=== PATIENT | female | born 1940 | race Caucasian/White ===

== ENCOUNTER 2017-06-01 09:56 | Inpatient (IN) | payer MEDICARE, BC ==
[2017-06-01] MEDS: Sodium Chloride 0.9% 10 ML Syringe FLUSH PRN (10:38)
--- NOTE | 2017-06-01 10:44 | EDM.PDOC ---
ED HPI GENERAL MEDICAL PROBLEM - General Chief Complaint: Gastrointestinal Problem Stated Complaint: PASSED ALOT OF BLOOD Time Seen by Provider: 06/01/17 10:07 Source of Information: Reports: Patient, Family History Limitations: Reports: Physical Impairment - History of Present Illness INITIAL COMMENTS - FREE TEXT/NARRATIVE: 76 years old w f with a h/o MW replacement, on Xarelto, came with her family to the ed due to blood in her stool and feeling dizzy and lightheaded, passing nearly out, feeling week. No C/P no N/V/D or any other acute medical issues. Onset: Today Onset Date: 06/01/17 Onset Time: 06:00 Duration: Hour(s): Location: Reports: Abdomen Severity: Moderate Improves with: Reports: Rest Worsens with: Reports: Movement Context: Reports: Other (blood in stool) Associated Symptoms: Reports: Loss of Appetite, Weakness - Related Data Allergies Allergy/AdvReac Type Severity Reaction Status Date / Time warfarin sodium Allergy Weakness Verified 06/01/17 10:02 [From Coumadin] Home Meds: Home Meds Acetaminophen [Tylenol] 650 mg PO Q4HR PRN 05/24/15 [History] Alendronate Sodium [Fosamax] 70 mg PO WEEKLY 05/24/15 [History] Glucosamine/Chondroitin Sulf A [Glucosamine Chondroitin Cap] 1 each PO DAILY 05/25 [History] Carvedilol 12.5 mg PO BID 06/01/17 [History] Cholecalciferol (Vitamin D3) [Vitamin D3] 1,000 units PO DAILY 06/01/17 [History ] Citalopram [Celexa] 20 mg PO DAILY 06/01/17 [History] Furosemide 40 mg PO DAILY 06/01/17 [History] Gluc HCl/Csa/Shalini Hy/Hyalur Ac [Glucosamine Chondroitin] 1 each PO DAILY [History] Lisinopril 10 mg PO DAILY 06/01/17 [History] Potassium Chloride 10 meq PO BID 06/01/17 [History] Ranitidine [Zantac] 150 mg PO BEDTIME 06/01/17 [History] Rivaroxaban [Xarelto] 20 mg PO DAILY 06/01/17 [History] atorvaSTATin [Lipitor] 40 mg PO DAILY 06/01/17 [History] Past Medical History HEENT History: Reports: Cataract Cardiovascular History: Reports: High Cholesterol, Other (See Below) Other Cardiovascular History: cardiomegaly Gastrointestinal History: Reports: Cholelithiasis Other Gastrointestinal History: LEFT HERNIA SURGERY; 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: Musculoskeletal History: Reports: Arthritis, Back Pain, Chronic Psychiatric History: Reports: Depression Endocrine/Metabolic History: Reports: None Hematologic History: Reports: None Immunologic History: Reports: None Oncologic (Cancer) History: Reports: None Dermatologic History: Reports: None - Past Surgical History HEENT Surgical History: Reports: Cataract Surgery, Tonsillectomy GI Surgical History: Reports: Appendectomy, Cholecystectomy, Colon, Colonoscopy , Hernia, Inguinal Female Surgical History: Reports: Hysterectomy Musculoskeletal Surgical History: Reports: Knee Replacement Social & Family History - Tobacco Use Smoking Status *Q: Never Smoker Second Hand Smoke Exposure: No - Alcohol Use Days Per Week of Alcohol Use: 0 - Recreational Drug Use Recreational Drug Use: No Drug Use in Last 12 Months: No ED ROS GENERAL - Review of Systems Review Of Systems: See Below Constitutional: Reports: Weakness HEENT: Reports: No Symptoms Respiratory: Reports: No Symptoms Cardiovascular: Reports: No Symptoms Endocrine: Reports: No Symptoms GI/Abdominal: Reports: Bloody Stool : Reports: No Symptoms Musculoskeletal: Reports: No Symptoms Skin: Reports: No Symptoms Neurological: Reports: No Symptoms Psychiatric: Reports: No Symptoms Hematologic/Lymphatic: Reports: No Symptoms Immunologic: Reports: No Symptoms ED EXAM, GI/ABD - Physical Exam Exam: See Below Exam Limited By: Other (weakness) General Appearance: Alert, WD/WN, Mild Distress, Thin Eyes: Bilateral: Normal Appearance Ears: Normal External Exam Nose: Normal Inspection Throat/Mouth: Normal Inspection Head: Atraumatic, Normocephalic Neck: Normal Inspection, Supple, Non-Tender, Full Range of Motion Respiratory/Chest: No Respiratory Distress, Lungs Clear Cardiovascular: Normal Peripheral Pulses, Regular Rate, Rhythm, No Edema GI/Abdominal Exam: Normal Bowel Sounds, Soft, Non-Tender, No Organomegaly (Female) Exam: Deferred Rectal (Female) Exam: Bloody Stool (brown stool quiac pos) Back Exam: Normal Inspection, Full Range of Motion Extremities: Normal Inspection, Normal Range of Motion, Non-Tender Neurological: Alert, Oriented, CN II-XII Intact, Normal Cognition, Normal Gait Psychiatric: Normal Affect Skin Exam: Warm, Dry, Pallor Lymphatic: No Adenopathy Course - Vital Signs Text/Narrative:: 76 years old w f with a h/o MW replacement, on Xarelto, came with her family to the ed due to blood in her stool and feeling dizzy and lightheaded, passing nearly out, feeling week. No C/P no N/V/D or any other acute medical issues. PE: Pale, weak apperaing WF, feeling dizzy with hematochezia Labs: WBC 4.3 HGH 8.9 Quiac stool pos. brown Impression: Near syncopal episode, anemia, hematochezia Tx: NS, Protonix 11.40 am Consultation: Dr. Lopez: Accepted the pt for admission, requesting GI consult 11.49 am Consultation: Dr Leslie: NPO now, Stop Xarelto Reexam: Improved Plan: Admit to meds surge tele. Last Recorded V/S: Last Vital Signs Temp 36.4 C 06/01/17 11:56 Pulse 60 06/01/17 11:56 Resp 18 06/01/17 11:56 BP 95/45 L 06/01/17 11:56 Pulse Ox 98 06/01/17 11:56 - Orders/Labs/Meds Orders: Active Orders 24 hr Category Date Time Status TYPE AND SCREEN [BBK] Stat Lab 06/01/17 10:25 Received Sodium Chloride 0.9% [Normal Saline] 1,000 ml Med 06/01/17 10:45 Active IV ASDIRECTED Sodium Chloride 0.9% [Normal Saline] 250 ml Med 06/01/17 11:45 Active IV ASDIRECTED Sodium Chloride 0.9% [Saline Flush] Med 06/01/17 10:15 Active 10 ml FLUSH ASDIRECTED PRN Peripheral IV Insertion Adult [OM.PC] Routine Oth 06/01/17 10:15 Ordered Transfuse PRBC [Transfuse Red Blood Cells] [COMM] Stat Oth 06/01/17 11:36 Ordered Medication Orders Sodium Chloride (Normal Saline) 1,000 mls @ 125 mls/hr IV ASDIRECTED DONAVAN Last Admin: 06/01/17 10:58 Dose: 125 mls/hr Sodium Chloride (Normal Saline) 250 mls @ 100 mls/hr IV ASDIRECTED DONAVAN Ondansetron HCl (Zofran) 4 mg IV Q4H PRN PRN Reason: Nausea/Vomiting Pantoprazole Sodium (Protonix Iv) 40 mg IVPUSH Q12H DONAVAN Last Admin: 06/01/17 12:04 Dose: Sodium Chloride (Saline Flush) 10 ml FLUSH ASDIRECTED PRN PRN Reason: Keep Vein Open Last Admin: 06/01/17 10:38 Dose: 10 ml Labs: Laboratory Tests 06/01/17 06/01/17 06/01/17 Range/Units 10:25 10:25 10:25 WBC 4.3 L (4.5-12.0) X10-3/uL RBC 2.97 L (3.23-5.20) x10(6)uL Hgb 8.9 L D (11.5-15.5) g/dL Hct 27.1 L D (30.0-51.3) % MCV 91.0 (80-96) fL MCH 30.0 (27.7-33.6) pg MCHC 33.0 (32.2-35.4) g/dL RDW 12.7 (11.5-15.5) % Plt Count 216 (125-369) X10(3)uL MPV 8.0 (7.4-10.4) fL Neut % (Auto) 61.7 (46-82) % Lymph % (Auto) 28.2 (13-37) % Patrick % (Auto) 7.5 (4-12) % Eos % (Auto) 1 (1.0-5.0) % Baso % (Auto) 2 (0-2) % Neut # (Auto) 2.7 (1.6-8.3) # Lymph # (Auto) 1.2 (0.6-5.0) # Patrick # (Auto) 0.3 (0.0-1.3) # Eos # (Auto) 0.0 (0.0-0.8) # Baso # (Auto) 0.1 (0.0-0.2) # PT 15.4 H (8.7-11.1) INR 1.51 H (0.89-1.13) Sodium 138 (135-145) mmol/L Potassium 4.4 (3.5-5.3) mmol/L Chloride 109 D (100-110) mmol/L Carbon Dioxide 20 L (23-29) mmol/L BUN 25 H D (8-23) mg/dL Creatinine 1.1 (0.6-1.3) mg/dL Est Cr Clr Drug Dosing 36.40 mL/min Estimated GFR (MDRD) 48 L (>60) BUN/Creatinine Ratio 22.7 H (9-20) Glucose 137 H (80-116) mg/dL Calcium 8.7 (8.6-10.2) mg/dL B-Natriuretic Peptide (0-100) pg/mL Urine Color (YELLOW) Urine Appearance (CLEAR) Urine pH (5.0-6.5) Ur Specific [place] (1.010-1.025) Urine Protein (NEGATIVE) mg/dL Urine Glucose (UA) (NEGATIVE) mg/dL Urine Ketones (NEGATIVE) mg/dL Urine Occult Blood (NEGATIVE) Urine Nitrite (NEGATIVE) Urine Bilirubin (NEGATIVE) Urine Urobilinogen (NEGATIVE) mg/dL Ur Leukocyte Esterase (NEGATIVE) Urine RBC (0) Urine WBC (0) Ur Squamous Epith Cells (NS,R,O) Urine Bacteria (NS) Hyaline Casts (NS) 06/01/17 06/01/17 Range/Units 10:25 11:38 WBC (4.5-12.0) X10-3/uL RBC (3.23-5.20) x10(6)uL Hgb (11.5-15.5) g/dL Hct (30.0-51.3) % MCV (80-96) fL MCH (27.7-33.6) pg MCHC (32.2-35.4) g/dL RDW (11.5-15.5) % Plt Count (125-369) X10(3)uL MPV (7.4-10.4) fL Neut % (Auto) (46-82) % Lymph % (Auto) (13-37) % Patrick % (Auto) (4-12) % Eos % (Auto) (1.0-5.0) % Baso % (Auto) (0-2) % Neut # (Auto) (1.6-8.3) # Lymph # (Auto) (0.6-5.0) # Patrick # (Auto) (0.0-1.3) # Eos # (Auto) (0.0-0.8) # Baso # (Auto) (0.0-0.2) # PT (8.7-11.1) INR (0.89-1.13) Sodium (135-145) mmol/L Potassium (3.5-5.3) mmol/L Chloride (100-110) mmol/L Carbon Dioxide (23-29) mmol/L BUN (8-23) mg/dL Creatinine (0.6-1.3) mg/dL Est Cr Clr Drug Dosing mL/min Estimated GFR (MDRD) (>60) BUN/Creatinine Ratio (9-20) Glucose (80-116) mg/dL Calcium (8.6-10.2) mg/dL B-Natriuretic Peptide 50 (0-100) pg/mL Urine Color Yellow (YELLOW) Urine Appearance Slightly cloudy (CLEAR) Urine pH 5.0 (5.0-6.5) Ur Specific [place] 1.015 (1.010-1.025) Urine Protein Negative (NEGATIVE) mg/dL Urine Glucose (UA) Normal (NEGATIVE) mg/dL Urine Ketones Negative (NEGATIVE) mg/dL Urine Occult Blood Large H (NEGATIVE) Urine Nitrite Negative (NEGATIVE) Urine Bilirubin Negative (NEGATIVE) Urine Urobilinogen Normal (NEGATIVE) mg/dL Ur Leukocyte Esterase Negative (NEGATIVE) Urine RBC 0-5 (0) Urine WBC 0-5 (0) Ur Squamous Epith Cells Few H (NS,R,O) Urine Bacteria Few H (NS) Hyaline Casts Few H (NS) Meds: Medications Generic Name Dose Route Start Last Admin Trade Name Freq PRN Reason Stop Dose Admin Sodium Chloride 1,000 mls @ 125 mls/hr 06/01/17 10:45 06/01/17 10:58 Normal Saline IV 125 mls/hr ASDIRECTED DONAVAN Administration Sodium Chloride 250 mls @ 100 mls/hr 06/01/17 11:45 Normal Saline IV ASDIRECTED DONAVAN Ondansetron HCl 4 mg 06/01/17 11:39 Zofran IV Q4H PRN Nausea/Vomiting Pantoprazole Sodium 40 mg 06/01/17 11:45 06/01/17 12:04 Protonix Iv IVPUSH Not Given Q12H DONAVAN Sodium Chloride 10 ml 06/01/17 10:15 06/01/17 10:38 Saline Flush FLUSH 10 ml ASDIRECTED PRN Administration Keep Vein Open Discontinued Medications Generic Name Dose Route Start Last Admin Trade Name Helen PRN Reason Stop Dose Admin Lactated Ringer's 1,000 mls @ 125 mls/hr 06/01/17 11:45 Ringers, Lactated IV ASDIRECTED [facility] Pantoprazole Sodium 40 mg 06/01/17 11:01 06/01/17 11:02 Protonix Iv IVPUSH 06/01/17 11:02 40 mg ONETIME ONE Administration Departure - Departure Time of Disposition: 11:51 Disposition: Admitted As Inpatient 64 Condition: Fair Clinical Impression: Anemia GI bleed Qualifiers: GI bleed type/associated pathology: unspecified gastrointestinal hemorrhage type Qualified Code(s): K92.2 - Gastrointestinal hemorrhage, unspecified - Discharge Information - My Orders Last 24 Hours: My Active Orders 06/01/17 10:15 Sodium Chloride 0.9% [Saline Flush] 10 ml FLUSH ASDIRECTED PRN Peripheral IV Insertion Adult [OM.PC] Routine 06/01/17 10:25 TYPE AND SCREEN [BBK] Stat 06/01/17 10:45 Sodium Chloride 0.9% [Normal Saline] 1,000 ml IV ASDIRECTED 06/01/17 11:36 Transfuse PRBC [Transfuse Red Blood Cells] [COMM] Stat 06/01/17 11:45 Sodium Chloride 0.9% [Normal Saline] 250 ml IV ASDIRECTED - Assessment/Plan Last 24 Hours: My Active Orders 06/01/17 10:15 Sodium Chloride 0.9% [Saline Flush] 10 ml FLUSH ASDIRECTED PRN Peripheral IV Insertion Adult [OM.PC] Routine 06/01/17 10:25 TYPE AND SCREEN [BBK] Stat 06/01/17 10:45 Sodium Chloride 0.9% [Normal Saline] 1,000 ml IV ASDIRECTED 06/01/17 11:36 Transfuse PRBC [Transfuse Red Blood Cells] [COMM] Stat 06/01/17 11:45 Sodium Chloride 0.9% [Normal Saline] 250 ml IV ASDIRECTED
[2017-06-01] MEDS: Sodium Chloride 0.9% 1,000 ML IV SCH ×2 (10:58→22:33)
[2017-06-01] MEDS: Pantoprazole 40 MG in Sodium Chloride 0.9% 100 ML IV ONE ×2 (11:00→11:02)
[2017-06-01] MEDS ORDERED: Pantoprazole 40 MG Vial IVPUSH ONE (11:01)
[2017-06-01] MEDS ORDERED: Ondansetron 4 MG/2 ML SDV IV PRN (11:39)
[2017-06-01] MEDS ORDERED: Lactated Ringers 1,000 ML IV SCH (11:45)
[2017-06-01] MEDS ORDERED: Sodium Chloride 0.9% 250 ML IV SCH (11:45)
[2017-06-01] MEDS: Pantoprazole 40 MG Vial IVPUSH SCH (12:04)
--- NOTE | 2017-06-01 14:01 | PCM.HP ---
H&P History of Present Illness - General Date of Service: 06/01/17 Admit Problem/Dx: Admission Diagnosis/Problem Admission Diagnosis/Problem Syncope Source of Information: Patient, Family, Old Records History Limitations: Reports: No Limitations - History of Present Illness Initial Comments - Free Text/Narative: 76-year-old female complaining of bright red blood per rectum. This happened this morning once where she noted blood in the toilet bowel, and again in the emergency room with fresh blood noted in the toilet. Was quantified as large amounts. She complains of no pain but was noted to be dizzy ,hypotensive and pale the emergency room. She is on Xarelto for paroxysmal atrial fibrillation last 6 months She has a history of diverticulosis from a lower GI study done in November 2015. Also has a h/o HTN, non-ischemic cardiomyopathy that are stable.She denies fever,or chest pain. - Related Data Allergies/Adverse Reactions: Allergies Allergy/AdvReac Type Severity Reaction Status Date / Time warfarin sodium Allergy Weakness Verified 06/01/17 10:02 [From Coumadin] Home Medications: Home Meds Acetaminophen [Tylenol] 650 mg PO Q4HR PRN 05/24/15 [History] Alendronate Sodium [Fosamax] 70 mg PO WEEKLY 05/24/15 [History] Glucosamine/Chondroitin Sulf A [Glucosamine Chondroitin Cap] 1 each PO DAILY 05/25 [History] Carvedilol 12.5 mg PO BID 06/01/17 [History] Cholecalciferol (Vitamin D3) [Vitamin D3] 1,000 units PO DAILY 06/01/17 [History ] Citalopram [Celexa] 20 mg PO DAILY 06/01/17 [History] Furosemide 40 mg PO DAILY 06/01/17 [History] Gluc HCl/Csa/Shalini Hy/Hyalur Ac [Glucosamine Chondroitin] 1 each PO DAILY [History] Lisinopril 10 mg PO DAILY 06/01/17 [History] Potassium Chloride 10 meq PO BID 06/01/17 [History] Ranitidine [Zantac] 150 mg PO BEDTIME 06/01/17 [History] Rivaroxaban [Xarelto] 20 mg PO DAILY 06/01/17 [History] atorvaSTATin [Lipitor] 40 mg PO DAILY 06/01/17 [History] Past Medical History HEENT History: Reports: Cataract Cardiovascular History: Reports: High Cholesterol, Other (See Below) Other Cardiovascular History: cardiomegaly Gastrointestinal History: Reports: Cholelithiasis Other Gastrointestinal History: LEFT HERNIA SURGERY; 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: Musculoskeletal History: Reports: Arthritis, Back Pain, Chronic Psychiatric History: Reports: Depression Endocrine/Metabolic History: Reports: None Hematologic History: Reports: None Immunologic History: Reports: None Oncologic (Cancer) History: Reports: None Dermatologic History: Reports: None - Infectious Disease History Infectious Disease History: Reports: Chicken Pox - Past Surgical History HEENT Surgical History: Reports: Cataract Surgery, Tonsillectomy GI Surgical History: Reports: Appendectomy, Cholecystectomy, Colon, Colonoscopy , Hernia, Inguinal Female Surgical History: Reports: Hysterectomy Musculoskeletal Surgical History: Reports: Knee Replacement Social & Family History - Family History Family Medical History: Noncontributory - Tobacco Use Smoking Status *Q: Never Smoker Second Hand Smoke Exposure: No - Caffeine Use Caffeine Use: Reports: None - Alcohol Use Days Per Week of Alcohol Use: 0 - Recreational Drug Use Recreational Drug Use: No Drug Use in Last 12 Months: No H&P Review of Systems - Review of Systems: Review Of Systems: ROS reveals no pertinent complaints other than HPI. Exam - Exam Exam: See Below - Vital Signs Vital Signs: Last Vital Signs Temp 97.6 F 06/01/17 11:56 Pulse 60 06/01/17 11:56 Resp 18 06/01/17 11:56 BP 95/45 L 06/01/17 11:56 Pulse Ox 98 06/01/17 11:56 Weight: 55.837 kg - Exam General: Alert, Oriented, 4 HEENT: PERRLA, Hearing Intact, Mucosa Moist & [place], Nares Patent, Normal Nasal Septum, Posterior Pharynx Clear, Conjunctiva Clear, EOMI, EACs Clear, TMs Clear Neck: Supple, Trachea Midline, 2 Lungs: Clear to Auscultation, Normal Respiratory Effort Cardiovascular: Regular Rate, Regular Rhythm GI/Abdominal Exam: Normal Bowel Sounds, Soft, Non-Tender, No Organomegaly, No Distention, No Abnormal Bruit, No Mass, Pelvis Stable (Female) Exam: Deferred Rectal (Female) Exam: Deferred Back Exam: Normal Inspection, Full Range of Motion, NT Extremities: Normal Inspection, Normal Range of Motion, Non-Tender, No Pedal Edema, Normal Capillary Refill Skin: Warm, Dry, Intact Neurological: Cranial Nerves Intact, Reflexes Equal Bilateral Neuro Extensive - Mental Status: Alert, Oriented x3, Normal Mood/Affect, Normal Cognition Neuro Extensive - Motor, Sensory, Reflexes: CN II-XII Intact, Normal Gait, Normal Reflexes Psychiatric: Alert, Normal Affect, Normal Mood - Patient Data Result Diagrams: 06/01/17 10:25 06/01/17 10:25 *Q Meaningful Use (ADM) - VTE *Q VTE Criteria *Q: - Stroke *Q Stroke Criteria *Q: - AMI *Q AMI Criteria *Q: - Problem List (1) Diverticula of colon SNOMED Code(s): 530216434 ICD Code: K57.30 - DVRTCLOS OF LG INT W/O PERFORATION OR ABSCESS W/O BLEEDING Status: Acute Current Visit: Yes (2) Afib SNOMED Code(s): 87584503 ICD Code: I48.91 - UNSPECIFIED ATRIAL FIBRILLATION Status: Acute Current Visit: Yes Qualifiers: Atrial fibrillation type: paroxysmal Qualified Code(s): I48.0 - Paroxysmal atrial fibrillation (3) Long-term (current) use of anticoagulants SNOMED Code(s): 863099624 ICD Code: Z79.01 - FDC (CURRENT) USE OF ANTICOAGULANTS Status: Acute Current Visit: Yes (4) Hiatal hernia SNOMED Code(s): 80276390 ICD Code: K44.9 - DIAPHRAGMATIC HERNIA WITHOUT OBSTRUCTION OR GANGRENE Status: Acute Current Visit: Yes (5) Anemia SNOMED Code(s): 818665833 ICD Code: D64.9 - ANEMIA, UNSPECIFIED Status: Acute Current Visit: Yes Qualifiers: Anemia type: iron deficiency (6) GI bleed SNOMED Code(s): 31159429 ICD Code: K92.2 - GASTROINTESTINAL HEMORRHAGE, UNSPECIFIED Status: Acute Current Visit: Yes Qualifiers: GI bleed type/associated pathology: diverticulosis Qualified Code(s): K57.91 - Diverticulosis of intestine, part unspecified, without perforation or abscess with bleeding (7) Colon polyp SNOMED Code(s): 14961703 ICD Code: K63.5 - POLYP OF COLON Status: Acute Current Visit: No Qualifiers: Colon polyp type: unspecified (8) MDD (major depressive disorder) SNOMED Code(s): 872500858 ICD Code: F32.9 - MAJOR DEPRESSIVE DISORDER, SINGLE EPISODE, UNSPECIFIED Status: Acute Current Visit: Yes (9) HTN (hypertension) SNOMED Code(s): 53878492 ICD Code: I10 - ESSENTIAL (PRIMARY) HYPERTENSION Status: Acute Current Visit: Yes (10) Non-ischemic cardiomyopathy SNOMED Code(s): 29594473 ICD Code: I42.8 - OTHER CARDIOMYOPATHIES Status: Acute Current Visit: Yes Problem List Initiated/Reviewed/Updated: Yes Orders Last 24hrs: Active Orders 24 hr Category Date Time Status Cardiac Monitoring [RC] .As Directed Care 06/01/17 12:09 Active NPO Now [Nothing per Oral Now Diet] [DIET] Diet 06/01/17 Dinner Ordered RED BLOOD CELLS LP [BBK] Routine Lab 06/01/17 10:25 Results Medication Orders Sodium Chloride (Normal Saline) 1,000 mls @ 125 mls/hr IV ASDIRECTED DONAVAN Last Admin: 06/01/17 10:58 Dose: 125 mls/hr Sodium Chloride (Normal Saline) 250 mls @ 100 mls/hr IV ASDIRECTED DONAVAN Ondansetron HCl (Zofran) 4 mg IV Q4H PRN PRN Reason: Nausea/Vomiting Pantoprazole Sodium (Protonix Iv) 40 mg IVPUSH Q12H DONAVAN Last Admin: 06/01/17 12:04 Dose: Sodium Chloride (Saline Flush) 10 ml FLUSH ASDIRECTED PRN PRN Reason: Keep Vein Open Last Admin: 06/01/17 10:38 Dose: 10 ml Assessment/Plan Comment:: Her baseline hemoglobin from December this year is 12.9 g/dl. Dwon to 8.[address] blood products with PRBCs 2 units of 8 hours. PPI is not a bad idea.I have also consulted Dr. Gilbert to see if colonoscopy is needed.She had one last y ear(11/22)-. In the meantime I will hold off on several. We'll resume home medications.
[2017-06-01] MEDS: Famotidine 20 MG Tab PO SCH (21:38)
[2017-06-01] MEDS ORDERED: Acetaminophen 325 MG Tab PO PRN (21:49)
[2017-06-02] MEDS: Pantoprazole 40 MG Vial IVPUSH SCH ×3 (00:15→23:51)
[2017-06-02] MEDS: Sodium Chloride 0.9% 1,000 ML IV SCH (06:09)
--- NOTE | 2017-06-02 09:03 | PCM.PN ---
- General Info Date of Service: 06/02/17 Admission Dx/Problem (Free Text): Admission Diagnosis/Problem Admission Diagnosis/Problem Syncope Subjective Update: Patient slept well overnight, complains of mild to moderate left lower quadrant abdominal pain. She had normal stools with no blood. No vomiting chest pain or shortness of breath. Functional Status: Reports: New Symptoms (LLQ apin) - Review of Systems General: Reports: No Symptoms HEENT: Reports: No Symptoms Pulmonary: Reports: No Symptoms Cardiovascular: Reports: No Symptoms Gastrointestinal: Denies: Hematochezia, Nausea, Vomiting - Patient Data Vitals - Most Recent: Last Vital Signs Temp 97.8 F 06/02/17 04:50 Pulse 65 06/02/17 04:50 Resp 18 06/02/17 04:50 BP 148/78 H 06/02/17 04:50 Pulse Ox 95 06/02/17 04:50 Weight - Most Recent: 56.472 kg I&O - Last 24 Hours: Intake & Output 06/01/17 06/02/17 06/02/17 22:59 06:59 14:59 Intake Total 88 888 Output Total 1000 350 Balance -912 538 Lab Results Last 24 Hours: Laboratory Results - last 24 hr 06/02/17 Range/Units 06:10 WBC 4.3 L (4.5-12.0) X10-3/uL RBC 3.80 (3.23-5.20) x10(6)uL Hgb 11.0 L (11.5-15.5) g/dL Hct 33.2 (30.0-51.3) % MCV 87.5 (80-96) fL MCH 28.8 (27.7-33.6) pg MCHC 32.9 (32.2-35.4) g/dL RDW 13.0 (11.5-15.5) % Plt Count 163 (125-369) X10(3)uL MPV 7.8 (7.4-10.4) fL Neut % (Auto) 56.2 (46-82) % Lymph % (Auto) 31.9 (13-37) % [place] % (Auto) 10.6 (4-12) % Eos % (Auto) 1 (1.0-5.0) % Baso % (Auto) 1 (0-2) % Neut # (Auto) 2.4 (1.6-8.3) # Lymph # (Auto) 1.4 (0.6-5.0) # [place] # (Auto) 0.5 (0.0-1.3) # Eos # (Auto) 0.0 (0.0-0.8) # Baso # (Auto) 0.0 (0.0-0.2) # Med Orders - Current: Current Medications Acetaminophen (Tylenol) 650 mg PO Q4H PRN PRN Reason: Pain Last Admin: 06/01/17 22:12 Dose: 650 mg Citalopram Hydrobromide (Celexa) 20 mg PO DAILY [facility] Famotidine (Pepcid) 20 mg PO BEDTIME [facility] Last Admin: 06/01/17 21:38 Dose: 20 mg Furosemide (Lasix) 40 mg PO DAILY [facility] Ondansetron HCl (Zofran) 4 mg IV Q4H PRN PRN Reason: Nausea/Vomiting Pantoprazole Sodium (Protonix Iv) 40 mg IVPUSH Q12H [facility] Last Admin: 06/02/17 00:15 Dose: 40 mg Sodium Chloride (Saline Flush) 10 ml FLUSH ASDIRECTED PRN PRN Reason: Keep Vein Open Last Admin: 06/01/17 10:38 Dose: 10 ml Discontinued Medications Sodium Chloride (Normal Saline) 1,000 mls @ 125 mls/hr IV ASDIRECTED [facility] Last Admin: 06/02/17 06:09 Dose: 125 mls/hr Sodium Chloride (Normal Saline) 250 mls @ 100 mls/hr IV ASDIRECTED [facility] Lactated Ringer's (Ringers, Lactated) 1,000 mls @ 125 mls/hr IV ASDIRECTED [facility] Pantoprazole Sodium (Protonix Iv) 40 mg IVPUSH ONETIME ONE Stop: 06/01/17 11:02 Last Admin: 06/01/17 11:02 Dose: 40 mg - Exam General: Alert, Oriented HEENT: Pupils Equal, Pupils Reactive, EOMI, Mucous Membr. Moist/[place] Neck: Supple Lungs: Clear to Auscultation, Normal Respiratory Effort Cardiovascular: Regular Rate, Regular Rhythm GI/Abdominal Exam: Normal Bowel Sounds, Tender (LLQ). No: Rebound, Hernia, Mass , Hepatomegaly - Problem List & Annotations (1) Diverticula of colon SNOMED Code(s): 898934941 Code(s): K57.30 - DVRTCLOS OF LG INT W/O PERFORATION OR ABSCESS W/O BLEEDING Status: Acute Current Visit: Yes (2) Afib SNOMED Code(s): 06378617 Code(s): I48.91 - UNSPECIFIED ATRIAL FIBRILLATION Status: Acute Current Visit: Yes Qualifiers: Atrial fibrillation type: paroxysmal Qualified Code(s): I48.0 - Paroxysmal atrial fibrillation (3) Long-term (current) use of anticoagulants SNOMED Code(s): 610647169 Code(s): Z79.01 - REAL ESTATE LEGAL ASSISTANT (CURRENT) USE OF ANTICOAGULANTS Status: Acute Current Visit: Yes (4) Hiatal hernia SNOMED Code(s): 15771429 Code(s): K44.9 - DIAPHRAGMATIC HERNIA WITHOUT OBSTRUCTION OR GANGRENE Status: Acute Current Visit: Yes (5) Anemia SNOMED Code(s): 205986132 Code(s): D64.9 - ANEMIA, UNSPECIFIED Status: Acute Current Visit: Yes Qualifiers: Anemia type: iron deficiency (6) GI bleed SNOMED Code(s): 94662430 Code(s): K92.2 - GASTROINTESTINAL HEMORRHAGE, UNSPECIFIED Status: Acute Current Visit: Yes Qualifiers: GI bleed type/associated pathology: diverticulosis Qualified Code(s): K57.91 - Diverticulosis of intestine, part unspecified, without perforation or abscess with bleeding (7) Colon polyp SNOMED Code(s): 93779779 Code(s): K63.5 - POLYP OF COLON Status: Acute Current Visit: No Qualifiers: Colon polyp type: unspecified (8) MDD (major depressive disorder) SNOMED Code(s): 139634018 Code(s): F32.9 - MAJOR DEPRESSIVE DISORDER, SINGLE EPISODE, UNSPECIFIED Status: Acute Current Visit: Yes (9) HTN (hypertension) SNOMED Code(s): 79596727 Code(s): I10 - ESSENTIAL (PRIMARY) HYPERTENSION Status: Acute Current Visit: Yes (10) Non-ischemic cardiomyopathy SNOMED Code(s): 92412998 Code(s): I42.8 - OTHER CARDIOMYOPATHIES Status: Acute Current Visit: Yes (11) LLQ abdominal pain SNOMED Code(s): 759499645 Code(s): R10.32 - LEFT LOWER QUADRANT PAIN Status: Acute Current Visit: Yes - Problem List Review Problem List Initiated/Reviewed/Updated: Yes - My Orders Last 24 Hours: My Active Orders 06/01/17 14:07 Height and Weight [RC] 06 06/01/17 14:08 Intake and Output [RC] 06,14,22 Oxygen Therapy [RC] PRN Vital Signs [RC] Q4H 06/01/17 21:00 Famotidine [Pepcid] 20 mg PO BEDTIME 06/01/17 21:49 Acetaminophen [Tylenol] 650 mg PO Q4H PRN 06/02/17 08:57 Abdomen Pelvis w Cont [CT] Routine 06/02/17 08:58 Convert IV to Saline Lock [OM.PC] Urgent 06/02/17 09:00 Citalopram [Celexa] 20 mg PO DAILY Furosemide [Lasix] 40 mg PO DAILY 06/02/17 Lunch Adult Diet [DIET] 06/03/17 05:11 BASIC METABOLIC PANEL,BMP [CHEM] AM CBC WITH AUTO DIFF [HEME] AM - Plan Plan:: Her hemoglobin is up to 11. I discussed to Dr. Leslie yesterday, she had an EGD barely 2 months ago, and a colonoscopy year ago that showed diverticulosis. We believe that the diverticulosis is the source of the bleeding along with the Xarelto. Her hemoglobin is stable now and vital signs remain stable and she is asymptomatic after stopping the anticoagulant. The new pain in the abdomen will be investigated by CT scan. Meanwhile,I have advanced her diet today and will repeat the hemoglobin and hematocrit tomorrow morning with intention of discharging home,if stable
[2017-06-02] MEDS: Citalopram 20 MG Tab PO SCH (09:39)
[2017-06-02] MEDS: Furosemide 40 MG Tab PO SCH (09:39)
[2017-06-02] MEDS ORDERED: Iopamidol 755 Mg/ML 75 ML Bottle IV ONE (10:32)
--- NOTE | 2017-06-02 11:07 | CONS ---
DATE OF CONSULTATION: 06/02/2017 HISTORY: This 76-year-old female, seen in consultation from Dr. Lopez for evaluation of hematochezia. The patient presented to the emergency room yesterday with couple episodes of bright red blood per rectum. She was also hypotensive, lightheaded, and dizzy. She has a history of diverticulosis on her last colonoscopy a year and a half ago. She has had a previous episode of bleeding presumed from diverticulosis, but not as much blood as the recent episode. She also has a known hiatal hernia and is considering hiatal hernia surgery in the near future. She recently had an upper endoscopy for evaluation. She is also on Xarelto for atrial fibrillation. Since being hospitalized, she has received IV fluids and 2 units of packed red blood cells. Her hemoglobin has gone from 8.9 to 11. She is feeling much better today and denies any of her dizziness or lightheadedness. Her vitals are reviewed and improved. PAST MEDICAL HISTORY: Reviewed as above. PHYSICAL EXAMINATION: GENERAL: She is a pleasant lady in no acute distress. Her vitals are reviewed and within normal limits. Labs were also reviewed. GI: Abdomen is soft with mild left-sided tenderness. There are no masses or hernias palpable. ASSESSMENT: Lower GI bleed. PLAN: The patient's bleeding appears to have stopped since she has not had a bloody stool since yesterday. CT scan of the abdomen and pelvis are ordered for today to rule out any colitis or other etiology. If no abnormalities are seen, I do not feel that another colonoscopy is necessary since she had one done last year. /[id number] VANDANA/NELLA
[2017-06-02] MEDS: Sodium Chloride 0.9% 10 ML Syringe FLUSH PRN ×2 (11:46→23:51)
[2017-06-02] MEDS: Famotidine 20 MG Tab PO SCH (20:02)
--- NOTE | 2017-06-03 08:46 | PCM.PN ---
- General Info Date of Service: 06/03/17 Admission Dx/Problem (Free Text): Patient without complaints. She denies rectal bleeding, fevers, chills, shortness of breath, abdominal pain, diarrhea, constipation or vomiting. Shows has a little chest discomfort and she is going to see the combat control in 2 days for this. - Patient Data Vitals - Most Recent: Last Vital Signs Temp 97.8 F 06/03/17 05:30 Pulse 76 06/03/17 05:30 Resp 18 06/03/17 05:30 BP 156/69 H 06/03/17 05:30 Pulse Ox 97 06/03/17 05:30 Weight - Most Recent: 123 lb 12.8 oz I&O - Last 24 Hours: Intake & Output 06/02/17 06/03/17 06/03/17 22:59 06:59 14:59 Intake Total 0 400 Balance 0 400 Lab Results Last 24 Hours: Laboratory Results - last 24 hr 06/03/17 06/03/17 Range/Units 06:30 06:30 WBC 5.2 (4.5-12.0) X10-3/uL RBC 3.90 (3.23-5.20) x10(6)uL Hgb 11.4 L (11.5-15.5) g/dL Hct 34.5 (30.0-51.3) % MCV 88.5 (80-96) fL MCH 29.2 (27.7-33.6) pg MCHC 33.0 (32.2-35.4) g/dL RDW 12.8 (11.5-15.5) % Plt Count 179 (125-369) X10(3)uL MPV 8.2 (7.4-10.4) fL Neut % (Auto) 60.5 (46-82) % Lymph % (Auto) 27.7 (13-37) % [place] % (Auto) 10.3 (4-12) % Eos % (Auto) 1 (1.0-5.0) % Baso % (Auto) 1 (0-2) % Neut # (Auto) 3.3 (1.6-8.3) # Lymph # (Auto) 1.4 (0.6-5.0) # [place] # (Auto) 0.5 (0.0-1.3) # Eos # (Auto) 0.0 (0.0-0.8) # Baso # (Auto) 0.0 (0.0-0.2) # Sodium 138 (135-145) mmol/L Potassium 3.5 (3.5-5.3) mmol/L Chloride 106 (100-110) mmol/L Carbon Dioxide 24 (23-29) mmol/L BUN 16 (8-23) mg/dL Creatinine 0.8 (0.6-1.3) mg/dL Est Cr Clr Drug Dosing 50.05 mL/min Estimated GFR (MDRD) > 60 (>60) BUN/Creatinine Ratio 20.0 (9-20) Glucose 92 (80-116) mg/dL Calcium 8.0 L (8.6-10.2) mg/dL Med Orders - Current: Current Medications Acetaminophen (Tylenol) 650 mg PO Q4H PRN PRN Reason: Pain Last Admin: 06/01/17 22:12 Dose: 650 mg Citalopram Hydrobromide (Celexa) 20 mg PO DAILY [facility] Last Admin: 06/02/17 09:39 Dose: 20 mg Famotidine (Pepcid) 20 mg PO BEDTIME [facility] Last Admin: 06/02/17 20:02 Dose: 20 mg Furosemide (Lasix) 40 mg PO DAILY [facility] Last Admin: 06/02/17 09:39 Dose: 40 mg Ondansetron HCl (Zofran) 4 mg IV Q4H PRN PRN Reason: Nausea/Vomiting Pantoprazole Sodium (Protonix Iv) 40 mg IVPUSH Q12H [facility] Last Admin: 06/02/17 23:51 Dose: 40 mg Sodium Chloride (Saline Flush) 10 ml FLUSH ASDIRECTED PRN PRN Reason: Keep Vein Open Last Admin: 06/02/17 23:51 Dose: 10 ml Discontinued Medications Sodium Chloride (Normal Saline) 1,000 mls @ 125 mls/hr IV ASDIRECTED [facility] Last Admin: 06/02/17 06:09 Dose: 125 mls/hr Sodium Chloride (Normal Saline) 250 mls @ 100 mls/hr IV ASDIRECTED [facility] Lactated Ringer's (Ringers, Lactated) 1,000 mls @ 125 mls/hr IV ASDIRECTED [facility] Iopamidol (Isovue-370 (76%)) 75 ml IV ONETIME ONE Stop: 06/02/17 10:33 Last Admin: 06/02/17 11:23 Dose: 75 ml Pantoprazole Sodium (Protonix Iv) 40 mg IVPUSH ONETIME ONE Stop: 06/01/17 11:02 Last Admin: 06/01/17 11:02 Dose: 40 mg - Exam General: Alert, Oriented Lungs: Normal Respiratory Effort GI/Abdominal Exam: Normal Bowel Sounds, Soft, Non-Tender, No Organomegaly, No Distention, No Abnormal Bruit, No Mass - Problem List & Annotations (1) GI bleed SNOMED Code(s): 07728660 Code(s): K92.2 - GASTROINTESTINAL HEMORRHAGE, UNSPECIFIED Status: Acute Current Visit: Yes Qualifiers: GI bleed type/associated pathology: diverticulosis Qualified Code(s): K57.91 - Diverticulosis of intestine, part unspecified, without perforation or abscess with bleeding - Problem List Review Problem List Initiated/Reviewed/Updated: Yes - Plan Plan:: Patient maintain her hemoglobin. Discharge her home and hold nonsteroidal anti- inflammatories and her Xarelto for now. I will send a note to Dr. Mahoney in regards to what happened here on [facility] in our clinic.
--- NOTE | 2017-06-03 08:51 | PCM.DCSUM1 ---
Discharge Summary - Hospital Course Free Text/Narrative:: Patient was admitted and the hemoglobin is low and should bright red rectal bleeding. She has a history of diverticulitis. Left lower quadrant pain. She was given 2 units of RBCs and her Xarelto was held. She increase her hemoglobin to over 11. She'll consult with Dr. Leslie. She had a colonoscopy 1 year ago so he elected to do no procedure. Her bleeding stopped after she stopped the Xarelto. She maintained her hemoglobin. We'll discharge her home holding her Xarelto so she sees her primary provider. She does have an appointment with cardiology in 2 days for clearance of her heart regards to a hiatal hernia surgery she will have upcoming. Brief History: 76-year-old female complaining of bright red blood per rectum. This happened this morning once where she noted blood in the toilet bowel, and again in the emergency room with fresh blood noted in the toilet. Was quantified as large amounts. She complains of no pain but was noted to be dizzy ,hypotensive and pale the emergency room. She is on Xarelto for paroxysmal atrial fibrillation last 6 months She has a history of diverticulosis from a lower GI study done in November 2015. Also has a h/o HTN, non-ischemic cardiomyopathy that are stable.She denies fever,or chest pain. - Discharge Data Discharge Date: 06/03/17 Discharge Disposition: Home, Self-Care 01 Condition: Good - Discharge Diagnosis/Problem(s) (1) GI bleed SNOMED Code(s): 97206312 ICD Code: K92.2 - GASTROINTESTINAL HEMORRHAGE, UNSPECIFIED Status: Acute Current Visit: Yes Qualifiers: GI bleed type/associated pathology: diverticulosis Qualified Code(s): K57.91 - Diverticulosis of intestine, part unspecified, without perforation or abscess with bleeding - Patient Instructions Diet: Regular Diet as Tolerated Activity: Apply Ice Driving: May Drive Today Showering/Bathing: May Shower Other/Special Instructions: 1. Recheck with Dr. Alvarez in 7-10 days. 2. She has a cardiology appointment in 2 days from now. 3. Hold Xarelto and NSAIDS until she sees her primary physician. - Discharge Plan Home Medications: Home Meds Acetaminophen [Tylenol] 650 mg PO Q4HR PRN 05/24/15 [History] Alendronate Sodium [Fosamax] 70 mg PO WEEKLY 05/24/15 [History] Glucosamine/Chondroitin Sulf A [Glucosamine Chondroitin Cap] 1 each PO DAILY 05/25 [History] Carvedilol 12.5 mg PO BID 06/01/17 [History] Cholecalciferol (Vitamin D3) [Vitamin D3] 1,000 units PO DAILY 06/01/17 [History ] Citalopram [Citalopram HBr] 20 mg PO DAILY 06/01/17 [History] Furosemide 40 mg PO DAILY 06/01/17 [History] Gluc HCl/Csa/Shalini Hy/Hyalur Ac [Glucosamine Chondroitin] 1 each PO DAILY [History] Lisinopril 10 mg PO DAILY 06/01/17 [History] Potassium Chloride 10 meq PO BID 06/01/17 [History] Ranitidine [Zantac] 150 mg PO BEDTIME 06/01/17 [History] atorvaSTATin [Lipitor] 40 mg PO DAILY 06/01/17 [History] Patient Handouts: Fall Prevention in the Home, [id number], Gastrointestinal Bleeding Forms: ED Department Discharge Referrals: Chad Alvarez MD [Primary Care Provider] - - Patient Data Vitals - Most Recent: Last Vital Signs Temp 97.8 F 06/03/17 05:30 Pulse 76 06/03/17 05:30 Resp 18 06/03/17 05:30 BP 156/69 H 06/03/17 05:30 Pulse Ox 97 06/03/17 05:30 Weight - Most Recent: 123 lb 12.8 oz I&O - Last 24 hours: Intake & Output 06/02/17 06/03/17 06/03/17 22:59 06:59 14:59 Intake Total 0 400 Balance 0 400 Lab Results - Last 24 hrs: Laboratory Results - last 24 hr 06/03/17 06/03/17 Range/Units 06:30 06:30 WBC 5.2 (4.5-12.0) X10-3/uL RBC 3.90 (3.23-5.20) x10(6)uL Hgb 11.4 L (11.5-15.5) g/dL Hct 34.5 (30.0-51.3) % MCV 88.5 (80-96) fL MCH 29.2 (27.7-33.6) pg MCHC 33.0 (32.2-35.4) g/dL RDW 12.8 (11.5-15.5) % Plt Count 179 (125-369) X10(3)uL MPV 8.2 (7.4-10.4) fL Neut % (Auto) 60.5 (46-82) % Lymph % (Auto) 27.7 (13-37) % [place] % (Auto) 10.3 (4-12) % Eos % (Auto) 1 (1.0-5.0) % Baso % (Auto) 1 (0-2) % Neut # (Auto) 3.3 (1.6-8.3) # Lymph # (Auto) 1.4 (0.6-5.0) # [place] # (Auto) 0.5 (0.0-1.3) # Eos # (Auto) 0.0 (0.0-0.8) # Baso # (Auto) 0.0 (0.0-0.2) # Sodium 138 (135-145) mmol/L Potassium 3.5 (3.5-5.3) mmol/L Chloride 106 (100-110) mmol/L Carbon Dioxide 24 (23-29) mmol/L BUN 16 (8-23) mg/dL Creatinine 0.8 (0.6-1.3) mg/dL Est Cr Clr Drug Dosing 50.05 mL/min Estimated GFR (MDRD) > 60 (>60) BUN/Creatinine Ratio 20.0 (9-20) Glucose 92 (80-116) mg/dL Calcium 8.0 L (8.6-10.2) mg/dL Med Orders - Current: Current Medications Acetaminophen (Tylenol) 650 mg PO Q4H PRN PRN Reason: Pain Last Admin: 06/01/17 22:12 Dose: 650 mg Citalopram Hydrobromide (Celexa) 20 mg PO DAILY [facility] Last Admin: 06/02/17 09:39 Dose: 20 mg Famotidine (Pepcid) 20 mg PO BEDTIME [facility] Last Admin: 06/02/17 20:02 Dose: 20 mg Furosemide (Lasix) 40 mg PO DAILY [facility] Last Admin: 06/02/17 09:39 Dose: 40 mg Ondansetron HCl (Zofran) 4 mg IV Q4H PRN PRN Reason: Nausea/Vomiting Pantoprazole Sodium (Protonix Iv) 40 mg IVPUSH Q12H [facility] Last Admin: 06/02/17 23:51 Dose: 40 mg Sodium Chloride (Saline Flush) 10 ml FLUSH ASDIRECTED PRN PRN Reason: Keep Vein Open Last Admin: 06/02/17 23:51 Dose: 10 ml Discontinued Medications Sodium Chloride (Normal Saline) 1,000 mls @ 125 mls/hr IV ASDIRECTED [facility] Last Admin: 06/02/17 06:09 Dose: 125 mls/hr Sodium Chloride (Normal Saline) 250 mls @ 100 mls/hr IV ASDIRECTED [facility] Lactated Ringer's (Ringers, Lactated) 1,000 mls @ 125 mls/hr IV ASDIRECTED [facility] Iopamidol (Isovue-370 (76%)) 75 ml IV ONETIME ONE Stop: 06/02/17 10:33 Last Admin: 06/02/17 11:23 Dose: 75 ml Pantoprazole Sodium (Protonix Iv) 40 mg IVPUSH ONETIME ONE Stop: 06/01/17 11:02 Last Admin: 06/01/17 11:02 Dose: 40 mg *Q Meaningful Use (DIS) - VTE *Q VTE Criteria *Q: - Stroke *Q Stroke Criteria *Q: - AMI *Q AMI Criteria *Q:
[2017-06-03] MEDS: Furosemide 40 MG Tab PO SCH (09:01)
[2017-06-03] MEDS: Citalopram 20 MG Tab PO SCH (09:01)
[2017-06-03 09:17] VITALS: BP 159/72
[2017-06-03] MEDS ORDERED: FLU Vacc QS 2017-18 (36mos UP)/PF 60 MCG/0.5 ML Syringe IM ONE ×2 (10:32→10:45)
== END 2017-06-03 11:23 | disposition home or self-care (01) | DRG 378 ==
LOC: FB.ED 09:56 → FB.MS 11:39
PROVIDERS: ADMIT Family Medicine; ATTEND Family Medicine
PROC: 30233N1 Transfusion of Nonautologous Red Blood Cells into Peripheral Vein, Percutaneous Approach (ICD-10-PCS; principal; 2017-06-01)
DX: K57.91 Diverticulosis of intestine, part unspecified, without perforation or abscess with bleeding (principal); D68.32 Hemorrhagic disorder due to extrinsic circulating anticoagulants; I42.8 Other cardiomyopathies; K92.1 Melena; T45.515A Adverse effect of anticoagulants, initial encounter; Y92.009 Unspecified place in unspecified non-institutional (private) residence as the place of occurrence of the external cause; D64.9 Anemia, unspecified; Z95.2 Presence of prosthetic heart valve; Z79.01 Long term (current) use of anticoagulants; I48.0 Paroxysmal atrial fibrillation; I10 Essential (primary) hypertension; R55 Syncope and collapse; R42 Dizziness and giddiness; K44.9 Diaphragmatic hernia without obstruction or gangrene; R10.32 Left lower quadrant pain; M54.9 Dorsalgia, unspecified; G89.29 Other chronic pain; F32.9 Major depressive disorder, single episode, unspecified; E78.00 Pure hypercholesterolemia, unspecified; Z88.8 Allergy status to other drugs, medicaments and biological substances; Z96.659 Presence of unspecified artificial knee joint; Z23 Encounter for immunization
CPT/HCPCS: 36415; 80048; 81001; 82272; 83880; 85025; 85610; 86850; 86900; 86901; 86920; 86922; 96361; 96374; 99284; 99285; C9113; J7040; J7050; 36430; 74177; 90471; 90686; A9270-GY; J7030; P9016; Q9967

== ENCOUNTER 2018-02-12 06:37 | Day surgery (SDC) | payer MEDICARE, BC ==
[2018-02-12] MEDS ORDERED: Lactated Ringers 1,000 ML IV SCH (06:45)
[2018-02-12] MEDS ORDERED: Lidocaine 0.5% 50 ML SDV INJECT ONE (08:00)
[2018-02-12] MEDS ORDERED: fentaNYL 100 MCG/2 ML SDV IV ONE (08:00)
[2018-02-12] MEDS ORDERED: ceFAZolin 1 GM in Sodium Chloride 0.9% 50 ML IV ONE (08:00)
[2018-02-12] MEDS ORDERED: Propofol 200 MG/20 ML SDV IV ONE (08:00)
[2018-02-12] MEDS ORDERED: Midazolam 1 MG/ML 2 ML SDV IV ONE (08:00)
[2018-02-12] MEDS ORDERED: ceFAZolin 1 GM Vial IVPUSH ONE (08:00)
[2018-02-12 12:03] VITALS: BP 134/69
--- NOTE | 2018-02-14 07:50 | OR ---
DATE OF OPERATION: 02/12/2018 SURGEON: Jhon Ivy DO PREOPERATIVE DIAGNOSIS: Right 4th digit trigger finger. POSTOPERATIVE DIAGNOSIS: Right 4th digit trigger finger. PROCEDURE PERFORMED: Right 4th digit trigger finger release. ANESTHESIA: Saleem block plus conscious sedation. FLUIDS: Lactated Ringer's solution. ESTIMATED BLOOD LOSS: Less than 5 mL. COMPLICATIONS: None. SPECIMENS: None. DISCHARGE DISPOSITION: Stable to PACU. HISTORY/INDICATIONS FOR THE PROCEDURE: The patient was seen preoperatively in the clinic. She had had recent triggering of her finger. She had had previous nonoperative treatment, which did not work, including chiropractic manipulation. Risks and benefits of the procedure were explained to the patient and her family, and informed consent was obtained. DETAILS OF THE PROCEDURE: The patient was seen preoperatively by myself and the anesthesia staff in the preoperative holding area, where the operative site was marked. She was brought to the operative suite by the anesthesia staff, where Saleem block was administered, plus conscious sedation. The right upper extremity was then prepped and draped in a sterile manner. Time out was called, identifying the correct patient, the correct procedure, the correct site, and that antibiotics had been given within appropriate period of time. The incision was made over the A1 nela and carried down through the fat. Self-retaining retractor was used. I used bipolar electrocautery to control some small bleeders. The A1 nela was identified. I used a Ragnell for retraction and then cut through the A1 nela. We then used a Ragnell to exteriorize the tendons, and we were able to do this without difficulty. There was mucoid degeneration of the flexor tendons, but they maintained their strength. The wound was then copiously irrigated with saline and then closed with 3-0 Vicryl in a horizontal mattress method. A sterile dressing was placed, then the patient had the Saleem block let down per anesthesia protocol, and then the patient was transferred from the hospital bed and taken to the PACU in stable condition. /[id number] BS/MODL
== END 2018-02-12 09:55 | disposition home or self-care (01) ==
LOC: FB.SDS 06:37
PROVIDERS: ATTEND Orthopaedic Surgery
DX: M65.341 Trigger finger, right ring finger (principal); I11.0 Hypertensive heart disease with heart failure; I50.42 Chronic combined systolic (congestive) and diastolic (congestive) heart failure; I42.8 Other cardiomyopathies; J44.9 Chronic obstructive pulmonary disease, unspecified; I48.0 Paroxysmal atrial fibrillation; E07.9 Disorder of thyroid, unspecified; D50.9 Iron deficiency anemia, unspecified; F32.0 Major depressive disorder, single episode, mild; Z79.899 Other long term (current) drug therapy; Z88.8 Allergy status to other drugs, medicaments and biological substances
CPT/HCPCS: 01810-QZ; J0690; J2250; J2704; J3010; J7120

== ENCOUNTER 2018-04-25 06:59 | Emergency (ER) | payer MEDICARE, BC ==
--- NOTE | 2018-04-25 07:42 | EDM.PDOC ---
ED HPI GENERAL MEDICAL PROBLEM - General Stated Complaint: CHEST PAIN Time Seen by Provider: 04/25/18 07:06 Source of Information: Reports: Patient, Family History Limitations: Reports: No Limitations - History of Present Illness INITIAL COMMENTS - FREE TEXT/NARRATIVE: 77 y.o.w.f with a S/p Hiatal hernia repair and partial resection of the colon, came to the ed with her family due to left ant chest wall pain for the past few days which is getting slowly worse. Pt is rating a as 2/10. pain is present only when she takes a deep Breath or is palpating her left ant chest wall. Pt feels the pain is superficial, not deep inside the chest. No N/V/D, no diaphoresis, no Dizziness. Pt's daughter said her BP goes up and down, which is the reason why she does not take her BP meds on a regular basis. BP 188/87 pulse 64 RR 18 Pulse ox 100% on RA pt appears to be comfortable. 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: Acetaminophen (Pt was asked not to take ASA) Lower Chest Pain Score (Numeric/FACES): 2 - Related Data Allergies Allergy/AdvReac Type Severity Reaction Status Date / Time rivaroxaban [From Xarelto] Allergy Cannot Verified 04/25/18 07:21 Remember warfarin sodium Allergy Weakness Verified 04/25/18 07:21 [From Coumadin] Home Meds: Home Meds Alendronate Sodium [Fosamax] 70 mg PO WEEKLY 05/24/15 [History] Carvedilol 12.5 mg PO BID 06/01/17 [History] Citalopram [Citalopram HBr] 20 mg PO DAILY 06/01/17 [History] Furosemide 40 mg PO DAILY 06/01/17 [History] Lisinopril 7.5 mg PO DAILY 06/01/17 [History] Potassium Chloride 10 meq PO BID 06/01/17 [History] Ranitidine [Zantac] 150 mg PO BID 06/01/17 [History] atorvaSTATin [Lipitor] 40 mg PO DAILY 06/01/17 [History] Acetaminophen [Tylenol] 650 mg PO DAILY 06/03/17 [History] Calcium Carbonate [Calcium] 600 mg PO DAILY 06/03/17 [History] Pregabalin [Lyrica] 75 mg PO BID 02/11/18 [History] Multivitamin [Multivitamins] 1 tab PO DAILY 04/25/18 [History] Past Medical History HEENT History: Reports: Cataract Cardiovascular History: Reports: High Cholesterol, Hypertension, Other (See Below) Other Cardiovascular History: cardiomegaly Gastrointestinal History: Reports: Cholelithiasis, Hiatal Hernia Other Gastrointestinal History: LEFT HERNIA SURGERY; HX RECTAL PROLAPSE Genitourinary History: Reports: None 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 NEEDS DIRECTION MUCH AT TIME OF ADMISSION Endocrine/Metabolic History: Reports: None Hematologic History: Reports: Blood Transfusion(s) Other Hematologic History: GI BLEED WHILE ON BLOOD THINNER Immunologic History: Reports: None Oncologic (Cancer) History: Reports: None Dermatologic History: Reports: None - Infectious Disease History Infectious Disease History: Reports: Chicken Pox, Measles - Past Surgical History Head Surgeries/Procedures: Reports: None HEENT Surgical History: Reports: Cataract Surgery, Tonsillectomy Cardiovascular Surgical History: Reports: None GI Surgical History: Reports: Appendectomy, Cholecystectomy, Colon, Colonoscopy , Hernia, Inguinal, Jillian Fundoplication Other GI Surgeries/Procedures: PARTIAL COLECTOMY Female Surgical History: Reports: Hysterectomy Endocrine Surgical History: Reports: Other (See Below) Other Endocrine Surgeries/Procedures: Pt is to going to have her thyroid checked this week, as there were some abnormalities Musculoskeletal Surgical History: Reports: Knee Replacement Other Musculoskeletal Surgeries/Procedures:: PAST FX LEFT FEMUR ET LEFT WRIST , ALSO HAS SCAR FROM LOW BACK SURGERY, BUT COULD NOT REMEMBER ONE. FOOT SURGERY PER HX Social & Family History - Family History Family Medical History: Noncontributory - Caffeine Use Caffeine Use: Reports: None ED ROS GENERAL - Review of Systems Review Of Systems: See Below Constitutional: Reports: No Symptoms HEENT: Reports: No Symptoms Respiratory: Reports: Pleuritic Chest Pain (pt with deep insp and palpation of left ant chest wall) Cardiovascular: Reports: Chest Pain Endocrine: Reports: No Symptoms GI/Abdominal: Reports: No Symptoms : Reports: No Symptoms Musculoskeletal: Reports: No Symptoms Skin: Reports: No Symptoms Neurological: Reports: No Symptoms Psychiatric: Reports: No Symptoms Hematologic/Lymphatic: Reports: No Symptoms Immunologic: Reports: No Symptoms ED EXAM, GENERAL - Physical Exam Exam: See Below Exam Limited By: No Limitations General Appearance: Alert, WD/WN, Mild Distress Eye Exam: Bilateral Eye: Normal Inspection Ears: Normal External Exam Ear Exam: Bilateral Ear: Auricle Normal Nose: Normal Inspection Throat/Mouth: Normal Inspection, Normal Lips, Normal Gums, Normal Oropharynx, Normal Voice, No Airway Compromise Head: Atraumatic, Normocephalic Neck: Normal Inspection, Supple, Non-Tender, Full Range of Motion Respiratory/Chest: No Respiratory Distress, Lungs Clear, Normal Breath Sounds Cardiovascular: Normal Peripheral Pulses, Regular Rate, Rhythm, No Edema, No Gallop, No JVD, No Murmur, No Rub Peripheral Pulses: 1+: Radial (L) GI/Abdominal: Normal Bowel Sounds (Female) Exam: Deferred Rectal (Female) Exam: Deferred Back Exam: Normal Inspection, Full Range of Motion Extremities: Normal Inspection, Normal Range of Motion, Non-Tender, No Pedal Edema, Normal Capillary Refill Neurological: Alert, Oriented, CN II-XII Intact, Normal Cognition, Normal Gait, No Motor/Sensory Deficits Psychiatric: Normal Affect, Normal Mood Skin Exam: Warm, Dry, Intact, Normal Color, No Rash Lymphatic: No Adenopathy EKG INTERPRETATION EKG Date: 04/25/18 Time: 07:15 Rhythm: NSR Rate (Beats/Min): [address]: Normal P-Wave: Present QRS: Normal ST-T: Normal QT: Normal Comparison: NA - No Prior EKG Course - Vital Signs Text/Narrative:: 77 y.o.w.f with a S/p Hiatal hernia repair and partial resection of the colon, came to the ed with her family due to left ant chest wall pain for the past few days which is getting slowly worse. Pt is rating a as 2/10. pain is present only when she takes a deep Breath or is palpating her left ant chest wall. Pt feels the pain is superficial, not deep inside the chest. No N/V/D, no diaphoresis, no Dizziness. Pt's daughter said her BP goes up and down, which is the reason why she does not take her BP meds on a regular basis. BP 188/87 pulse 64 RR 18 Pulse ox 100% on RA pt appears to be comfortable. Pt not allowed to take ASA PE: WNWD thin 77 y.o.w.f with mild C/P Labil Hypertention as per daughter Imaging: CXR: Elevated right diaphram Labs: Troponin 0.127 WBC 4.7 HGB 11.3 HKT 38.7 Pls 160 INR 1.1 Impression: NSTEMI, HTN S/O Hiatal hernia, S/P Colon surgery Tx: ASA, Lisinopril, Protonix 8.32 am consultation: Dr. Barba, Hospitalist, [facility]: ASA 162 mg only!, No hepain drip!, accepted the pt for transfer and further care. Reexam: BP improved to 176/76, her cp got worse, locating it now substernal, Tx: SL nitro, no effect. Nitrodrip and Heparin drip (no bolus) were ordered, Dr. Barba was updated. 9.46 am Reexam: Pt was doing better, BP 154/78 SSCP Pain 1-2/10, not radiating to shoulders, no SOB, No Diaphoresis [facility] called back, Bed now available Plan: Transfer to [facility], higher level of care Last Recorded V/S: Last Vital Signs Temp 36.6 C 04/25/18 06:59 Pulse 64 04/25/18 06:59 Resp 18 04/25/18 06:59 BP 142/75 H 04/25/18 09:35 Pulse Ox 98 04/25/18 06:59 - Orders/Labs/Meds Labs: Laboratory Tests 04/25/18 04/25/18 04/25/18 Range/Units 07:50 07:50 07:50 WBC 4.7 (4.5-12.0) X10-3/uL RBC 3.70 (3.23-5.20) x10(6)uL Hgb 11.8 (11.5-15.5) g/dL Hct 35.6 (30.0-51.3) % MCV 96.3 H (80-96) fL MCH 31.8 (27.7-33.6) pg MCHC 33.0 (32.2-35.4) g/dL RDW 14.5 (11.5-15.5) % Plt Count 160 (125-369) X10(3)uL MPV 7.9 (7.4-10.4) fL Neut % (Auto) 64.6 (46-82) % Lymph % (Auto) 23.6 (13-37) % Archuleta % (Auto) 10.2 (4-12) % Eos % (Auto) 1 (1.0-5.0) % Baso % (Auto) 0 (0-2) % Neut # (Auto) 3.0 (1.6-8.3) # Lymph # (Auto) 1.1 (0.6-5.0) # Archuleta # (Auto) 0.5 (0.0-1.3) # Eos # (Auto) 0.1 (0.0-0.8) # Baso # (Auto) 0.0 (0.0-0.2) # PT 10.7 (8.7-11.1) INR 1.10 (0.89-1.13) APTT (24.4-33.2) SECONDS D-Dimer, Quantitative 0.60 H (0.0-0.59) mg/LFEU Sodium (135-145) mmol/L Potassium (3.5-5.3) mmol/L Chloride (100-110) mmol/L Carbon Dioxide (21-32) mmol/L BUN (7-18) mg/dL Creatinine (0.55-1.02) mg/dL Est Cr Clr Drug Dosing Estimated GFR (MDRD) (>60) BUN/Creatinine Ratio (9-20) Glucose (80-116) mg/dL Calcium (8.6-10.2) mg/dL Troponin I (<0.017-0.056) ng/mL 04/25/18 04/25/18 04/25/18 Range/Units 07:50 07:50 07:50 WBC (4.5-12.0) X10-3/uL RBC (3.23-5.20) x10(6)uL Hgb (11.5-15.5) g/dL Hct (30.0-51.3) % MCV (80-96) fL MCH (27.7-33.6) pg MCHC (32.2-35.4) g/dL RDW (11.5-15.5) % Plt Count (125-369) X10(3)uL MPV (7.4-10.4) fL Neut % (Auto) (46-82) % Lymph % (Auto) (13-37) % Archuleta % (Auto) (4-12) % Eos % (Auto) (1.0-5.0) % Baso % (Auto) (0-2) % Neut # (Auto) (1.6-8.3) # Lymph # (Auto) (0.6-5.0) # Archuleta # (Auto) (0.0-1.3) # Eos # (Auto) (0.0-0.8) # Baso # (Auto) (0.0-0.2) # PT (8.7-11.1) INR (0.89-1.13) APTT 25.2 (24.4-33.2) SECONDS D-Dimer, Quantitative (0.0-0.59) mg/LFEU Sodium 136 (135-145) mmol/L Potassium 4.4 (3.5-5.3) mmol/L Chloride 105 (100-110) mmol/L Carbon Dioxide 26 (21-32) mmol/L BUN 18 (7-18) mg/dL Creatinine 0.8 (0.55-1.02) mg/dL Est Cr Clr Drug Dosing TNP Estimated GFR (MDRD) > 60 (>60) BUN/Creatinine Ratio 22.5 H (9-20) Glucose 88 (80-116) mg/dL Calcium 8.8 (8.6-10.2) mg/dL Troponin I 0.127 H* (<0.017-0.056) ng/mL Meds: Medications Discontinued Medications Generic Name Dose Route Start Last Admin Trade Name Freq PRN Reason Stop Dose Admin Aspirin 162 mg 04/25/18 08:38 04/25/18 08:50 Halfprin PO 04/25/18 08:39 162 mg ONETIME ONE Administration Nitroglycerin/Dextrose 25 mg in 250 mls @ 3 mls/hr 04/25/18 09:15 04/25/18 10 :02 Nitroglycerin 25 Mg/D5w 250 Ml IV 10 mcg/min TITRATE DONAVAN 6 mls/hr Titration Protocol 5 MCG/MIN Heparin Sodium/Sodium Chloride 25,000 units in 500 mls @ 13.063 mls/hr 09:30 04/25/18 09:47 Heparin 25,000 Units In 1/2 Ns 500 Ml IV 12 units/kg/hr TITRATE DONAVAN 13.063 mls/hr Administration Protocol 12 UNITS/KG/HR Sodium Chloride 250 mls @ 30 mls/hr 04/25/18 09:45 04/25/18 09:35 Normal Saline IV 30 mls/hr ASDIRECTED DONAVAN Administration Lisinopril 10 mg 04/25/18 08:40 04/25/18 08:50 Prinivil PO 04/25/18 08:41 10 mg ONETIME STA Administration Nitroglycerin 0.4 mg 04/25/18 09:20 04/25/18 09:20 Nitrostat SL 04/25/18 09:21 0.4 mg ONETIME ONE Administration Pantoprazole Sodium 40 mg 04/25/18 09:39 04/25/18 09:57 Protonix Iv IVPUSH 04/25/18 09:40 40 mg ONETIME ONE Administration Sodium Chloride 10 ml 04/25/18 08:45 04/25/18 10:00 Saline Flush FLUSH 10 ml ASDIRECTED PRN Administration Keep Vein Open Departure - Departure Time of Disposition: 09:00 Disposition: DC/Tfer to Acute Hospital 02 Reason for Transfer *Q: Other (no nurse care manager) Condition: Fair Clinical Impression: Non-STEMI (non-ST elevated myocardial infarction) Referrals: Silvio Lopez MD [Primary Care Provider] - Forms: ED Department Discharge
[2018-04-25] MEDS ORDERED: Aspirin 81 MG Tab.EC PO ONE (08:38)
[2018-04-25] MEDS ORDERED: Lisinopril 10 MG Tab PO STA (08:40)
[2018-04-25] MEDS: Sodium Chloride 0.9% 10 ML Syringe FLUSH PRN ×2 (08:45→10:00)
[2018-04-25] MEDS ORDERED: Nitroglycerin/D5W 25 MG/250 ML BOTTLE IV SCH (09:15)
[2018-04-25] MEDS ORDERED: Nitroglycerin 0.4 MG Tab.SL SL ONE (09:20)
[2018-04-25] MEDS ORDERED: Heparin Sodium/0.45% NaCl 25,000 UNITS/500 ML BAG IV SCH (09:30)
[2018-04-25 09:35] VITALS: BP 142/75
[2018-04-25] MEDS ORDERED: Pantoprazole 40 MG Vial IVPUSH ONE (09:39)
[2018-04-25] MEDS ORDERED: Sodium Chloride 0.9% 250 ML IV SCH (09:45)
[2018-04-25] MEDS ORDERED: Heparin Sodium 5,000 Units/ML Vial IV ONE (09:45)
--- NOTE | 2018-04-25 11:52 | CR ---
INDICATION: Chest pain. CHEST: A portable AP upright view of the chest was obtained, 04/25/2018, and compared with chest CT of 10/10/2017. The heart appears slightly enlarged. The aorta is calcified in the arch area. Overlying EKG leads are noted. An active infiltrate or effusion was not identified. A mild dextroconvex scoliosis of the upper thoracic spine is noted. The trachea is slightly deviated to the right near the thoracic inlet, compatible with previously noted thyroid mass extending into the mediastinum from the lower pole of the left lobe. IMPRESSION: 1. No acute process - probable ASHD. 2. 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 MTDD
--- OUTSIDE RECORDS SUMMARY | 2018-04-28 07:05 | XMSREPORT | Summary of Care ---
:1940 Author [facility] Address [address] [place] [address] Phone Care Team Providers Name Role Phone Chad Alvarez MD Primary Care Provider Chad Alvarez MD Attributed Provider Encounter Details Date Type Department Care Team Description 04/25/2018 - Hospital Encounter Provider, Generic Hosp Procedure NSTEMI (non-ST 04/27/2018 CENTER [facility] See, Quique Sofia MD [address] [place], [place] [id number] elevated myocardial [id number] Maribell Barajas MD infarction) [place], [place] [id number] Allergies Active Allergy Reactions Severity Noted Date Comments Warfarin Sodium Other (Specify in Comments) High 09/26/2012 weakness Rivaroxaban Other (Specify in Comments) High 07/31/2017 Started bleeding as of this encounter Medications Prescription Sig. Disp. Refills Start Date End Date Status CALCIUM-VITAMIN Take 1 tablet by Active D-VITAMIN K PO mouth 1 time per day acetaminophen Take 650 mg by Active (TYLENOL) 325 mg mouth 1 time per tablet day furosemide (LASIX) 40 Take 1 tablet (40 90 tablet 3 10/11/2016 Active mg tabletIndications: mg total) by Chronic systolic CHF mouth 1 time per (congestive heart day failure) polyethylene glycol Take 3 225 g 0 09/23/2017 Active (MIRALAX) teaspoonsful (17 powderIndications: g) by mouth 1 Constipation, time a day as unspecified needed for constipation type constipation loperamide (IMODIUM Take 2 tabs after 20 tablet 0 09/25/2017 Active A-D) 2 MG the first loose tabletIndications: stool then 1 tab Diarrhea, unspecified after each loose type stool,but no more than 8 tabs in 24 hrs. atorvaSTATin TAKE 1 TABLET (40 90 tablet 1 11/12/2017 Active (LIPITOR) 40 mg MG) BY MOUTH ONE tabletIndications: TIME PER DAY Angina pectoris, GENERIC LIPITOR crescendo, Acute on chronic combined systolic and diastolic CHF (congestive heart failure) potassium chloride TAKE 1 TABLET (10 180 tablet 3 11/26/2017 Active (K-TAB) 10 mEq CR MEQ) BY MOUTH 2 tabletIndications: TIMES A DAY Hypokalemia alendronate (FOSAMAX) TAKE 1 TABLET BY 12 tablet 3 12/11/2017 Active 70 mg MOUTH 1 TIME A tabletIndications: WEEK. TAKE 1/2 Osteopenia, HOUR BEFORE THE unspecified location FIRST FOOD OF THE DAY. DO NOT LIE DOWN FOR 30 MINUTES AFTER TAKING citalopram (CELEXA) TAKE 1 TABLET (20 90 tablet 3 12/24/2017 Active 20 mg MG) BY MOUTH 1 tabletIndications: TIME PER DAY Moderate episode of recurrent major depressive disorder pregabalin (LYRICA) Take 1 capsule 60 capsule 4 01/02/2018 Active 75 mg (75 mg) by mouth capsuleIndications: 2 times a day Chronic post-operative pain raNITIdine (ZANTAC) TAKE 1 TABLET 60 tablet 2 02/10/2018 Active 150 mg (150 MG) BY MOUTH tabletIndications: TWICE A DAY Gastroesophageal GENERIC ZANTAC reflux disease without esophagitis Multiple Take 1 tablet by 90 tablet 0 03/05/2018 Active Vitamins-Iron mouth 1 time per (MULTIVITAMIN WITH day IRON) tabletIndications: Anorexia, Normocytic anemia lisinopril (PRINIVIL, Take 1.5 tablets 135 tablet 3 04/01/2018 Active ZESTRIL) 5 mg (7.5 mg) by mouth tabletIndications: 1 time per day Acute combined systolic and diastolic CHF, NYHA class 2, Chronic combined systolic and diastolic CHF (congestive heart failure), Non-ischemic cardiomyopathy carVEDilol (COREG) TAKE 1 TABLET 90 tablet 3 04/09/2018 Active 12.5 mg (12.5 MG) BY tabletIndications: MOUTH TWICE A DAY New onset a-fib, WITH MEALS Non-ischemic GENERIC COREG cardiomyopathy VOLTAREN 1 % APPLY 2 GMS TO 1 Tube 3 09/12/2017 04/27/20 Suspended gelIndications: Hip AFFECTED AREA 18 pain, chronic, left TWICE A DAY as of this encounter Active Problems Problem Noted Date NSTEMI (non-ST elevated myocardial infarction) 04/25/2018 Paroxysmal atrial fibrillation 08/06/2017 Multiple thyroid nodules 06/26/2017 Hiatal hernia 04/23/2017 Atrial fibrillation with tachycardic ventricular rate 01/01/2017 Non-ischemic cardiomyopathy 01/01/2017 Chronic combined systolic and diastolic CHF (congestive heart failure) 2016 Lung nodule 11/10/2016 Overview: RLL NODULE Angina pectoris, crescendo 11/09/2016 Acute combined systolic and diastolic CHF, NYHA class 2 11/09/2016 Elevated troponin 11/09/2016 Scoliosis of lumbar spine 10/05/2014 Spondylolisthesis of lumbar region 10/05/2014 Lumbar stenosis 10/05/2014 Osteopenia 10/05/2014 S/P total knee arthroplasty 08/15/2012 Abdominal pain, generalized 04/11/2010 Rectal prolapse 04/25/2009 Diverticulitis of colon 04/06/2008 Essential hypertension 10/01/2007 Iron deficiency anemia 03/04/2006 Major depressive disorder, single episode, mild 10/11/2005 Bereavement, uncomplicated 10/11/2005 Other and unspecified hyperlipidemia Other and unspecified angina pectoris as of this encounter Resolved Problems Problem Noted Date Resolved Date Arthritis of knee, degenerative 06/02/2012 04/25/2018 Pain in joint 05/09/2011 04/25/2018 Screening for other and unspecified endocrine, nutritional, 11/14/20102017 metabolic, and immunity disorders Dizziness and giddiness 09/20/2010 04/25/2018 Diarrhea 09/08/2009 01/01/2017 as of this encounter Immunizations Name Dates Previously Given Next Due FLU VACCINE TRIVALENT SINGLE DOSE(Fluvirin,Afluria) 06/03/2017 FLU VACCINE HIGH DOSE 65YR+(Fluzone) 06/12/2016, 06/16/2015 Pneumococcal Conj PCV13 02/04/2015 Pneumococcal Polysaccharide PPSV23 05/09/2011, 07/21/2007 TDAP 04/16/2012 Zoster Live(Zostavax) 08/06/2012 as of this encounter Social History Tobacco Use Types Packs/Day Years Used Date Former Smoker Cigarettes 0.75 3 12/31/1956 - 01/01/1960 Smokeless Tobacco: Never Used Alcohol Use Drinks/Week oz/Week Comments No 0 Rare/Occasional 0.0 Sex Assigned at Date Recorded Not on file as of this encounter Last Filed Vital Signs Vital Sign Reading Time Taken Blood Pressure 167/76 04/27/2018 11:14 AM CDT Pulse 73 04/27/2018 11:14 AM CDT Temperature 36.7 C (98 F) 04/27/2018 11:14 AM CDT Respiratory Rate 16 04/27/2018 11:14 AM CDT Oxygen Saturation 99% 04/27/2018 11:14 AM CDT Inhaled Oxygen Concentration - - Weight 52.5 kg (115 lb 11.9 oz) 04/27/2018 6:00 AM CDT Height 162.6 cm (5' 4") 04/25/2018 11:00 AM CDT Body Mass Index 19.87 04/27/2018 6:00 AM CDT in this encounter Functional Status Functional Status Response Date of Assessment Is the person deaf or does he/she have serious difficulty No 04/25/2018 hearing? Is this person blind or does he/she have difficulty No 04/25/2018 seeing even when wearing glasses? Do you have difficulty with walking, balance, climbing No 04/25/2018 stairs, or had a fall in the last 3 months? Does the patient have difficulty dressing or bathing? No 04/25/2018 Because of a physical, mental, or emotional condition; No 04/25/2018 does this person have difficulty doing errands alone such as visiting a doctor's office or shopping? Cognitive Status Response Date of Assessment Because of a physical, mental, or emotional condition; No 04/25/2018 does this person have serious difficulty concentrating, remembering, or making decisions? as of this encounter Discharge Summaries Marley Jain MD - 04/27/2018 8:09 AM CDTFormatting of this note may be different from the original. Discharge Summary Patient ID: Natalee Daniel is a 77yr female. Attending Physician: Maribell Gutierrez MD Discharging Provider Specialty: Adult Hospitalist Admit Date: 04/25/2018 Discharge Date: 04/27/2018 Primary Care Physician: Chad Alvarez MD Code Status: Full Code Primary Discharge Diagnoses NSTEMI (non-ST elevated myocardial infarction) Principal Problem: NSTEMI (non-ST elevated myocardial infarction) Active Problems: Major depressive disorder, single episode, mild Essential hypertension Elevated troponin Atrial fibrillation with tachycardic ventricular rate Resolved Problems: * No resolved hospital problems. * Secondary Discharge Diagnoses Patient Active Problem List Diagnosis Other and unspecified hyperlipidemia Major depressive disorder, single episode, mild Bereavement, uncomplicated Iron deficiency anemia Other and unspecified angina pectoris Essential hypertension Diverticulitis of colon Rectal prolapse Abdominal pain, generalized S/P total knee arthroplasty Scoliosis of lumbar spine Spondylolisthesis of lumbar region Lumbar stenosis Osteopenia Angina pectoris, crescendo Acute combined systolic and diastolic CHF, NYHA class 2 Elevated troponin Lung nodule Atrial fibrillation with tachycardic ventricular rate Non-ischemic cardiomyopathy Chronic combined systolic and diastolic CHF (congestive heart failure) Hiatal hernia Multiple thyroid nodules Paroxysmal atrial fibrillation NSTEMI (non-ST elevated myocardial infarction) Hospital Course Patient is a 77 year old female with hx HTN, HLD, paroxysmal afib not on coagulation due to GI bleed, and hiatal hernia repair who was admitted for substernal chest pain. The pain was worsened with palpation and relieved by nitroglycerin. She was found to have troponin 0.127, which trended down. EKG unchanged from previous. D-dimer was 0.6. Patient had previous angiogram in November 2016 with 40% RCA stenosis and otherwise normal findings. Cardiology was consulted. Echo showed EF 55% with no regional wall abnormalities. 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 Lexiscan stress test was normal. Patient is asymptomatic, no ongoing chest pain. Discharge instructions: -lipitor 40mg -coreg 12.5mg -lisinopril 7.5mg -ranitidine 150mg bid -Resume home lasix 40mg once a day with K-tab 10mEq bid -Follow-up with PCP Procedures Performed and Findings * No surgery found * Discharge Exam Vital Signs: Temp: 97 F (36.1 C) | BP: 141/92 | Pulse: 70 | Resp: 16 | Pain Ratin (out of 10) | Weight: 53 kg (116 lb 13.5 oz) | O2 Device: Room Air | SpO2: 97 % Intake and Output: 04/25 0700 - 04/26 0659 In: 443 [Oral:240] Out: 400 [Urine:400] Physical Exam Constitutional: She is oriented to person, place, and time. She appears well- developed and well-nourished. No distress. HENT: Head: Normocephalic and atraumatic. Eyes: No scleral icterus. Neck: Normal range of motion. Neck supple. Cardiovascular: Normal rate, regular rhythm and normal heart sounds. Pulmonary/Chest: Breath sounds normal. She has no wheezes. She has no rales. No tenderness of the chest wall to palpation Abdominal: Soft. There is no tenderness. Musculoskeletal: She exhibits no edema. Lymphadenopathy: She has no cervical adenopathy. Neurological: She is alert and oriented to person, place, and time. Skin: Skin is warm and dry. Psychiatric: She has a normal mood and affect. Consults CARDIOLOGY CONSULT Discharge Disposition Discharge Medications Medication List ASK your doctor about these medications acetaminophen 325 mg tablet Commonly known as: TYLENOL alendronate 70 mg tablet Commonly known as: FOSAMAX TAKE 1 TABLET BY MOUTH 1 TIME A WEEK. TAKE 1/2 HOUR BEFORE THE FIRST FOOD OF THE DAY. DO NOT LIE DOWN FOR 30 MINUTES AFTER TAKING atorvaSTATin 40 mg tablet Commonly known as: LIPITOR TAKE 1 TABLET (40 MG) BY MOUTH ONE TIME PER DAY GENERIC LIPITOR CALCIUM-VITAMIN D-VITAMIN K PO carVEDilol 12.5 mg tablet Commonly known as: COREG TAKE 1 TABLET (12.5 MG) BY MOUTH TWICE A DAY WITH MEALS GENERIC COREG citalopram 20 mg tablet Commonly known as: celeXA TAKE 1 TABLET (20 MG) BY MOUTH 1 TIME PER DAY furosemide 40 mg tablet Commonly known as: LASIX Take 1 tablet (40 mg total) by mouth 1 time per day lisinopril 5 mg tablet Commonly known as: PRINIVIL, ZESTRIL Take 1.5 tablets (7.5 mg) by mouth 1 time per day loperamide 2 MG tablet Commonly known as: IMODIUM A-D Take 2 tabs after the first loose stool then 1 tab after each loose stool,but no more than 8 tabs in24 hrs. multivitamin with iron tablet Take 1 tablet by mouth 1 time per day polyethylene glycol powder Commonly known as: MIRALAX Take 3 teaspoonsful (17 g) by mouth 1 time a day as needed for constipation potassium chloride 10 mEq CR tablet Commonly known as: K-TAB TAKE 1 TABLET (10 MEQ) BY MOUTH 2 TIMES A DAY pregabalin 75 mg capsule Commonly known as: LYRICA Take 1 capsule (75 mg) by mouth 2 times a day raNITIdine 150 mg tablet Commonly known as: ZANTAC TAKE 1 TABLET (150 MG) BY MOUTH TWICE A DAY GENERIC ZANTAC VOLTAREN 1% gel Generic drug: diclofenac APPLY 2 GMS TO AFFECTED AREA TWICE A DAY Discharge Instructions See AVS for discharge instructions. Tests Pending at Discharge Follow-Up Scheduled See AVS for Follow up appointments made Medical Decision Making The time spent on discharge coordination was 20 minutes. Associated attestation - Maribell Gutierrez MD - 04/27/2018 3:33 PM CDTI discussed the patient with the resident and personally interviewed and examined the patient. The primary discharge diagnosis is possible NSTEMI, Type II. Cardiac troponins were elevated, but no definitive cause was identified. Chest pain resolved and all further testing, including chest CTA and Cardiolyte scan were normal, except for an incidentally discovered pulmonary AVM that was felt not to bethe cause of a NSTEMI. We think she is low risk. She can resume previous medications and previous activity. Otherwise, I agree with the patient's diagnosis and management. The time spent on discharge coordination was 40 minutes. in this encounter Progress Notes Marley Jain MD - 04/26/2018 10:23 AM CDTFormatting of this note may be different from the original. DAILY PROGRESS NOTE Natalee Daniel is a 77yr old female admitted on 04/25/2018 11:32 AM. Impression / Plan NSTEMI -CTA today to rule out PE -Carvedilol -atorvastatin -Cardiology following Paroxysmal afib -cervedilol HTN -lisinopril 7.5 HLD -atorvastatin Code: Full Diet: Regular DVT Prophylaxis: lovenox Disposition: TBD Interval History HPI No acute overnight events. Patient is asymptomatic this morning, no chest pain at rest or with palpation. Will obtain CTA today to rule out PE. Review of Systems Review of Systems Constitutional: Negative for chills and fever. HENT: Negative for sore throat. Eyes: Negative for visual disturbance. Respiratory: Negative for shortness of breath. Negative for cough. Cardiovascular: Negative for chest pain. Negative for palpitations and leg swelling. Gastrointestinal: Negative for abdominal pain, constipation and diarrhea. Endocrine: Negative for polyuria. Genitourinary: Negative for dysuria. Skin: Negative for pallor. Neurological: Negative for headaches. Psychiatric/Behavioral: Negative for confusion. Physical Exam Vital Signs: Temp: 97 F (36.1 C) | BP: 141/92 | Pulse: 70 | Resp: 16 | Pain Ratin (out of 10) | Weight: 53 kg (116 lb 13.5 oz) | O2 Device: Room Air | SpO2: 97 % Maximum Temperatures (last 24 hours) Temperature Maximum Max Temp 97.9 F (36.6 C) Intake and Output: 04/25 0700 - 04/26 0659 In: 443 [Oral:240] Out: 400 [Urine:400] Physical Exam Constitutional: She is oriented to person, place, and time. She appears well- developedand well-nourished. No distress. HENT: Head: Normocephalicand atraumatic. Eyes: No scleral icterus. Neck: Normal range of motion. Neck supple. Cardiovascular: Normal rate, regular rhythmand normal heart sounds. Pulmonary/Chest: Breath sounds normal. She has no wheezes. She has no rales. No tenderness of the chest wall to palpation Abdominal: Soft. There is no tenderness. Musculoskeletal: She exhibits no edema. Lymphadenopathy: She has no cervical adenopathy. Neurological: She is alertand oriented to person, place, and time. Skin: Skin is warmand dry. Psychiatric: She has a normal mood and affect. Labs Labs (Last day) 04/25/18 2228 - 04/25/18 1505 CARDIAC MARKERS 04/25/18 2228 04/25/18 1505 CARDIAC MARKERS Troponin I 0.000-0.028 (ng/mL) 0.039 0.046 04/26/18 0628 - 04/26/18 0628 CBC 04/26/18 0628 CBC WBC 4.0-11.0 (K/uL) 5.0 RBC 3.80-5.30 (M/uL) 3.72 Hemoglobin 11.5-15.8 (g/dL) 11.6 Hematocrit 35.0-45.0 (%) 35.6 MCV 80.0-98.0 (fL) 95.7 MCH 25.5-34.0 (pg) 31.2 MCHC 31.5-36.5 (g/dL) 32.6 RDW-CV 11.5-15.5 (%) 14.1 RDW-SD 35.5-50.0 (fl) 49.9 Platelet Count 140-400 (K/uL) 157 MPV 8.5-12.0 (fL) 10.2 04/26/18627 - 04/26/18627 CHEMISTRY 04/26/18627 CHEMISTRY Glucose 70-100 (mg/dL) 89 Sodium 135-145 (meq/L) 139 Potassium 3.5-5.3 (meq/L) 4.0 Chloride 99-110 (meq/L) 108 CO2 20-29 (meq/L) 20 Anion Gap with K 6-20 (meq/L) 15 BUN 6-22 (mg/dL) 16 Creatinine 0.60-1.10 (mg/dL) 0.71 BUN/Creatinine Ratio 10.0-25.0 22.5 Calcium 8.5-10.5 (mg/dL) 9.3 Corrected Calcium 8.5-10.5 (mg/dL) 9.5 Phosphorus 2.5-4.5 (mg/dL) 3.8 Albumin 3.5-5.0 (g/dL) 3.8 eGFR >=60 (mL/min/1.73m2) >90 eGFR Non- >=60 (mL/min/1.73m2) 79 04/26/18 0628 - 04/26/18627 DIABETIC STUDIES 04/26/18627 DIABETIC STUDIES Hgb A1C <5.7 (%) 5.2 Estimated Average Glucose (mg/dL) 103 04/25/18 1647 - 04/25/18 1647 ECG/EKG 04/25/181646 ECG/EKG EKG WAVEFORM Normal sinus rhythm Intraventricular Conduction Delay Cannot rule out Anterior infarct , age undetermined Abnormal ECG Ventricular Rate: 66 BPM Atrial Rate: 66 BPM P-R Interval: 134 ms QRS Duration: 122 ms Q-T Interval: 424 ms QTc Calculation(Bazett): 445 ms Calculated P [place]: 88 degrees Calculated R [place]: -5 degrees Calculated T [place]: 75 degrees 04/26/18 0628 - 04/25/18 1518 GENERAL COAGULATION 04/26/18 0628 04/25/18 2228 04/25/18 1518 GENERAL COAGULATION APTT 24-35 (secs) 91 123 33 04/26/18 0628 - 04/26/18 0628 LIPID 04/26/18 0628 LIPID Cholesterol 100-200 (mg/dL) 111 HDL 40-80 (mg/dL) 54 LDL 0-129 (mg/dL) 43 Triglyceride 50-150 (mg/dL) 71 04/26/18 0628 - 04/26/18 0628 OTHER 04/26/18 0628 OTHER Age (Years) 77 Medical Decision making MDM Reviewed: previous chart, nursing note and vitals Reviewed previous: labs Associated attestation - Maribell Gutierrez MD - 04/26/2018 4:54 PM CDTI discussed the patient with the resident and personally interviewed and examined the patient. The patient apparently described her chest pain as pleuritic to cardiology, and they think the cause may be pneumonia. Her description of her presenting pain to me is not pleuritic, but rather a steady and severe retrosternal discomfort. I don't find other evidence of pneumonia. We will get a chest CTA today to exclude pneumonia/PE. If no cause of her chest pain is evident on chest CTA, and we don't have agood explanation for her NSTEMI, we will talk to cardiology about pursuing a non-invasive MPI study.Otherwise, I agree with the resident's diagnosis and management. in this encounter Plan of Treatment Date Type Specialty Care Team Description 06/27/2018 Appointment Radiology 06/27/2018 Office Visit Endocrinology Devonte Rajput MD [address] [place] [address] [phone] Name Priority Associated Diagnoses Order Schedule COMPLETE BLOOD COUNT WITHOUT Routine Early AM draw for labs DIFFERENTIAL until discontinued starting 04/26/2018, 2 completed RENAL FUNCTION PANEL Routine Early AM draw for labs until discontinued starting 04/26/2018, 2 completed Health Maintenance Due Date Last Done Comments Zoster Vaccine (2 of 3 - Mixed 10/06/2012 08/06/2012 Series (ZVL first) - RZV,Shingrix) Influenza Vaccine (#1) 2018 06/03/2017, 06/12/2016, 06/16/2015 Lipid Screening 04/26/2019 04/26/2018, 06/01/2016, 04/16/2012 Colonoscopy 11/15/2020 11/16/2015 (Previously completed), 10/03/2007 (Previously completed) Diabetes Screening 04/26/2021 04/26/2018, 04/26/2018, 03/05/2018, Additional history exists Tetanus Vaccine 04/16/2022 04/16/2012 DEXA/Heel Scan 12/08/2029 12/08/2014, 12/08/2014 (Previously completed), 11/17/2010 (Previously completed) Pneumococcal 65yr+ Low/Med Risk Completed 02/04/2015, 05/09/2011, 07/21/2007 as of this encounter Implants Implanted Type [employer] Device Expiration Model / Identifier Date Serial / Lot Cmnt Simplex P W Tobramyacin N [id number] Bx10/Ea - Sn/A Ortho Right: RYAN 12/15/2013 [id number] / Implanted: Qty: 1 on 07/17/2012 by Lucas Sánchez MD Other KNEE N/A / [id number] Knee Tib Base Zm Sz 2 Rt N 6307 Ea - Sn/A Total Jt Right: FOREST 06/16/2021 [id number] / Implanted: Qty: 1 on 07/17/2012 by Lucas Sánchez MD Knee KNEE N/A / [id number] Knee Flex Sys Ptla Zm Sz2 8mm N 5420-008-02 Ea - Sn/A Total Jt Right: FOREST 06/16/[id number] / Implanted: Qty: 1 on 07/17/2012 by Lucas Sánchez MD Knee KNEE N/A / [id number] Knee Articu Ulzm Rt Sz1-2 13mm N [id number] Ea - Sn/A Total Jt Right: FOREST 04/16/[id number] / Implanted: Qty: 1 on 07/17/2012 by Lucas Sánchez MD Knee KNEE N/A / [id number] Knee Flex Sys Transplanter Orchid Zm Rt Sz2 N 5414-015-02 Ea - Sn/A Total Jt Right: FOREST 06/16/2022 [id number] / Implanted: Qty: 1 on 07/17/2012 by Lucas Sánchez MD Knee KNEE N/A / [id number] as of this encounter Procedures Procedure Name Priority Date/Time Associated Comments Diagnosis COMPLETE BLOOD COUNT Routine 04/27/2018 4:41 Results for this WITHOUT DIFFERENTIAL AM CDT procedure are in the results section. MAGNESIUM Routine 04/27/2018 4:41 Results for this AM CDT procedure are in the results section. RENAL FUNCTION PANEL Routine 04/27/2018 4:41 Results for this AM CDT procedure are in the results section. LIPID PANEL Routine 04/26/2018 6:28 Results for this AM CDT procedure are in the results section. PTT Timed Routine 04/26/2018 6:28 Results for this AM CDT procedure are in the results section. COMPLETE BLOOD COUNT Routine 04/26/2018 6:28 Results for this WITHOUT DIFFERENTIAL AM CDT procedure are in the results section. GLYCATED HEMOGLOBIN Routine 04/26/2018 6:28 Results for this AM CDT procedure are in the results section. RENAL FUNCTION PANEL Routine 04/26/2018 6:28 Results for this AM CDT procedure are in the results section. PTT Timed Routine 04/25/2018 10:28 Results for this PM CDT procedure are in the results section. TROPONIN I Timed Routine 04/25/2018 10:28 Results for this PM CDT procedure are in the results section. PTT VI 04/25/2018 3:18 Results for this PM CDT procedure are in the results section. COLLECT AND HOLD Routine 04/25/2018 3:13 Results for this LAVENDER (EDTA) TOP PM CDT procedure are in TUBE the results section. TROPONIN I Timed Routine 04/25/2018 3:05 Results for this PM CDT procedure are in the results section. COLLECT AND HOLD Routine 04/25/2018 12:00 Results for this LAVENDER (EDTA) TOP AM CDT procedure are in TUBE the results section. in this encounter Results NM NUCLEAR STRESS TEST (04/27/2018 11:08 AM) Specimen Performing Laboratory LAB Narrative Name: FREDY NATALEE Vladimir : 1940/77Y/F NM NUCLEAR STRESS TEST 04/27/2018 11:08:00 INDICATION:Chest pain, normal ekg EXAM: REQUESTING PROVIDER:Maribell Gutierrez M.D. DOSAGE OF TECHNETIUM AT REST: 11 mCi. DOSAGE OF TECHNETIUM AT STRESS:27.8 mCi. REASON FOR STUDY: A 77-year-old female with mild troponin elevation and history of nonischemic cardiomyopathy. Rule out ischemia. STRESS EKG PORTION: The patient underwent Lexiscan Cardiolite protocol. There were no EKG changes suggestive of ischemia. Overall, the stress EKG was nondiagnostic for ischemia since this was pharmacologic stress test. TECHNIQUE: Gated and nongated perfusion images were obtained at rest and following vasodilator stress with using technetium as the radioactive tracer. Images were reformatted into standard views. FINDINGS: On the nonattenuation corrected images, there is a mild reduction in uptake in the inferior wall at stress. There is no improvement on resting images. With attenuation correction, this defect resolves and therefore likely represents diaphragmatic attenuation artifact. With attenuation correction, there is essentially homogeneous uptake of radioactive tracer in all myocardial segments at stress and rest. There are no significant fixed or reversible perfusion defects. Gated perfusion images show normal wall thickening of all myocardial segments. Resting ejection fraction 71%. Resting end-diastolic volume 66 mL. Resting end systolic volume 19 mL. Stress ejection fraction 65%. Stress end-diastolic volume 77 mL.Stress end-systolic volume 27 mL. TID 1.00 is within normal limits. IMPRESSION: 1.Normal study. 2.Normal stress and rest perfusion images. No evidence of ischemia or infarction. 3.Normal left ventricular cavity size, ejection fraction, and wall motion. Rachell Rivera M.D., Cardiology/[id number] Job ID/Trans ID:[id number] Doc ID:[id number] [employer] W[facility] cc: CSN: [id number] Order Phys:MARLEY Vern JAIN MR#/FAIZAN#: [id number] Order ID: [id number] Admit Date:04/25/2018 [facility] RADIOLOGY REPORT [facility] MAGNESIUM (04/27/2018 4:41 AM) Component Value Ref Range Magnesium 2.0 1.8 - 2.4 mg/dL Specimen Performing Laboratory Blood [address] [address] RENAL FUNCTION PANEL (04/27/2018 4:41 AM) Component Value Ref Range Glucose 96 70 - 100 mg/dL BUN 17 6 - 22 mg/dL Creatinine 0.81 0.60 - 1.10 mg/dL BUN/Creatinine Ratio 21.0 10.0 - 25.0 Sodium 141 135 - 145 meq/L Potassium 4.1 3.5 - 5.3 meq/L Chloride 106 99 - 110 meq/L CO2 27 20 - 29 meq/L Anion Gap with K 12 6 - 20 meq/L Calcium 9.0 8.5 - 10.5 mg/dL Phosphorus 3.6 2.5 - 4.5 mg/dL Albumin 3.8 3.5 - 5.0 g/dL Corrected Calcium 9.2 8.5 - 10.5 mg/dL Age 77 Years eGFR Non- 68 >=60 mL/min/1.73m2 eGFR 83 >=60 mL/min/1.73m2 Specimen Performing Laboratory Blood [address] [address] COMPLETE BLOOD COUNT WITHOUT DIFFERENTIAL (04/27/2018 4:41 AM) Component Value Ref Range WBC 5.3 4.0 - 11.0 K/uL RBC 3.58 (L) 3.80 - 5.30 M/uL Hemoglobin 11.4 (L) 11.5 - 15.8 g/dL Hematocrit 34.4 (L) 35.0 - 45.0 % MCV 96.1 80.0 - 98.0 fL MCH 31.8 25.5 - 34.0 pg MCHC 33.1 31.5 - 36.5 g/dL RDW-CV 14.2 11.5 - 15.5 % RDW-SD 50.2 (H) 35.5 - 50.0 fl Platelet Count 155 140 - 400 K/uL MPV 10.2 8.5 - 12.0 fL Specimen Performing Laboratory Blood [address] [address] CTA CHEST (04/26/2018 11:36 AM) Specimen Performing Laboratory PS360 Narrative Patient Name: NATALEE DANIEL Date of :1940 Procedure: CTA CHEST Date of Service: 04/26/2018 EXAM: CTA CHEST INDICATION: Female,77 years patient, pleuritic chest pain, r/o PE COMPARISON(S): CT chest without contrast, 04/09/2017, CT chest without contrast, 10/10/2017 TECHNIQUE:The examination was performed with the rapid intravenous administration of 85 ml of Omnipaque 350 contrast material.Post-processing of the angiographic images was performed with multiplanar reformation reconstruction and MIPs. 3-D reconstructions images were performed at independent workstation. FINDINGS: Pulmonary arteries: Normal enhancement of the main pulmonary artery and right and left pulmonary arteries. There is a arteriovenous shunt visible in the medial left upper lung (images 25 - 27 suggestive of pulmonary arteriovenous malformation. This appears to have a single feeding artery arising from the posterior medial left pulmonary artery. Normal enhancement of the bilateral peripheral pulmonary arteries.There is no demonstrated pulmonary embolism. Aorta: Normal thoracic aorta and visualized great vessels. There is no demonstrated aortic dissection. Lungs / Pleura: The lungs are well expanded. Normal pulmonary parenchyma. Reticular markings are noted throughout. Normal pleura. No pneumothorax. The airways are normal. Heart / Pericardium: The heart is moderately enlarged.. There is no ventricular septal deviation. There is no pericardial effusion. There is moderate coronary artery calcification. Mediastinum / Sharlene: Normal mediastinum. Normal sharlene regions. Thoracic inlet: Normal. Upper abdomen: Postcholecystectomy changes with mild intrahepatic ductal dilatation. Partially visible 2.3 cm left upper pole renal cyst.. Musculoskeletal/vertebra/chest wall: Normal osseous structures. There is no acute fracture.No acute abnormality. IMPRESSION: 1. No pulmonary embolism. 2. 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 Finalized by: Marianna Cortes MD on 04/26/2018 11:52 AM Patient/Procedure Information: [facility] MRN/FAIZAN: [id number] Order Number: [id number] Accession Number: [id number] Ordering Provider: USMAN MURPHY Authorizing Provider: MARIBELL GUTIERREZ Procedure Note Interface, Radiantres - 04/26/2018 11:54 AM CDT Patient Name: NATALEE DANIEL Date of : 1940 Procedure: CTA CHEST Date of Service: 04/26/2018 EXAM: CTA CHEST INDICATION: Female, 77 years patient, pleuritic chest pain, r/o PE COMPARISON(S): CT chest without contrast, 04/09/2017, CT chest without contrast, 10/10/2017 TECHNIQUE: The examination was performed with the rapid intravenous administration of 85 ml of Omnipaque 350 contrast material. Post-processing of the angiographic images was performed with multiplanar reformation reconstruction and MIPs. 3-D reconstructions images were performed at independent workstation. FINDINGS: Pulmonary arteries: Normal enhancement of the main pulmonary artery and right and left pulmonary arteries. There is a arteriovenous shunt visible in the medial left upper lung (images 25 - 27 suggestive of pulmonary arteriovenous malformation. This appears to have a single feeding artery arising from the posterior medial left pulmonary artery. Normal enhancement of the bilateral peripheral pulmonary arteries. There is no demonstrated pulmonary embolism. Aorta: Normal thoracic aorta and visualized great vessels. There is no demonstrated aortic dissection. Lungs / Pleura: The lungs are well expanded. Normal pulmonary parenchyma. Reticular markings are noted throughout. Normal pleura. No pneumothorax. The airways are normal. Heart / Pericardium: The heart is moderately enlarged.. There is no ventricular septal deviation. There is no pericardial effusion. There is moderate coronary artery calcification. Mediastinum / Sharlene: Normal mediastinum. Normal sharlene regions. Thoracic inlet: Normal. Upper abdomen: Postcholecystectomy changes with mild intrahepatic ductal dilatation. Partially visible 2.3 cm left upper pole renal cyst.. Musculoskeletal/vertebra/chest wall: Normal osseous structures. There is no acute fracture. No acute abnormality. IMPRESSION: 1. No pulmonary embolism. 2. 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 Critical Document Only message has been documented to Usman Murphy MD in the [employer] Critical Result system on 04/26/2018 11:49 AM, Message ID [id number]. Finalized by: Marianna Cortes MD on 04/26/2018 11:52 AM Patient/Procedure Information: [facility] MRN/FAIZAN: [id number] Order Number: [id number] Accession Number: [id number] Ordering Provider: USMAN MURPHY Authorizing Provider: MARIBELL GUTIERREZ XRAY CHEST PA AND LATERAL - (04/26/2018 9:47 AM) Specimen Performing Laboratory PS360 Narrative Patient Name: NATALEE DANIEL Date of :1940 Procedure: XRAY CHEST PA AND LATERAL Date of Service: 04/26/2018 EXAM: XRAY CHEST PA AND LATERAL INDICATION: Female,77 years patient, chest pain COMPARISON(S): Chest x-ray 04/25/2018 TECHNIQUE: PA and Lateral views FINDINGS: .There are overlying EKG leads.. Lungs are hyperexpanded. The lungs are clear. Prominent interstitial lung markings are noted. There is elevation right hemidiaphragm. There is no pneumothorax on either side. Both costophrenic angles are sharp. Normal size heart. Normal mediastinum and sharlene.. Normal visualized pulmonary arteries. Normal visualized aortic arch and descending thoracic aorta. There are diffuse degenerative changes of the visualized thoracic spine. Normal visualized ribs, clavicles, and shoulders. There are surgical clips in the visualized left upper abdomen. IMPRESSION: 1. Hyperexpanded lungs. No acute pulmonary pathology. Finalized by: Marianna Cortes MD on 04/26/2018 10:28 AM Patient/Procedure Information: [facility] MRN/FAIZAN: [id number] Order Number: [id number] Accession Number: [id number] Ordering Provider: MARIBELL GUTIERREZ Authorizing Provider: MARIBELL GUTIERREZ Procedure Note Interface, Radiantres - 04/26/2018 10:33 AM CDT Patient Name: NATALEE DANIEL Date of : 1940 Procedure: XRAY CHEST PA AND LATERAL Date of Service: 04/26/2018 EXAM: XRAY CHEST PA AND LATERAL INDICATION: Female, 77 years patient, chest pain COMPARISON(S): Chest x-ray 04/25/2018 TECHNIQUE: PA and Lateral views FINDINGS: .There are overlying EKG leads.. Lungs are hyperexpanded. The lungs are clear. Prominent interstitial lung markings are noted. There is elevation right hemidiaphragm. There is no pneumothorax on either side. Both costophrenic angles are sharp. Normal size heart. Normal mediastinum and sharlene.. Normal visualized pulmonary arteries. Normal visualized aortic arch and descending thoracic aorta. There are diffuse degenerative changes of the visualized thoracic spine. Normal visualized ribs, clavicles, and shoulders. There are surgical clips in the visualized left upper abdomen. IMPRESSION: 1. Hyperexpanded lungs. No acute pulmonary pathology. Finalized by: Marianna Cortes MD on 04/26/2018 10:28 AM Patient/Procedure Information: [facility] MRN/FAIZAN: [id number] Order Number: [id number] Accession Number: [id number] Ordering Provider: MARIBELL GUTIERREZ Authorizing Provider: MARIBELL GUTIERREZ PTT (04/26/2018 6:28 AM) Component Value Ref Range APTT 91 (H) 24 - 35 secs Specimen Performing Laboratory Blood [address] [place] [address] RENAL FUNCTION PANEL (04/26/2018 6:28 AM) Component Value Ref Range Glucose 89 70 - 100 mg/dL BUN 16 6 - 22 mg/dL Creatinine 0.71 0.60 - 1.10 mg/dL BUN/Creatinine Ratio 22.5 10.0 - 25.0 Sodium 139 135 - 145 meq/L Potassium 4.0 3.5 - 5.3 meq/L Chloride 108 99 - 110 meq/L CO2 20 20 - 29 meq/L Anion Gap with K 15 6 - 20 meq/L Calcium 9.3 8.5 - 10.5 mg/dL Phosphorus 3.8 2.5 - 4.5 mg/dL Albumin 3.8 3.5 - 5.0 g/dL Corrected Calcium 9.5 8.5 - 10.5 mg/dL Age 77 Years eGFR Non- 79 >=60 mL/min/1.73m2 eGFR >90 >=60 mL/min/1.73m2 Specimen Performing Laboratory Blood [address] [address] COMPLETE BLOOD COUNT WITHOUT DIFFERENTIAL (04/26/2018 6:28 AM) Component Value Ref Range WBC 5.0 4.0 - 11.0 K/uL RBC 3.72 (L) 3.80 - 5.30 M/uL Hemoglobin 11.6 11.5 - 15.8 g/dL Hematocrit 35.6 35.0 - 45.0 % MCV 95.7 80.0 - 98.0 fL MCH 31.2 25.5 - 34.0 pg MCHC 32.6 31.5 - 36.5 g/dL RDW-CV 14.1 11.5 - 15.5 % RDW-SD 49.9 35.5 - 50.0 fl Platelet Count 157 140 - 400 K/uL MPV 10.2 8.5 - 12.0 fL Specimen Performing Laboratory Blood [address] [address] LIPID PANEL (04/26/2018 6:28 AM) Component Value Ref Range Cholesterol 111 100 - 200 mg/dL Triglyceride 71 50 - 150 mg/dL HDL 54 40 - 80 mg/dL LDL 43 0 - 129 mg/dL Specimen Performing Laboratory Blood [address] [address] GLYCATED HEMOGLOBIN (04/26/2018 6:28 AM) Component Value Ref Range Hgb A1C 5.2 <5.7 % Estimated Average Glucose 103 mg/dL Specimen Performing Laboratory Blood [facility] [address] [place] [address] Narrative ADA Interpretive Guidelines When Using HbA1c for Diagnosis, Prediabetes 5.7 - 6.4% Diabetes >=6.5% When Using HbA1c for Monitoring of Known Diabetics, < 7% is a reasonable goal for many non adults. ADA Standards of Medical Care in Diabetes - 2018 PTT (04/25/2018 10:28 PM) Component Value Ref Range APTT 123 (H) 24 - 35 secs Specimen Performing Laboratory Blood [address] [address] TROPONIN I (04/25/2018 10:28 PM) Component Value Ref Range Troponin I 0.039 (H) 0.000 - 0.028 ng/mL Specimen Performing Laboratory Blood [address] [address] EKG 12 LEAD (04/25/2018 4:47 PM) Component Value Ref Range EKG WAVEFORM Normal sinus rhythm Intraventricular Conduction Delay Cannot rule out Anterior infarct , age undetermined Abnormal ECG Ventricular Rate: 66 BPM Atrial Rate: 66 BPM P-R Interval: 134 ms QRS Duration: 122 ms Q-T Interval: 424 ms QTc Calculation(Bazett): 445 ms Calculated P [place]: 88 degrees Calculated R [place]: -5 degrees Calculated T [place]: 75 degrees ECHO ADULT COMPLETE (04/25/2018 3:29 PM) Narrative Patient: NATALEE DANIEL MR#:[id number] Exam Date:04/25/2018 Transthoracic Echocardiogram [facility] [address] [place], [id number] : 166 /68 mmHg HR:66 bpm : 1940Exam Location:Bedside Height:64.00 "(162.6 cm) Age: 77 year(s)[facility].( 52.62 kg) Gender:FemalePatient Status: InpatienBSA: 1.55 m2 [employer] Supervisor: HENRIQUE ORTIZ Reading Physician: ANDERS POZO MD Ordering Physician:MARIBELL GUTIERREZ MD Procedure Indication(s):NSTEMI Examination:TTE Complete 2D(m-mode) , Complete Spectral Doppler, Color Doppler Conclusions Left Ventricle: Normal left ventricular systolic function. The ejection fraction is visually estimated to be 55 %. Aortic Valve: Mild aortic regurgitation. No aortic stenosis. Mitral Valve: Trivial mitral regurgitation. Right Ventricle: Normal right ventricular systolic function. Pericardium: No significant pericardial effusion. Comparison Study Comparison Date: 08/06/2017 Comparison Study: Transthoracic Echocardiogram Findings Left Ventricle: Normal left ventricular size. Normal left ventricular wall thickness. Normal left ventricular systolic function. The ejection fraction is visually estimated to be 55 %. There are no left ventricular regional wall motion abnormalities. Grade 1 left ventricular diastolic dysfunction. Left Atrium: Dilated left atrium. Aortic Valve: The aortic valve is tricuspid. Mild aortic cuspal thickening. Mild aortic regurgitation. No aortic stenosis. Aorta: The sinus of valsalva is normal in size measuring 32.0 mm. The ascending aorta is normal in size measuring 30.0 mm. The aortic arch is normal in size. Mitral Valve: Mild mitral leaflet thickening. Restricted mobility of the posterior mitral leaflet. Trivial mitral regurgitation. No mitral stenosis. IAS: No gross evidence of shunt flow seen; however the possibility of a PFO cannot be completely ruled out. Right Ventricle: Small right ventricle. Normal right ventricular systolic function. Normal right ventricular wall thickness. Pulmonary Artery: The tricuspid jet envelope definition is inadequate for estimation of RV systolic pressure. Pulmonary Vein: Normal pulmonary venous flow. Right Atrium: Dilated right atrium. Tricuspid Valve: Normal tricuspid valve structure. Trivial tricuspid regurgitation. Pulmonic Valve: Normal pulmonary valve structure. Trivial pulmonary regurgitation. No pulmonary stenosis. IVC: Normal IVC size with normal respirophasic changes. Pericardium: No significant pericardial effusion. No pleural effusion. Measurements Left Ventricle Aortic Valve LabelValueNormal Value LabelValueNormal Value LVDd, 2D47.2 mmObstructive Index0.64 LVDs, 2D34.1 mm(Vmax) IVSd, 2D10 mmObstruction Index0.82 LVPWd, 2D 7.9 mm (VTI) FS, 2D27.75 %CAMMIE(VTI) 2.8 cm-sq LVEF, 2D54 % LVOT Vmax84 cm/s Left Atrium AV [id number] cm/s LabelValueNormal Value LVOTd21 mm LADs Long.47 mmLVOT VTI 23.1 cm Aorta LVOT PGmax 3 mmHg LabelValueNormal Value AV Vmean 83 cm/s Ao [id number] mmAV VTI 28.1 cm Ao Asc30 mmAV PGmax 7 mmHg Ao Sinus, 2D32 mmAV PGmean3 mmHgAVA (Vmax) 2.2 cm-sq [place] AR [id number] cm/s LabelValueNormal Value AR [place] 4 m/s-sq PVein S 65 cm/Cal PHT 324 ms PVein D 26 cm/Warren Vmax, Caliper 131 cm/s S/D Ratio 2.5 Mitral Valve Heart Rate LabelValue Normal Value LabelValueNormal Value MV E Vmax47 cm/s Heart Rate66 bpm MV A Vmax92 cm/s MV E/A 0.51 MV E/E' [id number] MV E/E' septal 17.2 MV E' septal 0 cm/s MV PHT 0.12 s MVA PHT1.8 cm-sq MV E' lateral0 cm/s (No Signature Object) Procedure Note Interface, Inc Results No Pull Forward - 04/25/2018 4:42 PM CDT Patient: NATALEE DANIEL MR#: [id number] Exam Date: 04/25/2018 Transthoracic Echocardiogram [facility] [address] [place] [address] BP: 166/68 mmHg HR: 66 bpm : 1940 Exam Location: Bedside Height: 64.00 "(162.6 cm) Age: 77 year(s) Patient Room: [facility] Weight: 116 lbs.(52.62 kg) Gender: Female Patient Status: Inpatien BSA: 1.55 m2 [employer] Supervisor: HENRIQUE ORTIZ Reading Physician: ANDERS POZO MD Ordering Physician: MARIBELL GUTIERREZ MD Procedure Indication(s): NSTEMI Examination: TTE Complete 2D(m-mode), Complete Spectral Doppler, Color Doppler Conclusions Left Ventricle: Normal left ventricular systolic function. The ejection fraction is visually estimated to be 55 %. Aortic Valve: Mild aortic regurgitation. No aortic stenosis. Mitral Valve: Trivial mitral regurgitation. Right Ventricle: Normal right ventricular systolic function. Pericardium: No significant pericardial effusion. Comparison Study Comparison Date: 08/06/2017 Comparison Study: Transthoracic Echocardiogram Findings Left Ventricle: Normal left ventricular size. Normal left ventricular wall thickness. Normal left ventricular systolic function. The ejection fraction is visually estimated to be 55 %. There are no left ventricular regional wall motion abnormalities. Grade 1 left ventricular diastolic dysfunction. Left Atrium: Dilated left atrium. Aortic Valve: The aortic valve is tricuspid. Mild aortic cuspal thickening. Mild aortic regurgitation. No aortic stenosis. Aorta: The sinus of valsalva is normal in size measuring 32.0 mm. The ascending aorta is normal in size measuring 30.0 mm. The aortic arch is normal in size. Mitral Valve: Mild mitral leaflet thickening. Restricted mobility of the posterior mitral leaflet. Trivial mitral regurgitation. No mitral stenosis. IAS: No gross evidence of shunt flow seen; however the possibility of a PFO cannot be completely ruled out. Right Ventricle: Small right ventricle. Normal right ventricular systolic function. Normal right ventricular wall thickness. Pulmonary Artery: The tricuspid jet envelope definition is inadequate for estimation of RV systolic pressure. Pulmonary Vein: Normal pulmonary venous flow. Right Atrium: Dilated right atrium. Tricuspid Valve: Normal tricuspid valve structure. Trivial tricuspid regurgitation. Pulmonic Valve: Normal pulmonary valve structure. Trivial pulmonary regurgitation. No pulmonary stenosis. IVC: Normal IVC size with normal respirophasic changes. Pericardium: No significant pericardial effusion. No pleural effusion. Measurements Left Ventricle Aortic Valve Label Value Normal Value Label Value Normal Value LVDd, 2D 47.2 mm Obstructive Index 0.64 LVDs, 2D 34.1 mm (Vmax) IVSd, 2D 10 mm Obstruction Index 0.82 LVPWd, 2D 7.9 mm (VTI) FS, 2D 27.75 % CAMMIE (VTI) 2.8 cm-sq LVEF, 2D 54 % LVOT Vmax 84 cm/s Left Atrium AV Vmax 131 cm/s Label Value Normal Value LVOTd 21 mm LADs Long. 47 mm LVOT VTI 23.1 cm Aorta LVOT PGmax 3 mmHg Label Value Normal Value AV Vmean 83 cm/s Ao Sinotubular 23.9 mm AV VTI 28.1 cm Ao Asc 30 mm AV PGmax 7 mmHg Ao Sinus, 2D 32 mm AV PGmean 3 mmHgAVA (Vmax) 2.2 cm-sq [place] AR Vmax 442 cm/s Label Value Normal Value AR [place] 4 m/s-sq PVein S 65 cm/s AR PHT 324 ms PVein D 26 cm/s AV Vmax, Caliper 131 cm/s S/D Ratio 2.5 Mitral Valve Heart Rate Label Value Normal Value Label Value Normal Value MV E Vmax 47 cm/s Heart Rate 66 bpm MV A Vmax 92 cm/s MV E/A 0.51 MV E/E' lateral 15 MV E/E' septal 17.2 MV E' septal 0 cm/s MV PHT 0.12 s MVA PHT 1.8 cm-sq MV E' lateral 0 cm/s (No Signature Object) PTT (04/25/2018 3:18 PM) Component Value Ref Range APTT 33 24 - 35 secs Specimen Performing Laboratory Blood [place] [address] [place] [address] COLLECT AND HOLD LAVENDER (EDTA) TOP TUBE (04/25/2018 3:13 PM) Component Value Ref Range Collect and Hold Specimen Status Comment: RECEIVED Specimen Performing Laboratory Blood [place] [address] [place] [address] TROPONIN I (04/25/2018 3:05 PM) Component Value Ref Range Troponin I 0.046 (H) 0.000 - 0.028 ng/mL Specimen Performing Laboratory Blood [address] [place] [address] COLLECT AND HOLD LAVENDER (EDTA) TOP TUBE (04/25/2018) Component Value Ref Range Collect and Hold Specimen Status Comment: RECEIVED Specimen Performing Laboratory Blood [address] [place] [address] in this encounter Visit Diagnoses Diagnosis Non-ST elevation MD (NSTEMI) - Primary Acute myocardial infarction, unspecified site, episode of care unspecified in this encounter Administered Medications Medication Order MAR Action Action Date Dose Rate Site atorvaSTATin (LIPITOR) tablet 40 mg Given 04/26/2018 07:55 CDT 40 mg 40 mg, Oral, Daily, First dose on 04/26/18 at 0900, Until Discontinued Given 04/27/2018 11:46 CDT 40 mg carVEDilol (COREG) tablet 12.5 mg Given 04/26/2018 07:56 CDT 12.5 mg 12.5 mg, Oral, Two times a day with meals, First dose on Sat04/25/18 at 1730, Until Discontinued, Take with food. Given 04/26/2018 16:46 CDT 12.5 mg Given 04/27/2018 11:46 CDT 12.5 mg citalopram (celeXA) tablet 20 mg Given 04/26/2018 07:54 CDT 20 mg 20 mg, Oral, Daily, First dose on 04/26/18 at 0900, Until Discontinued Given 04/27/2018 11:51 CDT 20 mg enoxaparin (LOVENOX) subcutaneous injection Given 04/26/2018 20:56 CDT 40 mg solution 40 mg 40 mg, Subcutaneous, Bedtime, First dose on 04/26/18 at 2100, Until Discontinued, To avoid the loss of drug when using the 30 mg and 40 mg prefilled syringes, do not expel the air bubble from the syringe before the injection. Administration should be alternated between the left and right anterolateral and left and right posterolateral abdominal wall. The whole length of the needle should be introduced into a skin fold held between the thumb and forefinger; the skin fold should be held throughout the injection. To minimize bruising, do not rub the injection site after completion of the injection. labetalol (NORMODYNE;TRANDATE) IV solution 10 mg Given 04/25/2018 13:06 CDT 10 mg 10 mg, IV, Every four hours prn, Starting Sat04/25/18 at 1233, Until Discontinued, SBP > 160, HR > 120, 20 mL Given 04/25/2018 18:05 CDT 10 mg lisinopril (PRINIVIL, ZESTRIL) tablet 7.5 mg Given 04/26/2018 07:55 CDT 7.5 mg 7.5 mg, Oral, DAILY, First dose on Sat04/26/18 at 0900, Until Discontinued, Hold for SBP less than 100 Given 04/27/2018 11:45 CDT 7.5 mg raNITIdine (ZANTAC) tablet 150 mg Given 04/26/2018 07:55 CDT 150 mg 150 mg, Oral, Two times a day, First dose on Sat04/25/18 at 2100, Until Discontinued Given 04/26/2018 20:56 CDT 150 mg Given 04/27/2018 11:46 CDT 150 mg sodium chloride 0.9% flush (adult) 10 mL Given 04/26/2018 20:56 CDT 10 mL 10 mL, IV, Two times a day and prn, First dose on Sat04/25/18 at 2100, Until Discontinued, 10 mL, Flush IV line as scheduled and as often as necessary before and after meds. Given 04/27/2018 11:46 CDT 10 mL sodium chloride 0.9% flush (adult) 10 mL Given 04/27/2018 10:05 CDT 10 mL 10 mL, IV, Two times a day and prn, First dose on Sat04/27/18 at 0930, Until Discontinued, 10 mL, Flush IV line as scheduled and as often as necessary before and after meds. traMADol (ULTRAM) tablet 50 mg Given 04/26/2018 02:30 CDT 50 mg 50 mg, Oral, Every six hours prn, Starting Sat04/25/18 at 1141, Until Discontinued, moderate pain, for pain Scale 4 to 6 or pain not relieved by medications for Pain Scale 1 - 3, Pain stratification is defined as follows for either analog scale (0-10) or critical care pain observation tool (CPOT, 0-8). a. No pain (0) b. Mild pain level (1-3) c. Moderate pain level (4-6) d. Severe pain level (greater than or equal to 7) TEST Medication Order MAR Action Action Date Dose Rate Site 99mTc-Cardiolite 10 Given 04/27/2018 08:10 CDT 11 millicuries millicurie 10 millicurie, IV, Now imaging, 1 dose, Starting Harrison 04/27/18 at 0819, Until Harrison 04/27/18 at 0810 99mTc-Cardiolite 30 Given 04/27/2018 10:05 27.8 millicuries Right Forearm millicurie CDT Top IV 30 millicurie, IV, Now imaging, 1 dose, Starting [place] 04/27/18 at 1015, Until Harrison 04/27/18 at 1005 hEParin (50 units/mL) in D5W New Bag 04/25/2018 15:55 CDT 15 Units/kg/hr 15.8 mL/hr premixed IV solution (STANDARD-weight based) 0-50 Units/kg/hr 52.7 kg (0-52.7 mL/hr), IV, at 0-52.7 mL/hr, Titrate, Starting 04/25/18 at 1605, Until 04/26/18 at 0758, 500 mL, Start initial infusion at 15 units/kg/hr. Notify physician if initial infusion exceeds 1,500 units/hr. Adjust heparin infusion based on sliding scale: aPTT less than 60 sec ------ Give 70 units/kg IV bolus and add 4 units/kg/hr to current rate aPTT 60-69.9 sec Give 35 units/kg IV bolus and add 2 units/kg/hr to current rate aPTT 70-120.9 sec No change (therapeutic) aPTT 121-135.9 sec Subtract 2 units/kg/hr from current rate aPTT 136-149.9 sec --------- Hold heparin for 1 hour and subtract 3 units/kg/hr from current rate aPTT 150 sec or greater - Redraw STAT aPTT and hold heparin. Draw STAT aPTT hourly until less than 150 sec, then restart heparin infusion at 3 units/kg/hr less than previous rate. AFTER PROCEDURE: When restarting infusion after it's been held for a procedure, restart infusion at "starting" dose of 15 units/kg/hr and follow titration orders. IF infusion was running at less than 15 units/kg/hr prior to procedure, restart at that rate and follow titration orders. Rate Change 04/25/2018 23:44 CDT 13 Units/kg/hr 13.7 mL/hr iohexol (OMNIPAQUE) 350 mg/mL solution 100 mL Given 04/26/2018 11:37 CDT 85 mL 100 mL, IV, Now imaging, 1 dose, Starting 04/26/18 at 1137, Until 04/26/18 at 1137, 100 mL regadenoson (LEXISCAN) syringe 0.4 mg Given 04/27/2018 10:05 CDT 0.4 mg 0.4 mg, IV, One time, 1 dose, 04/27/18 at 1030, 5 mL, Pre-procedure ([facility]), procedural area to release, Over 10-20 seconds For administration in [facility] in this encounter
== END 2018-04-25 10:15 ==
LOC: FB.ED 06:59
DX: I21.4 Non-ST elevation (NSTEMI) myocardial infarction (principal); I10 Essential (primary) hypertension; E78.00 Pure hypercholesterolemia, unspecified; F32.9 Major depressive disorder, single episode, unspecified; Z79.899 Other long term (current) drug therapy; Z88.8 Allergy status to other drugs, medicaments and biological substances
CPT/HCPCS: 36415; 71045; 80048; 84484; 85025; 85379; 85610; 85730; 93005; 96365; 96368; 96375; 99285; A9270; C9113; J1644; J3490; J7050

== ENCOUNTER 2018-05-04 13:13 | Emergency (ER) | payer MEDICARE, BC ==
--- NOTE | 2018-05-04 13:41 | EDM.PDOC ---
ED HPI GENERAL MEDICAL PROBLEM - General Chief Complaint: General Stated Complaint: DIZZY,CHEST DISCOMFORT Time Seen by Provider: 05/04/18 13:13 Source of Information: Reports: Patient, Family History Limitations: Reports: No Limitations - History of Present Illness INITIAL COMMENTS - FREE TEXT/NARRATIVE: 77 y.o.w.f s/p NSTEMI 1 week ago, was seen at [facility] and d/c's last Saturday. She underwent an echocardiogram, CT chest which were all neg. Pt came again to [facility] ED because of CP, weakness and being always tired. Her chest pain was the same as with her last admission. Pt is allergic to reg ASA and Coumadin. No N/V/ D or dizziness. No other acute medical issues. BP 158/63 RR 20 Pulse ox 97% on RA pulse 70 Temp 36.7 Onset Date: 05/03/18 Onset Time: 08:00 Duration: Hour(s):, Intermittent Location: Reports: Chest Quality: Reports: Ache Severity: Mild Improves with: Reports: Rest Worsens with: Reports: Movement Context: Reports: Other Associated Symptoms: Reports: Weakness (feel tired) chest Pain Score (Numeric/FACES): 5 - Related Data Allergies Allergy/AdvReac Type Severity Reaction Status Date / Time rivaroxaban [From Xarelto] Allergy Cannot Verified 05/04/18 13:37 Remember warfarin sodium Allergy Weakness Verified 05/04/18 13:37 [From Coumadin] Home Meds: Home Meds Alendronate Sodium [Fosamax] 70 mg PO WEEKLY 05/24/15 [History] Carvedilol 12.5 mg PO BID 06/01/17 [History] Citalopram [Citalopram HBr] 20 mg PO DAILY 06/01/17 [History] Furosemide 40 mg PO DAILY 06/01/17 [History] Lisinopril 7.5 mg PO DAILY 06/01/17 [History] Potassium Chloride 10 meq PO BID 06/01/17 [History] Ranitidine [Zantac] 150 mg PO BID 06/01/17 [History] atorvaSTATin [Lipitor] 40 mg PO DAILY 06/01/17 [History] Acetaminophen [Tylenol] 650 mg PO DAILY 06/03/17 [History] Calcium Carbonate [Calcium] 600 mg PO DAILY 06/03/17 [History] Pregabalin [Lyrica] 75 mg PO BID 02/11/18 [History] Multivitamin [Multivitamins] 1 tab PO DAILY 04/25/18 [History] Past Medical History HEENT History: Reports: Cataract Cardiovascular History: Reports: High Cholesterol, Hypertension, Other (See Below) Other Cardiovascular History: cardiomegaly Gastrointestinal History: Reports: Cholelithiasis, Hiatal Hernia Other Gastrointestinal History: LEFT HERNIA SURGERY; HX RECTAL PROLAPSE Genitourinary History: Reports: None [employer]ST[employer]ING History: Reports: Musculoskeletal History: Reports: Arthritis, Back Pain, Chronic, Fracture, Osteoporosis Other Musculoskeletal History: FX PELVIS, LEFT ARM Neurological History: Reports: None Psychiatric History: Reports: Depression Other Psychiatric History: VAGUE MEMORY. NEEDS DIRECTION MUCH AT TIME OF ADMISSION Endocrine/Metabolic History: Reports: None Other Endocrine/Metabolic History: watching the thyroid due to nodules Hematologic History: Reports: Blood Transfusion(s) Other Hematologic History: GI BLEED WHILE ON BLOOD THINNER Immunologic History: Reports: None Oncologic (Cancer) History: Reports: None Dermatologic History: Reports: None - Infectious Disease History Infectious Disease History: Reports: Chicken Pox, Measles - Past Surgical History Head Surgeries/Procedures: Reports: None HEENT Surgical History: Reports: Cataract Surgery, Tonsillectomy Cardiovascular Surgical History: Reports: None GI Surgical History: Reports: Appendectomy, Cholecystectomy, Colon, Colonoscopy , Hernia, Inguinal, Jillian Fundoplication Other GI Surgeries/Procedures: PARTIAL COLECTOMY Female Surgical History: Reports: Hysterectomy Endocrine Surgical History: Reports: Other (See Below) Other Endocrine Surgeries/Procedures: Pt is to going to have her thyroid checked this week, as there were some abnormalities Musculoskeletal Surgical History: Reports: Knee Replacement Other Musculoskeletal Surgeries/Procedures:: PAST FX LEFT FEMUR ET LEFT WRIST , ALSO HAS SCAR FROM LOW BACK SURGERY, BUT COULD NOT REMEMBER ONE. FOOT SURGERY PER HX Social & Family History - Family History Family Medical History: Noncontributory - Caffeine Use Caffeine Use: Reports: None ED ROS GENERAL - Review of Systems Review Of Systems: See Below Constitutional: Reports: Weakness HEENT: Reports: No Symptoms Respiratory: Reports: No Symptoms Cardiovascular: Reports: Chest Pain Endocrine: Reports: No Symptoms GI/Abdominal: Reports: No Symptoms : Reports: No Symptoms Musculoskeletal: Reports: No Symptoms Skin: Reports: Pallor Neurological: Reports: No Symptoms Psychiatric: Reports: No Symptoms Hematologic/Lymphatic: Reports: No Symptoms Immunologic: Reports: No Symptoms ED EXAM, GENERAL - Physical Exam Exam: See Below Exam Limited By: No Limitations General Appearance: Alert, WD/WN, Mild Distress, Thin Eye Exam: Bilateral Eye: Normal Inspection Ears: Normal External Exam Ear Exam: Bilateral Ear: Auricle Normal Nose: Normal Inspection, Normal Mucosa Throat/Mouth: Normal Inspection, Normal Lips, Normal Oropharynx, Normal Voice, No Airway Compromise Head: Atraumatic, Normocephalic Neck: Normal Inspection, Supple, Non-Tender Respiratory/Chest: No Respiratory Distress, Lungs Clear, Normal Breath Sounds, No Accessory Muscle Use, Chest Non-Tender Cardiovascular: Normal Peripheral Pulses, Regular Rate, Rhythm, No Edema, No Gallop, No JVD, No Murmur, No Rub Peripheral Pulses: 2+: Radial (L) GI/Abdominal: Normal Bowel Sounds, Soft, Non-Tender, No Organomegaly, No Distention, No Abnormal Bruit, No Mass, Pelvis Stable (Female) Exam: Deferred Rectal (Female) Exam: Deferred Back Exam: Normal Inspection, Full Range of Motion Extremities: Normal Inspection, Normal Range of Motion, Non-Tender, No Pedal Edema, Normal Capillary Refill Neurological: Alert, Oriented, CN II-XII Intact, Normal Cognition, Normal Gait, No Motor/Sensory Deficits Psychiatric: Normal Affect, Normal Mood Skin Exam: Warm, Dry, Intact, Pallor Lymphatic: No Adenopathy EKG INTERPRETATION EKG Date: 05/04/18 Time: 13:25 Rhythm: NSR Rate (Beats/Min): 69 [place]: Normal P-Wave: Present QRS: Normal ST-T: Normal QT: Normal Comparison: No Change Course - Vital Signs Text/Narrative:: 77 y.o.w.f s/p NSTEMI 1 week ago, was seen at [facility] for NSTEMI and d/c's last Saturday. She underwent an echocardiogram, CT chest which were all neg. Pt came again to this ED today because of CP, weakness and being always tired. Her chest pain was the same as with her last admission. Pt is allergic to reg ASA and Coumadin. No N/V/D or dizziness. No other acute medical issues. BP 158/63 RR 20 Pulse ox 97% on RA pulse 70 Temp 36.7 PE: Weak appearing 77 y.o.w.f with CP Imaging: Not indicated.\, had CT chest done 2 days ago at [facility]: Nl Labs: K 5.5 Na 132 BUN 22 Cr. 0.9 Troponin 0.105 HGB 11.3, reminder of the CBC was nl INR was 1.13 ECG: NSR no acute ST/T elevations. Impression: NSTEMI (CP. elevated Troponin), HTN, Anemia Tx: encoded ASA, Clonidin 2.39 pm Consultation: Dr. Lenz, Hospitalist, [facility]: Sent pt back to [facility]: (Heparin drip not recommended at this time) additional meds at this point Reexam: Improved. CP 09/18, Vitals, please check the nursing notes Plan: Transfer to [place] per EMS Last Recorded V/S: Last Vital Signs Temp 36.9 C 05/04/18 15:30 Pulse 69 05/04/18 15:30 Resp 19 05/04/18 15:30 BP 178/69 H 05/04/18 15:30 Pulse Ox 99 05/04/18 15:30 - Orders/Labs/Meds Orders: Active Orders 24 hr Category Date Time Status EKG Documentation Completion [RC] ASDIRECTED Care 05/04/18 17:25 Active EKG 12 Lead [EK] Routine Ther 05/04/18 13:20 Ordered Labs: Laboratory Tests 05/04/18 05/04/18 05/04/18 Range/Units 13:45 13:45 13:45 WBC 4.9 (4.5-12.0) X10-3/uL RBC 3.50 (3.23-5.20) x10(6)uL Hgb 11.2 L (11.5-15.5) g/dL Hct 33.6 (30.0-51.3) % MCV 95.9 (80-96) fL MCH 32.1 (27.7-33.6) pg MCHC 33.4 (32.2-35.4) g/dL RDW 14.1 (11.5-15.5) % Plt Count 171 (125-369) X10(3)uL MPV 8.7 (7.4-10.4) fL Neut % (Auto) 65.4 (46-82) % Lymph % (Auto) 23.5 (13-37) % [place] % (Auto) 9.9 (4-12) % Eos % (Auto) 1 (1.0-5.0) % Baso % (Auto) 0 (0-2) % Neut # (Auto) 3.2 (1.6-8.3) # Lymph # (Auto) 1.2 (0.6-5.0) # [place] # (Auto) 0.5 (0.0-1.3) # Eos # (Auto) 0.0 (0.0-0.8) # Baso # (Auto) 0.0 (0.0-0.2) # PT 11.1 (8.7-11.1) INR 1.14 H (0.89-1.13) Sodium 132 L (135-145) mmol/L Potassium 5.5 H D (3.5-5.3) mmol/L Chloride 102 (100-110) mmol/L Carbon Dioxide 25 (21-32) mmol/L BUN 22 H (7-18) mg/dL Creatinine 0.9 (0.55-1.02) mg/dL Est Cr Clr Drug Dosing 43.55 mL/min Estimated GFR (MDRD) > 60 (>60) BUN/Creatinine Ratio 24.4 H (9-20) Glucose 130 H (80-116) mg/dL Calcium 8.5 L (8.6-10.2) mg/dL Creatine Kinase 40 L (60-160) IU/L Troponin I (<0.017-0.056) ng/mL TSH, Ultra Sensitive (0.36-3.74) IU/mL 05/04/18 Range/Units 13:45 WBC (4.5-12.0) X10-3/uL RBC (3.23-5.20) x10(6)uL Hgb (11.5-15.5) g/dL Hct (30.0-51.3) % MCV (80-96) fL MCH (27.7-33.6) pg MCHC (32.2-35.4) g/dL RDW (11.5-15.5) % Plt Count (125-369) X10(3)uL MPV (7.4-10.4) fL Neut % (Auto) (46-82) % Lymph % (Auto) (13-37) % [place] % (Auto) (4-12) % Eos % (Auto) (1.0-5.0) % Baso % (Auto) (0-2) % Neut # (Auto) (1.6-8.3) # Lymph # (Auto) (0.6-5.0) # [place] # (Auto) (0.0-1.3) # Eos # (Auto) (0.0-0.8) # Baso # (Auto) (0.0-0.2) # PT (8.7-11.1) INR (0.89-1.13) Sodium (135-145) mmol/L Potassium (3.5-5.3) mmol/L Chloride (100-110) mmol/L Carbon Dioxide (21-32) mmol/L BUN (7-18) mg/dL Creatinine (0.55-1.02) mg/dL Est Cr Clr Drug Dosing mL/min Estimated GFR (MDRD) (>60) BUN/Creatinine Ratio (9-20) Glucose (80-116) mg/dL Calcium (8.6-10.2) mg/dL Creatine Kinase (60-160) IU/L Troponin I 0.105 H* (<0.017-0.056) ng/mL TSH, Ultra Sensitive 2.04 (0.36-3.74) IU/mL Meds: Medications Discontinued Medications Generic Name Dose Route Start Last Admin Trade Name Freq PRN Reason Stop Dose Admin Aspirin 325 mg 05/04/18 15:04 05/04/18 15:19 Ecotrin PO 05/04/18 15:05 325 mg DAILY STA Administration Clonidine HCl 0.1 mg 05/04/18 15:06 05/04/18 15:18 Catapres PO 05/04/18 15:07 0.1 mg ONETIME ONE Administration Nitroglycerin 1 gm 05/04/18 15:11 05/04/18 15:19 Nitro-Bid 2% TOP 05/04/18 15:12 1 gm ONETIME ONE Administration Departure - Departure Time of Disposition: 15:30 Disposition: DC/Tfer to [facility] Reason for Transfer *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
[2018-05-04] MEDS ORDERED: Aspirin 325 MG Tab.EC PO STA (15:04)
[2018-05-04] MEDS ORDERED: cloNIDine 0.1 MG Tab PO ONE (15:06)
[2018-05-04] MEDS ORDERED: Nitroglycerin 2% Oint 1 GM UD Packet TOP ONE (15:11)
[2018-05-04 16:56] VITALS: BP 178/69
== END 2018-05-04 15:38 | disposition critical access hospital (66) ==
LOC: FB.ED 13:13
DX: I21.4 Non-ST elevation (NSTEMI) myocardial infarction (principal); I10 Essential (primary) hypertension; D64.9 Anemia, unspecified; E78.00 Pure hypercholesterolemia, unspecified; Z88.8 Allergy status to other drugs, medicaments and biological substances; Z79.899 Other long term (current) drug therapy
CPT/HCPCS: 36415; 80048; 82550; 84443; 84484; 85025; 85610; 93005; 99285; A9270-GY

== ENCOUNTER 2018-05-10 12:58 | Emergency (ER) | payer MEDICARE, BC ==
[2018-05-10] MEDS ORDERED: traMADol 50 MG Tab PO ONE (13:21)
--- NOTE | 2018-05-10 13:31 | EDM.PDOC ---
ED HPI GENERAL MEDICAL PROBLEM - General Chief Complaint: Back Pain or Injury Stated Complaint: LT LEG PAIN Time Seen by Provider: 05/10/18 13:05 Source of Information: Reports: Patient, Family History Limitations: Reports: No Limitations - History of Present Illness INITIAL COMMENTS - FREE TEXT/NARRATIVE: Natalee was recently discharged from [facility] yesterday following GI work up for atypical chest pain, studies included EGD which demonstrated "sludge" in the CBD when was irrigated successfully. She was pain free last noc, but awoke with L lower paralumbar pain radiating into the lateral aspect of the L proximal thigh. Pain seems worse with sitting or attempts at standing. There was no reported injury hx, no weakness or numbness of LEs. She took some Tylenol for relief. - Related Data Allergies Allergy/AdvReac Type Severity Reaction Status Date / Time rivaroxaban [From Xarelto] Allergy Cannot Verified 05/04/18 13:37 Remember warfarin sodium Allergy Weakness Verified 05/04/18 13:37 [From Coumadin] Home Meds: Home Meds Alendronate Sodium [Fosamax] 70 mg PO WEEKLY 05/24/15 [History] Carvedilol 12.5 mg PO BID 06/01/17 [History] Citalopram [Citalopram HBr] 20 mg PO DAILY 06/01/17 [History] Furosemide 40 mg PO DAILY 06/01/17 [History] Lisinopril 7.5 mg PO DAILY 06/01/17 [History] Potassium Chloride 10 meq PO BID 06/01/17 [History] Ranitidine [Zantac] 150 mg PO BID 06/01/17 [History] atorvaSTATin [Lipitor] 40 mg PO DAILY 06/01/17 [History] Acetaminophen [Tylenol] 650 mg PO DAILY 06/03/17 [History] Calcium Carbonate [Calcium] 600 mg PO DAILY 06/03/17 [History] Pregabalin [Lyrica] 75 mg PO BID 02/11/18 [History] Multivitamin [Multivitamins] 1 tab PO DAILY 04/25/18 [History] traMADol [Ultram] 50 mg PO Q6H PRN #10 tab 05/10/18 [Rx] Past Medical History HEENT History: Reports: Cataract Cardiovascular History: Reports: High Cholesterol, Hypertension, Other (See Below) Other Cardiovascular History: cardiomegaly Gastrointestinal History: Reports: Cholelithiasis, Hiatal Hernia Other Gastrointestinal History: LEFT HERNIA SURGERY; HX RECTAL PROLAPSE Genitourinary History: Reports: None 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 NEEDS DIRECTION MUCH AT TIME OF ADMISSION Endocrine/Metabolic History: Reports: None Other Endocrine/Metabolic History: watching the thyroid due to nodules Hematologic History: Reports: Blood Transfusion(s) Other Hematologic History: GI BLEED WHILE ON BLOOD THINNER Immunologic History: Reports: None Oncologic (Cancer) History: Reports: None Dermatologic History: Reports: None - Infectious Disease History Infectious Disease History: Reports: Chicken Pox, Measles - Past Surgical History Head Surgeries/Procedures: Reports: None HEENT Surgical History: Reports: Cataract Surgery, Tonsillectomy Cardiovascular Surgical History: Reports: None GI Surgical History: Reports: Appendectomy, Cholecystectomy, Colon, Colonoscopy , Hernia, Inguinal, Jillian Fundoplication Other GI Surgeries/Procedures: PARTIAL COLECTOMY Female Surgical History: Reports: Hysterectomy Endocrine Surgical History: Reports: Other (See Below) Other Endocrine Surgeries/Procedures: Pt is to going to have her thyroid checked this week, as there were some abnormalities Musculoskeletal Surgical History: Reports: Knee Replacement Other Musculoskeletal Surgeries/Procedures:: PAST FX LEFT FEMUR ET LEFT WRIST , ALSO HAS SCAR FROM LOW BACK SURGERY, BUT COULD NOT REMEMBER ONE. FOOT SURGERY PER HX Social & Family History - Family History Family Medical History: Noncontributory - Caffeine Use Caffeine Use: Reports: None ED ROS GENERAL - Review of Systems Review Of Systems: See Below Constitutional: Reports: No Symptoms HEENT: Reports: No Symptoms Respiratory: Reports: No Symptoms Cardiovascular: Reports: No Symptoms Endocrine: Reports: No Symptoms GI/Abdominal: Reports: No Symptoms : Reports: No Symptoms Musculoskeletal: Reports: Back Pain, Leg Pain Skin: Reports: No Symptoms Neurological: Reports: No Symptoms Psychiatric: Reports: No Symptoms Hematologic/Lymphatic: Reports: No Symptoms Immunologic: Reports: No Symptoms ED EXAM,LOWER BACK PAIN/INJURY - Physical Exam Exam: See Below Exam Limited By: No Limitations General Appearance: Alert, WD/WN, No Apparent Distress, Anxious Head: Normocephalic Neck: Normal Inspection, Supple, Non-Tender, Full Range of Motion Respiratory/Chest: Lungs Clear, Normal Breath Sounds, Chest Non-Tender Cardiovascular: Normal Peripheral Pulses, Regular Rate, Rhythm, No Edema, No Murmur GI/Abdominal: Normal Bowel Sounds, Soft, Non-Tender, No Organomegaly, No Distention, No Mass (Female) Exam: Deferred Rectal (Female) Exam: Deferred Back Exam: Normal Inspection, Paraspinal Tenderness (lower left involving sacrospinalis mm, no spasm) Extremities: Normal Inspection, Normal Range of Motion, Non-Tender, Normal Capillary Refill Neurological: Alert, Normal Mood/Affect, Normal Dorsiflexion, CN II-XII Intact, Normal Plantar Flexion, No Motor/Sensory Deficits, Oriented x 3 Psychiatric: Normal Affect, Anxious Skin Exam: Warm, Dry, Intact, Normal Color Lymphatic: No Adenopathy Course - Vital Signs Text/Narrative:: Examination appears consistent with musculotendonous pain, mechanism unknown. I administered a Tramadol 50 mg tab before discharge. - Orders/Labs/Meds Meds: Medications Discontinued Medications Generic Name Dose Route Start Last Admin Trade Name Helen PRN Reason Stop Dose Admin Tramadol HCl 50 mg 05/10/18 13:21 05/10/18 13:25 Ultram PO 05/10/18 13:22 50 mg ONETIME ONE Administration Departure - Departure Time of Disposition: 13:45 Disposition: Home, Self-Care 01 Condition: Fair Clinical Impression: Back pain Qualifiers: Back pain location: low back pain Chronicity: unspecified Back pain laterality : left Sciatica presence: without sciatica Qualified Code(s): M54.5 - Low back pain - Discharge Information *PRESCRIPTION DRUG MONITORING PROGRAM REVIEWED*: Not Applicable *COPY OF PRESCRIPTION DRUG MONITORING REPORT IN PATIENT [facility]: Not Applicable Prescriptions: traMADol [Ultram] 50 mg PO Q6H PRN #10 tab PRN Reason: Breakthrough Pain Instructions: Tramadol tablets, Back Pain, Adult, [id number] Referrals: Chad Alvarez MD [Primary Care Provider] - Forms: ED Department Discharge Additional Instructions: Activity as tolerated. Ice or heat as needed for pain. Tramadol 50mg 1 tablet every 6 hours as needed for pain. Follow up with regular MD as needed at clinic. - Problem List & Annotations (1) Back pain SNOMED Code(s): 609160429 Code(s): M54.9 - DORSALGIA, UNSPECIFIED Status: Acute Current Visit: Yes Annotation/Comment:: I suggested heat, rest, and dispensed Tramadol 50 mg qid prn for pain. Qualifiers: Back pain location: low back pain Chronicity: unspecified Back pain laterality: left Sciatica presence: without sciatica Qualified Code(s): M54.5 - Low back pain - Problem List Review Problem List Initiated/Reviewed/Updated: Yes - Assessment/Plan Plan: Follow up with PCP if needed.
[2018-05-10 15:36] VITALS: BP 121/60
== END 2018-05-10 13:45 | disposition home or self-care (01) ==
LOC: FB.ED 12:58
DX: M54.5 Low back pain (principal); I10 Essential (primary) hypertension; Z88.8 Allergy status to other drugs, medicaments and biological substances; Z79.899 Other long term (current) drug therapy
CPT/HCPCS: 99282; A9270

== ENCOUNTER 2018-05-24 08:50 | Emergency (ER) | payer MEDICARE, BC ==
[2018-05-24] MEDS ORDERED: Ondansetron 4 MG Tab.DIS PO ONE (09:19)
--- NOTE | 2018-05-24 09:25 | EDM.PDOC ---
ED HPI GENERAL MEDICAL PROBLEM - General Chief Complaint: General Stated Complaint: NAUSEA Time Seen by Provider: 05/24/18 09:20 Source of Information: Reports: Patient, Family History Limitations: Reports: No Limitations - History of Present Illness INITIAL COMMENTS - FREE TEXT/NARRATIVE: Complains of N/V x 4 days. Denies pain. Patient had a biliary duct obstruction and underwent sphincterotomy at [facility]. She also had a Non-STEMI during that hospitalization. Duration: Day(s): (4) - Related Data Allergies Allergy/AdvReac Type Severity Reaction Status Date / Time rivaroxaban [From Xarelto] Allergy Other Verified 05/24/18 09:30 warfarin sodium Allergy Weakness Verified 05/10/18 14:58 [From Coumadin] Home Meds: Home Meds Alendronate Sodium [Fosamax] 70 mg PO WEEKLY 05/24/15 [History] Carvedilol 12.5 mg PO BID 06/01/17 [History] Citalopram [Citalopram HBr] 20 mg PO DAILY 06/01/17 [History] Furosemide 40 mg PO DAILY 06/01/17 [History] Lisinopril 7.5 mg PO DAILY 06/01/17 [History] Potassium Chloride 10 meq PO BID 06/01/17 [History] Ranitidine [Zantac] 150 mg PO BID 06/01/17 [History] atorvaSTATin [Lipitor] 40 mg PO DAILY 06/01/17 [History] Acetaminophen [Tylenol] 650 mg PO DAILY 06/03/17 [History] Calcium Carbonate [Calcium] 600 mg PO DAILY 06/03/17 [History] Pregabalin [Lyrica] 75 mg PO BID 02/11/18 [History] Multivitamin [Multivitamins] 1 tab PO DAILY 04/25/18 [History] traMADol [Ultram] 50 mg PO Q6H PRN #10 tab 05/10/18 [Rx] Past Medical History HEENT History: Reports: Cataract Cardiovascular History: Reports: CAD, High Cholesterol, Hypertension, [place], Other (See Below) Other Cardiovascular History: cardiomegaly Gastrointestinal History: Reports: Cholelithiasis, Hiatal Hernia Other Gastrointestinal History: LEFT HERNIA SURGERY; HX RECTAL PROLAPSE Genitourinary History: Reports: None 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 NEEDS DIRECTION MUCH AT TIME OF ADMISSION Endocrine/Metabolic History: Reports: None Other Endocrine/Metabolic History: watching the thyroid due to nodules Hematologic History: Reports: Blood Transfusion(s) Other Hematologic History: GI BLEED WHILE ON BLOOD THINNER Immunologic History: Reports: None Oncologic (Cancer) History: Reports: None Dermatologic History: Reports: None - Infectious Disease History Infectious Disease History: Reports: Chicken Pox, Measles - Past Surgical History Head Surgeries/Procedures: Reports: None HEENT Surgical History: Reports: Cataract Surgery, Tonsillectomy Cardiovascular Surgical History: Reports: None GI Surgical History: Reports: Appendectomy, Cholecystectomy, Colon, Colonoscopy , Hernia, Inguinal, Jillian Fundoplication Other GI Surgeries/Procedures: PARTIAL COLECTOMY Female Surgical History: Reports: Hysterectomy Endocrine Surgical History: Reports: Other (See Below) Other Endocrine Surgeries/Procedures: Pt is to going to have her thyroid checked this week, as there were some abnormalities Musculoskeletal Surgical History: Reports: Knee Replacement Other Musculoskeletal Surgeries/Procedures:: PAST FX LEFT FEMUR ET LEFT WRIST , ALSO HAS SCAR FROM LOW BACK SURGERY, BUT COULD NOT REMEMBER ONE. FOOT SURGERY PER HX Social & Family History - Family History Family Medical History: Noncontributory - Tobacco Use Smoking Status *Q: Never Smoker - Caffeine Use Caffeine Use: Reports: None - Alcohol Use Alcohol Use History: No ED ROS GENERAL - Review of Systems Review Of Systems: See Below Constitutional: Reports: No Symptoms HEENT: Reports: No Symptoms Respiratory: Reports: No Symptoms Cardiovascular: Reports: No Symptoms Endocrine: Reports: No Symptoms GI/Abdominal: Reports: Nausea, Vomiting. Denies: Abdominal Pain : Reports: No Symptoms Musculoskeletal: Reports: No Symptoms Skin: Reports: No Symptoms Neurological: Reports: No Symptoms Psychiatric: Reports: No Symptoms Hematologic/Lymphatic: Reports: No Symptoms Immunologic: Reports: No Symptoms ED EXAM, GENERAL - Physical Exam Exam: See Below Exam Limited By: No Limitations General Appearance: Alert, WD/WN, No Apparent Distress Nose: Normal Inspection Throat/Mouth: No Airway Compromise Head: Atraumatic, Normocephalic Neck: Full Range of Motion Respiratory/Chest: No Respiratory Distress Cardiovascular: Regular Rate, Rhythm, No Edema, No Murmur, No Rub GI/Abdominal: Soft, Non-Tender, No Distention, No Mass Extremities: Normal Range of Motion Neurological: Alert, Normal Cognition, No Motor/Sensory Deficits Psychiatric: Normal Affect, Normal Mood Skin Exam: Warm, Dry, Intact EKG INTERPRETATION EKG Date: 05/24/18 Time: 09:24 Rhythm: NSR Rate (Beats/Min): 73 [place]: Normal P-Wave: Present QRS: LBBB ST-T: Normal Comparison: No Change (05/04/18) Course - Vital Signs Last Recorded V/S: Last Vital Signs Temp 36.8 C 05/24/18 08:50 Pulse 78 05/24/18 08:50 Resp 16 05/24/18 08:50 BP 173/80 H 05/24/18 08:50 Pulse Ox 96 05/24/18 08:50 - Orders/Labs/Meds Orders: Active Orders 24 hr Category Date Time Status INR,PT,PROTHROMBIN TIME [COAG] Stat Lab 05/24/18 09:28 Received PTT,PARTIAL THROMBOPLSTIN TIME [COAG] Stat Lab 05/24/18 09:28 Received Metoprolol Tartrate [Lopressor] Med 05/24/18 10:23 Once 25 mg PO ONETIME ONE Sodium Chloride 0.9% [Saline Flush] Med 05/24/18 10:04 Active 10 ml FLUSH ASDIRECTED PRN Saline Lock Insert [OM.PC] Routine Oth 05/24/18 10:04 Ordered EKG 12 Lead [EK] Stat Ther 05/24/18 09:18 Ordered Medication Orders Sodium Chloride (Saline Flush) 10 ml FLUSH ASDIRECTED PRN PRN Reason: Keep Vein Open Labs: Laboratory Tests 05/24/18 05/24/18 05/24/18 Range/Units 09:28 09:28 09:28 WBC 6.8 (4.5-12.0) X10-3/uL RBC 3.76 (3.23-5.20) x10(6)uL Hgb 12.2 (11.5-15.5) g/dL Hct 36.4 (30.0-51.3) % MCV 96.8 H (80-96) fL MCH 32.6 (27.7-33.6) pg MCHC 33.7 (32.2-35.4) g/dL RDW 13.7 (11.5-15.5) % Plt Count 240 (125-369) X10(3)uL MPV 7.6 (7.4-10.4) fL Neut % (Auto) 71.3 (46-82) % Lymph % (Auto) 16.9 (13-37) % [place] % (Auto) 10.0 (4-12) % Eos % (Auto) 1 (1.0-5.0) % Baso % (Auto) 1 (0-2) % Neut # (Auto) 4.8 (1.6-8.3) # Lymph # (Auto) 1.2 (0.6-5.0) # [place] # (Auto) 0.7 (0.0-1.3) # Eos # (Auto) 0.1 (0.0-0.8) # Baso # (Auto) 0.0 (0.0-0.2) # Sodium 134 L (135-145) mmol/L Potassium 4.4 D (3.5-5.3) mmol/L Chloride 102 (100-110) mmol/L Carbon Dioxide 27 (21-32) mmol/L BUN 23 H (7-18) mg/dL Creatinine 0.8 (0.55-1.02) mg/dL Est Cr Clr Drug Dosing 48.59 mL/min Estimated GFR (MDRD) > 60 (>60) BUN/Creatinine Ratio 28.8 H (9-20) Glucose 94 (80-116) mg/dL Calcium 8.9 (8.6-10.2) mg/dL Total Bilirubin 1.7 H (0.1-1.3) mg/dL AST 36 H (5-25) IU/L ALT 47 H (12-36) U/L Alkaline Phosphatase 202 H (56-112) IU/L Troponin I 0.146 H* (<0.017-0.056) ng/mL Total Protein 7.0 (6.0-8.0) g/dL Albumin 3.2 (3.2-4.6) g/dL Globulin 3.8 g/dL Albumin/Globulin Ratio 0.8 Urine Color (YELLOW) Urine Appearance (CLEAR) Urine pH (5.0-6.5) Ur Specific [place] (1.010-1.025) Urine Protein (NEGATIVE) mg/dL Urine Glucose (UA) (NEGATIVE) mg/dL Urine Ketones (NEGATIVE) mg/dL Urine Occult Blood (NEGATIVE) Urine Nitrite (NEGATIVE) Urine Bilirubin (NEGATIVE) Urine Urobilinogen (NEGATIVE) mg/dL Ur Leukocyte Esterase (NEGATIVE) Urine RBC (0) Urine WBC (0) Ur Squamous Epith Cells (NS,R,O) Urine Bacteria (NS) 05/24/18 Range/Units 09:35 WBC (4.5-12.0) X10-3/uL RBC (3.23-5.20) x10(6)uL Hgb (11.5-15.5) g/dL Hct (30.0-51.3) % MCV (80-96) fL MCH (27.7-33.6) pg MCHC (32.2-35.4) g/dL RDW (11.5-15.5) % Plt Count (125-369) X10(3)uL MPV (7.4-10.4) fL Neut % (Auto) (46-82) % Lymph % (Auto) (13-37) % [place] % (Auto) (4-12) % Eos % (Auto) (1.0-5.0) % Baso % (Auto) (0-2) % Neut # (Auto) (1.6-8.3) # Lymph # (Auto) (0.6-5.0) # [place] # (Auto) (0.0-1.3) # Eos # (Auto) (0.0-0.8) # Baso # (Auto) (0.0-0.2) # Sodium (135-145) mmol/L Potassium (3.5-5.3) mmol/L Chloride (100-110) mmol/L Carbon Dioxide (21-32) mmol/L BUN (7-18) mg/dL Creatinine (0.55-1.02) mg/dL Est Cr Clr Drug Dosing mL/min Estimated GFR (MDRD) (>60) BUN/Creatinine Ratio (9-20) Glucose (80-116) mg/dL Calcium (8.6-10.2) mg/dL Total Bilirubin (0.1-1.3) mg/dL AST (5-25) IU/L ALT (12-36) U/L Alkaline Phosphatase (56-112) IU/L Troponin I (<0.017-0.056) ng/mL Total Protein (6.0-8.0) g/dL Albumin (3.2-4.6) g/dL Globulin g/dL Albumin/Globulin Ratio Urine Color Yellow (YELLOW) Urine Appearance Clear (CLEAR) Urine pH 5.0 (5.0-6.5) Ur Specific [place] 1.020 (1.010-1.025) Urine Protein Negative (NEGATIVE) mg/dL Urine Glucose (UA) Normal (NEGATIVE) mg/dL Urine Ketones Negative (NEGATIVE) mg/dL Urine Occult Blood Negative (NEGATIVE) Urine Nitrite Negative (NEGATIVE) Urine Bilirubin Negative (NEGATIVE) Urine Urobilinogen Normal (NEGATIVE) mg/dL Ur Leukocyte Esterase Negative (NEGATIVE) Urine RBC 0-5 (0) Urine WBC 0-5 (0) Ur Squamous Epith Cells Few H (NS,R,O) Urine Bacteria Rare H (NS) Meds: Medications Generic Name Dose Route Start Last Admin Trade Name Freq PRN Reason Stop Dose Admin Sodium Chloride 10 ml 05/24/18 10:04 Saline Flush FLUSH ASDIRECTED PRN Keep Vein Open Discontinued Medications Generic Name Dose Route Start Last Admin Trade Name Freq PRN Reason Stop Dose Admin Aspirin 324 mg 05/24/18 10:15 Aspirin PO 05/24/18 10:16 ONETIME ONE Ondansetron HCl 4 mg 05/24/18 09:19 05/24/18 09:28 Zofran Odt PO 05/24/18 09:20 4 mg ONETIME ONE Administration - Re-Assessments/Exams Free Text/Narrative Re-Assessment/Exam: 05/24/18 10:30 Nausea slightly improved. 05/24/18 10:31 Dr. Vance accepts patient for transfer to [facility], advises against Heparin drip or Lovenox at this time. Departure - Departure Time of Disposition: 10:32 Disposition: DC/Tfer to Acute Hospital 02 Condition: Fair Clinical Impression: IL, Myocardial infarction Vomiting Qualifiers: Vomiting type: unspecified Vomiting Intractability: non-intractable Nausea presence: with nausea Qualified Code(s): R11.2 - Nausea with vomiting, unspecified - Discharge Information *PRESCRIPTION DRUG MONITORING PROGRAM REVIEWED*: No *COPY OF PRESCRIPTION DRUG MONITORING REPORT IN PATIENT [place]ORO: Not Applicable Referrals: Chad Alvarez MD [Primary Care Provider] - Forms: ED Department Discharge - My Orders Last 24 Hours: My Active Orders 05/24/18 09:18 EKG 12 Lead [EK] Stat 05/24/18 09:28 INR,PT,PROTHROMBIN TIME [COAG] Stat PTT,PARTIAL THROMBOPLSTIN TIME [COAG] Stat 05/24/18 10:04 Sodium Chloride 0.9% [Saline Flush] 10 ml FLUSH ASDIRECTED PRN Saline Lock Insert [OM.PC] Routine 05/24/18 10:23 Metoprolol Tartrate [Lopressor] 25 mg PO ONETIME ONE - Assessment/Plan Last 24 Hours: My Active Orders 05/24/18 09:18 EKG 12 Lead [EK] Stat 05/24/18 09:28 INR,PT,PROTHROMBIN TIME [COAG] Stat PTT,PARTIAL THROMBOPLSTIN TIME [COAG] Stat 05/24/18 10:04 Sodium Chloride 0.9% [Saline Flush] 10 ml FLUSH ASDIRECTED PRN Saline Lock Insert [OM.PC] Routine 05/24/18 10:23 Metoprolol Tartrate [Lopressor] 25 mg PO ONETIME ONE
[2018-05-24] MEDS ORDERED: Sodium Chloride 0.9% 10 ML Syringe FLUSH PRN (10:04)
[2018-05-24] MEDS ORDERED: Aspirin 81 MG Tab.Chew PO ONE (10:15)
[2018-05-24] MEDS ORDERED: Metoprolol Tartrate 25 MG Tab PO ONE (10:23)
[2018-05-24] MEDS ORDERED: Ondansetron 4 MG/2 ML SDV IVPUSH ONE (11:54)
[2018-05-25 07:46] VITALS: BP 156/72
== END 2018-05-24 12:05 ==
LOC: FB.ED 08:50
DX: I21.9 Acute myocardial infarction, unspecified (principal); R11.2 Nausea with vomiting, unspecified; I10 Essential (primary) hypertension; Z79.899 Other long term (current) drug therapy; Z88.8 Allergy status to other drugs, medicaments and biological substances
CPT/HCPCS: 36415; 80053; 81001; 84484; 85025; 85610; 85730; 93005; 96374; 99284; A9270; J2405; J7050

== ENCOUNTER 2018-12-21 08:32 | Emergency (ER) | payer MEDICARE, BC ==
[2018-12-21 09:28] VITALS: BP 147/64
--- NOTE | 2018-12-21 09:51 | EDM.PDOC ---
ED HPI GENERAL MEDICAL PROBLEM - General Chief Complaint: Cardiovascular Problem Stated Complaint: HBP Time Seen by Provider: 12/21/18 08:35 Source of Information: Reports: Patient, Family (daughter) History Limitations: Reports: No Limitations - History of Present Illness INITIAL COMMENTS - FREE TEXT/NARRATIVE: 78 y.o.w.f with a h/O HTN came to the ed with her daughter because Pt's BP was 210/110 this am. Pt took her BP meds and was rushed to the ED by her daughter. On arrival the pt denied any constitutional symptoms, her BP was 146/59. No N/V/ D no dizziness or any other acute med issues. BP 146/59 Pulse 75 RR 18 Pulse ox 99% on RA temp 36.6 Onset Date: 12/21/18 Onset Time: 07:30 Duration: Minutes:, Hour(s):, Other (elevated BP) - Related Data Allergies Allergy/AdvReac Type Severity Reaction Status Date / Time rivaroxaban [From Xarelto] Allergy Other Verified 12/21/18 08:42 warfarin sodium Allergy Weakness Verified 12/21/18 08:42 [From Coumadin] Home Meds: Home Meds Carvedilol 12.5 mg PO BIDMEALS 06/01/17 [History] Lisinopril 5 mg PO DAILY 06/01/17 [History] Aspirin 81 mg PO DAILY 08/29/18 [History] Gluc HCl/Csa/Shalini Hy/Hyalur Ac [Glucosamine Chondroitin] 1 each PO DAILY [History] atorvaSTATin Calcium [Atorvastatin Calcium] 40 mg PO DAILY 08/29/18 [History] Calcium Carbonate/Vitamin D3 [Calcium Carb 500 MG] 500 mg PO DAILY PRN 12/21/18 [History] Carboxymethylcellulose Sodium [Thera Tears] 1 drop EYEBOTH DAILY 12/21/18 [ History] Diclofenac Sodium [Voltaren 0.1% Ophth Soln] 2 gm TOP DAILY 12/21/18 [History] Isosorbide Mononitrate [Isosorbide Mononitrate ER] 30 mg PO DAILY 12/21/18 [ History] Multivitamin [Multi-Vitamin Daily] 1 tab PO DAILY 12/21/18 [History] Naproxen 250 mg PO BID 12/21/18 [History] Potassium Chloride 10 meq PO DAILY 12/21/18 [History] Sertraline [Zoloft] 50 mg PO DAILY 12/21/18 [History] Past Medical History HEENT History: Reports: Cataract Cardiovascular History: Reports: CAD, High Cholesterol, Hypertension, [place], Other (See Below) Other Cardiovascular History: cardiomegaly Gastrointestinal History: Reports: Cholelithiasis, Hiatal Hernia Other Gastrointestinal History: LEFT HERNIA SURGERY; HX RECTAL PROLAPSE Genitourinary History: Reports: None 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 NEEDS DIRECTION MUCH AT TIME OF ADMISSION Endocrine/Metabolic History: Reports: None Other Endocrine/Metabolic History: watching the thyroid due to nodules Hematologic History: Reports: Blood Transfusion(s) Other Hematologic History: GI BLEED WHILE ON BLOOD THINNER Immunologic History: Reports: None Oncologic (Cancer) History: Reports: None Dermatologic History: Reports: None - Infectious Disease History Infectious Disease History: Reports: Chicken Pox, Measles - Past Surgical History Head Surgeries/Procedures: Reports: None HEENT Surgical History: Reports: Cataract Surgery, Tonsillectomy Cardiovascular Surgical History: Reports: None GI Surgical History: Reports: Appendectomy, Cholecystectomy, Colon, Colonoscopy , Hernia, Inguinal, Jillian Fundoplication Other GI Surgeries/Procedures: PARTIAL COLECTOMY Female Surgical History: Reports: Hysterectomy Endocrine Surgical History: Reports: Other (See Below) Other Endocrine Surgeries/Procedures: Pt is to going to have her thyroid checked this week, as there were some abnormalities Musculoskeletal Surgical History: Reports: Knee Replacement Other Musculoskeletal Surgeries/Procedures:: PAST FX LEFT FEMUR ET LEFT WRIST , ALSO HAS SCAR FROM LOW BACK SURGERY, BUT COULD NOT REMEMBER ONE. FOOT SURGERY PER HX Social & Family History - Family History Family Medical History: Noncontributory - Tobacco Use Smoking Status *Q: Never Smoker - Caffeine Use Caffeine Use: Reports: Coffee - Recreational Drug Use Recreational Drug Use: No ED ROS GENERAL - Review of Systems Review Of Systems: See Below Constitutional: Reports: No Symptoms HEENT: Reports: No Symptoms Respiratory: Reports: No Symptoms Cardiovascular: Reports: No Symptoms Endocrine: Reports: No Symptoms GI/Abdominal: Reports: No Symptoms : Reports: No Symptoms Musculoskeletal: Reports: No Symptoms Skin: Reports: No Symptoms Neurological: Reports: No Symptoms Psychiatric: Reports: No Symptoms Hematologic/Lymphatic: Reports: No Symptoms Immunologic: Reports: No Symptoms ED EXAM, GENERAL - Physical Exam Exam: See Below Exam Limited By: No Limitations General Appearance: Alert, WD/WN, No Apparent Distress Eye Exam: Bilateral Eye: Normal Inspection Ears: Normal External Exam Ear Exam: Bilateral Ear: Auricle Normal Nose: Normal Inspection, Normal Mucosa, No Blood Throat/Mouth: Normal Inspection, Normal Lips, Normal Voice, No Airway Compromise Head: Atraumatic, Normocephalic Neck: Normal Inspection, Supple, Non-Tender, Full Range of Motion Respiratory/Chest: No Respiratory Distress, Lungs Clear, Normal Breath Sounds, No Accessory Muscle Use, Chest Non-Tender Cardiovascular: Normal Peripheral Pulses, Regular Rate, Rhythm, No Edema, No Gallop, No JVD, No Murmur Peripheral Pulses: 1+: Carotid (R) GI/Abdominal: Normal Bowel Sounds, No Organomegaly, No Abnormal Bruit, No Mass, Pelvis Stable, Tender (epigastric) (Female) Exam: Deferred Rectal (Female) Exam: Deferred Back Exam: Normal Inspection, Full Range of Motion Extremities: Normal Inspection, Normal Range of Motion, Non-Tender, No Pedal Edema, Normal Capillary Refill Neurological: Alert, Oriented, CN II-XII Intact, Normal Cognition, Normal Gait Psychiatric: Normal Affect, Normal Mood Skin Exam: Warm, Dry, Intact, Normal Color, No Rash Lymphatic: No Adenopathy Course - Vital Signs Text/Narrative:: 78 y.o.w.f with a h/O HTN came to the ed with her daughter because Pt's BP was 210/110 this am. Pt took her BP meds and was rushed to the ED by her daughter. On arrival the pt denied any constitutional symptoms, her BP was 146/59. No N/V/ D no dizziness or any other acute med issues. BP 146/59 Pulse 75 RR 18 Pulse ox 99% on RA temp 36.6 PE: Thin, WNWD W F in her usual state of health. Impression: H/O HTN Tx: None in the ED Reexam: Pt was reexamined 1 hour later and was doing fine. Her BP was 147/69 on D/C form the ed. Plan: D/C with instructions Last Recorded V/S: Last Vital Signs Temp 36.8 C 12/21/18 08:35 Pulse 66 12/21/18 09:27 Resp 18 12/21/18 08:35 BP 147/64 H 12/21/18 09:27 Pulse Ox 99 12/21/18 08:35 Departure - Departure Time of Disposition: 09:49 Disposition: Home, Self-Care 01 Condition: Good Clinical Impression: Hypertension Qualifiers: Hypertension type: essential hypertension Qualified Code(s): I10 - Essential ( primary) hypertension Instructions: Hypertension, [id number] Referrals: Chad Alvarez MD [Primary Care Provider] - Forms: ED Department Discharge Additional Instructions: Please cont your current meds, please please F/U, please come back if your symptoms get worse acutely.
== END 2018-12-21 10:00 | disposition home or self-care (01) ==
LOC: FB.ED 08:32
DX: I10 Essential (primary) hypertension (principal); E78.00 Pure hypercholesterolemia, unspecified; I25.10 Atherosclerotic heart disease of native coronary artery without angina pectoris; I25.2 Old myocardial infarction; Z88.8 Allergy status to other drugs, medicaments and biological substances; Z79.899 Other long term (current) drug therapy; Z79.82 Long term (current) use of aspirin
CPT/HCPCS: 99283

== ENCOUNTER 2018-12-28 15:58 | Emergency (ER) | payer MEDICARE, BC ==
[2018-12-28] MEDS ORDERED: Sodium Chloride 0.9% 10 ML Syringe FLUSH PRN (16:27)
[2018-12-28] MEDS ORDERED: Sodium Chloride 0.9% 500 ML IV ONE (16:27)
[2018-12-28] MEDS ORDERED: HYDROmorphone 2 MG/ML SDV IVPUSH ONE (16:28)
[2018-12-28] MEDS ORDERED: Ondansetron 4 MG/2 ML SDV IVPUSH ONE (16:28)
--- NOTE | 2018-12-28 16:34 | EDM.PDOC ---
ED HPI GENERAL MEDICAL PROBLEM - General Chief Complaint: Abdominal Pain Stated Complaint: L SIDE ABD PAIN Time Seen by Provider: 12/28/18 16:29 Source of Information: Reports: Patient History Limitations: Reports: No Limitations - History of Present Illness INITIAL COMMENTS - FREE TEXT/NARRATIVE: Presents with non-radiating LLQ pain x 2 days associated with N/V. No diarrhea, but stools have been loose. Has a prior h/o diverticulitis. Underwent pulmonary AVM embolization @2 weeks ago @[facility]. Onset Date: 12/26/18 Duration: Day(s): (2) Location: Reports: Abdomen Quality: Reports: Ache Severity: Moderate Associated Symptoms: Reports: Nausea/Vomiting - Related Data Allergies Allergy/AdvReac Type Severity Reaction Status Date / Time rivaroxaban [From Xarelto] Allergy Other Verified 12/28/18 16:17 warfarin sodium Allergy Weakness Verified 12/28/18 16:17 [From Coumadin] Home Meds: Home Meds Carvedilol 12.5 mg PO BIDMEALS 06/01/17 [History] Lisinopril 5 mg PO BID 06/01/17 [History] Aspirin 81 mg PO DAILY 08/29/18 [History] Gluc HCl/Csa/Shalini Hy/Hyalur Ac [Glucosamine Chondroitin] 1 each PO DAILY [History] atorvaSTATin Calcium [Atorvastatin Calcium] 40 mg PO DAILY 08/29/18 [History] Calcium Carbonate/Vitamin D3 [Calcium Carb 500 MG] 500 mg PO DAILY PRN 12/21/18 [History] Carboxymethylcellulose Sodium [Thera Tears] 1 drop EYEBOTH DAILY 12/21/18 [ History] Diclofenac Sodium [Voltaren 0.1% Ophth Soln] 2 gm TOP DAILY 12/21/18 [History] Isosorbide Mononitrate [Isosorbide Mononitrate ER] 30 mg PO DAILY 12/21/18 [ History] Multivitamin [Multi-Vitamin Daily] 1 tab PO DAILY 12/21/18 [History] Potassium Chloride 10 meq PO BID 12/21/18 [History] Sertraline [Zoloft] 50 mg PO DAILY 12/21/18 [History] Past Medical History HEENT History: Reports: Cataract Cardiovascular History: Reports: CAD, High Cholesterol, Hypertension, [place], Other (See Below) Other Cardiovascular History: cardiomegaly Gastrointestinal History: Reports: Cholelithiasis, Diverticulosis, Hiatal Hernia Other Gastrointestinal History: LEFT HERNIA SURGERY; HX RECTAL PROLAPSE Genitourinary History: Reports: None [employer] History: Reports: Musculoskeletal History: Reports: Arthritis, Back Pain, Chronic, Fracture, Osteoporosis Other Musculoskeletal History: FX PELVIS, LEFT ARM Neurological History: Reports: None Psychiatric History: Reports: Depression Other Psychiatric History: VAGUE MEMORY. NEEDS DIRECTION MUCH AT TIME OF ADMISSION Endocrine/Metabolic History: Reports: None Other Endocrine/Metabolic History: watching the thyroid due to nodules Hematologic History: Reports: Blood Transfusion(s) Other Hematologic History: GI BLEED WHILE ON BLOOD THINNER Immunologic History: Reports: None Oncologic (Cancer) History: Reports: None Dermatologic History: Reports: None - Infectious Disease History Infectious Disease History: Reports: Chicken Pox, Measles - Past Surgical History Head Surgeries/Procedures: Reports: None HEENT Surgical History: Reports: Cataract Surgery, Tonsillectomy Cardiovascular Surgical History: Reports: None GI Surgical History: Reports: Appendectomy, Cholecystectomy, Colon, Colonoscopy , Hernia, Inguinal, Jillian Fundoplication Other GI Surgeries/Procedures: PARTIAL COLECTOMY Female Surgical History: Reports: Hysterectomy Endocrine Surgical History: Reports: Other (See Below) Other Endocrine Surgeries/Procedures: Pt is to going to have her thyroid checked this week, as there were some abnormalities Musculoskeletal Surgical History: Reports: Knee Replacement Other Musculoskeletal Surgeries/Procedures:: PAST FX LEFT FEMUR ET LEFT WRIST , ALSO HAS SCAR FROM LOW BACK SURGERY, BUT COULD NOT REMEMBER ONE. FOOT SURGERY PER HX Social & Family History - Family History Family Medical History: Noncontributory - Tobacco Use Tobacco Use Within Last Twelve Months: No - Caffeine Use Caffeine Use: Reports: Coffee - Alcohol Use Alcohol Use History: No ED ROS GENERAL - Review of Systems Review Of Systems: ROS reveals no pertinent complaints other than HPI. ED EXAM, GI/ABD - Physical Exam Exam: See Below Exam Limited By: No Limitations General Appearance: Alert, WD/WN, No Apparent Distress Ears: Normal External Exam Nose: Normal Inspection Throat/Mouth: No Airway Compromise Head: Atraumatic, Normocephalic Neck: Full Range of Motion Respiratory/Chest: No Respiratory Distress, Lungs Clear, Normal Breath Sounds Cardiovascular: Regular Rate, Rhythm, No Murmur GI/Abdominal Exam: Normal Bowel Sounds, Soft, Tender (LLQ) Back Exam: No: CVA Tenderness (R), CVA Tenderness (L) Extremities: Normal Range of Motion Neurological: Alert, Normal Cognition, No Motor/Sensory Deficits Psychiatric: Normal Affect, Normal Mood Skin Exam: Warm, Dry, Intact Course - Vital Signs Last Recorded V/S: Last Vital Signs Temp 36.7 C 12/28/18 16:10 Pulse 87 12/28/18 16:10 Resp 16 12/28/18 16:10 BP 108/51 L 12/28/18 16:10 Pulse Ox 97 12/28/18 16:10 - Orders/Labs/Meds Orders: Active Orders 24 hr Category Date Time Status Enema [RC] ASDIRECTED Care 12/28/18 18:33 Active [place] Catheter Insertion [Insert Urinary Catheter] [OM. Care 12/28/18 18:30 Ordered PC] Q24H Urinary Catheter Assessment [RC] QSHIFT Care 12/28/18 18:28 Active Abdomen Pelvis w Cont [CT] Stat Exams 12/28/18 16:51 Taken Sodium Chloride 0.9% [Saline Flush] Med 12/28/18 16:27 Active 10 ml FLUSH ASDIRECTED PRN Saline Lock Insert [OM.PC] Routine Oth 12/28/18 16:27 Ordered Medication Orders Sodium Chloride (Saline Flush) 10 ml FLUSH ASDIRECTED PRN PRN Reason: Keep Vein Open Labs: Laboratory Tests 12/28/18 12/28/18 12/28/18 Range/Units 16:33 16:33 16:33 WBC 10.6 (4.5-12.0) X10-3/uL RBC 3.53 (3.23-5.20) x10(6)uL Hgb 11.5 (11.5-15.5) g/dL Hct 33.3 (30.0-51.3) % MCV 94.3 (80-96) fL MCH 32.5 (27.7-33.6) pg MCHC 34.5 (32.2-35.4) g/dL RDW 13.5 (11.5-15.5) % Plt Count 188 (125-369) X10(3)uL MPV 8.2 (7.4-10.4) fL Add Manual Diff Yes Neutrophils % (Manual) 77 (46-82) % Band Neutrophils % 2 (0-6) % Lymphocytes % (Manual) 9 L (13-37) % Monocytes % (Manual) 12 (4-12) % PT 12.0 H (8.7-11.1) INR 1.24 H (0.89-1.13) Sodium 132 L (135-145) mmol/L Potassium 4.6 (3.5-5.3) mmol/L Chloride 99 L (100-110) mmol/L Carbon Dioxide 26 (21-32) mmol/L BUN 29 H D (7-18) mg/dL Creatinine 1.2 H (0.55-1.02) mg/dL Est Cr Clr Drug Dosing TNP Estimated GFR (MDRD) 43 L (>60) BUN/Creatinine Ratio 24.2 H (9-20) Glucose 136 H (80-116) mg/dL Calcium 8.6 (8.6-10.2) mg/dL Total Bilirubin 2.1 H (0.1-1.3) mg/dL AST 29 H D (5-25) IU/L ALT 42 H D (12-36) U/L Alkaline Phosphatase 191 H (56-112) IU/L Total Protein 6.3 (6.0-8.0) g/dL Albumin 3.1 L (3.2-4.6) g/dL Globulin 3.2 g/dL Albumin/Globulin Ratio 1.0 Amylase 34 (25-115) U/L Urine Color (YELLOW) Urine Appearance (CLEAR) Urine pH (5.0-6.5) Ur Specific [place] (1.010-1.025) Urine Protein (NEGATIVE) mg/dL Urine Glucose (UA) (NORMAL) mg/dL Urine Ketones (NEGATIVE) mg/dL Urine Occult Blood (NEGATIVE) Urine Nitrite (NEGATIVE) Urine Bilirubin (NEGATIVE) Urine Urobilinogen (NEGATIVE) mg/dL Ur Leukocyte Esterase (NEGATIVE) Urine RBC (0-5) Urine WBC (0-5) Ur Squamous Epith Cells (NS,R,O) Urine Bacteria (NS) 12/28/18 Range/Units 18:36 WBC (4.5-12.0) X10-3/uL RBC (3.23-5.20) x10(6)uL Hgb (11.5-15.5) g/dL Hct (30.0-51.3) % MCV (80-96) fL MCH (27.7-33.6) pg MCHC (32.2-35.4) g/dL RDW (11.5-15.5) % Plt Count (125-369) X10(3)uL MPV (7.4-10.4) fL Add Manual Diff Neutrophils % (Manual) (46-82) % Band Neutrophils % (0-6) % Lymphocytes % (Manual) (13-37) % Monocytes % (Manual) (4-12) % PT (8.7-11.1) INR (0.89-1.13) Sodium (135-145) mmol/L Potassium (3.5-5.3) mmol/L Chloride (100-110) mmol/L Carbon Dioxide (21-32) mmol/L BUN (7-18) mg/dL Creatinine (0.55-1.02) mg/dL Est Cr Clr Drug Dosing Estimated GFR (MDRD) (>60) BUN/Creatinine Ratio (9-20) Glucose (80-116) mg/dL Calcium (8.6-10.2) mg/dL Total Bilirubin (0.1-1.3) mg/dL AST (5-25) IU/L ALT (12-36) U/L Alkaline Phosphatase (56-112) IU/L Total Protein (6.0-8.0) g/dL Albumin (3.2-4.6) g/dL Globulin g/dL Albumin/Globulin Ratio Amylase (25-115) U/L Urine Color Yellow (YELLOW) Urine Appearance Clear (CLEAR) Urine pH 5.0 (5.0-6.5) Ur Specific [place] 1.015 (1.010-1.025) Urine Protein Negative (NEGATIVE) mg/dL Urine Glucose (UA) Normal (NORMAL) mg/dL Urine Ketones Negative (NEGATIVE) mg/dL Urine Occult Blood Negative (NEGATIVE) Urine Nitrite Negative (NEGATIVE) Urine Bilirubin Small H (NEGATIVE) Urine Urobilinogen Normal (NEGATIVE) mg/dL Ur Leukocyte Esterase Negative (NEGATIVE) Urine RBC 0-5 (0-5) Urine WBC 0-5 (0-5) Ur Squamous Epith Cells Rare (NS,R,O) Urine Bacteria Few H (NS) Meds: Medications Generic Name Dose Route Start Last Admin Trade Name Freq PRN Reason Stop Dose Admin Sodium Chloride 10 ml 12/28/18 16:27 Saline Flush FLUSH ASDIRECTED PRN Keep Vein Open Discontinued Medications Generic Name Dose Route Start Last Admin Trade Name Helen PRN Reason Stop Dose Admin Hydromorphone HCl 0.5 mg 12/28/18 16:28 12/28/18 16:53 Dilaudid IVPUSH 12/28/18 16:29 0.5 mg ONETIME ONE Administration Sodium Chloride 500 mls @ 500 mls/hr 12/28/18 16:27 12/28/18 16:45 Normal Saline IV 12/28/18 17:26 500 mls/hr .BOLUS ONE Administration Iopamidol 75 ml 12/28/18 17:28 12/28/18 17:37 Isovue-370 (76%) IV 12/28/18 17:29 75 ml ONETIME ONE Administration Ondansetron HCl 4 mg 12/28/18 16:28 12/28/18 16:53 Zofran IVPUSH 12/28/18 16:29 4 mg ONETIME ONE Administration Polyethylene Glycol 17 gm 12/28/18 20:16 Miralax PO 12/28/18 20:17 ONETIME ONE Sodium Biphosphate/Sodium Phosphate 133 ml 12/28/18 19:56 Fleet Enema RECTAL 12/28/18 19:57 ONETIME ONE - Radiology Interpretation Free Text/Narrative:: CT Abd/Pelvis w/ IV contrast: Large amount of stool in the colon and rectum. Mild chronic CBD dilatation. Osteopenia. - Re-Assessments/Exams Free Text/Narrative Re-Assessment/Exam: 12/28/18 20:19 Patient was unable to urinate, [place] placed, 500 ml urine collected. No BM after soap suds and fleets enema. Large amount of stool removed by manual disimpaction (per ED RN). Patient feels better. Departure - Departure Time of Disposition: 20:20 Disposition: Home, Self-Care 01 Condition: Good Clinical Impression: Constipation Qualifiers: Constipation type: unspecified constipation type Qualified Code(s): K59.00 - Constipation, unspecified - Discharge Information *PRESCRIPTION DRUG MONITORING PROGRAM REVIEWED*: No *COPY OF PRESCRIPTION DRUG MONITORING REPORT IN PATIENT ISIDORO: Not Applicable Instructions: Constipation, Adult Referrals: Chad Alvarez MD [Primary Care Provider] - 3 Days Forms: ED Department Discharge Additional Instructions: Take OTC Miralax or other stool softners daily. Avoid constipating foods. Increase fiber intake. Follow up with your primary physician in 2-3 days. Return to the ER if symptoms worsen. - My Orders Last 24 Hours: My Active Orders 12/28/18 16:27 Sodium Chloride 0.9% [Saline Flush] 10 ml FLUSH ASDIRECTED PRN Saline Lock Insert [OM.PC] Routine 12/28/18 16:51 Abdomen Pelvis w Cont [CT] Stat 12/28/18 18:28 Urinary Catheter Assessment [RC] QSHIFT 12/28/18 18:30 [place] Catheter Insertion [Insert Urinary Catheter] [OM.PC] Q24H 12/28/18 18:33 Enema [RC] ASDIRECTED - Assessment/Plan Last 24 Hours: My Active Orders 12/28/18 16:27 Sodium Chloride 0.9% [Saline Flush] 10 ml FLUSH ASDIRECTED PRN Saline Lock Insert [OM.PC] Routine 12/28/18 16:51 Abdomen Pelvis w Cont [CT] Stat 12/28/18 18:28 Urinary Catheter Assessment [RC] QSHIFT 12/28/18 18:30 [place] Catheter Insertion [Insert Urinary Catheter] [OM.PC] Q24H 12/28/18 18:33 Enema [RC] ASDIRECTED
[2018-12-28] MEDS ORDERED: Iopamidol 755 Mg/ML 75 ML Bottle IV ONE (17:28)
[2018-12-28] MEDS ORDERED: Sodium Phosphate,Monobasic/Sodium Phosphate,Dibasic Enema 133 ML Bottle RECTAL ONE (19:56)
[2018-12-28] MEDS ORDERED: Polyethylene Glycol 3350 Powder 17 GM Packet PO ONE (20:16)
[2018-12-28 23:24] VITALS: BP 136/61
== END 2018-12-28 20:45 | disposition home or self-care (01) ==
LOC: FB.ED 15:58
DX: K59.00 Constipation, unspecified (principal); I10 Essential (primary) hypertension; Z88.8 Allergy status to other drugs, medicaments and biological substances; Z79.82 Long term (current) use of aspirin; Z79.899 Other long term (current) drug therapy
CPT/HCPCS: 36415; 51702; 74177; 80053; 81001; 82150; 85025; 85610; 96361; 96374; 96375; 99284; A9270; J1170; J2405; J7040; Q9967

== ENCOUNTER 2018-12-29 14:43 | Emergency (ER) | payer MEDICARE, BC ==
[2018-12-29] MEDS ORDERED: Acetaminophen/HYDROcodone 325-5 MG Tab PO ONE (14:44)
--- NOTE | 2018-12-29 15:04 | EDM.PDOC ---
ED HPI GENERAL MEDICAL PROBLEM - General Chief Complaint: Gastrointestinal Problem Stated Complaint: BOWELS PAIN Time Seen by Provider: 12/29/18 14:59 Source of Information: Reports: Patient History Limitations: Reports: No Limitations - History of Present Illness INITIAL COMMENTS - FREE TEXT/NARRATIVE: Returns to the ER with persistent LLQ Abdominal pain x 3 days. Treated at [facility] ED yesterday, CT Abd/Pelvis done, diagnosed with stool impaction, was given 2 enemas without BM, was ultimately manually disimpacted and given Miralax prior to discharge. Patient has had multiple bowel movements overnight, now liquid. Denies vomiting. Duration: Day(s): (3) Location: Reports: Abdomen abdoemn left side Pain Score (Numeric/FACES): 7 - Related Data Allergies Allergy/AdvReac Type Severity Reaction Status Date / Time rivaroxaban [From Xarelto] Allergy Other Verified 12/29/18 15:00 warfarin sodium Allergy Weakness Verified 12/29/18 15:00 [From Coumadin] Home Meds: Home Meds Carvedilol 12.5 mg PO BIDMEALS 06/01/17 [History] Lisinopril 5 mg PO BID 06/01/17 [History] Aspirin 81 mg PO DAILY 08/29/18 [History] Gluc HCl/Csa/Shalini Hy/Hyalur Ac [Glucosamine Chondroitin] 1 each PO DAILY [History] atorvaSTATin Calcium [Atorvastatin Calcium] 40 mg PO DAILY 08/29/18 [History] Calcium Carbonate/Vitamin D3 [Calcium Carb 500 MG] 500 mg PO DAILY PRN 12/21/18 [History] Carboxymethylcellulose Sodium [Thera Tears] 1 drop EYEBOTH DAILY 12/21/18 [ History] Diclofenac Sodium [Voltaren 0.1% Ophth Soln] 2 gm TOP DAILY 12/21/18 [History] Isosorbide Mononitrate [Isosorbide Mononitrate ER] 30 mg PO DAILY 12/21/18 [ History] Multivitamin [Multi-Vitamin Daily] 1 tab PO DAILY 12/21/18 [History] Potassium Chloride 10 meq PO BID 12/21/18 [History] Sertraline [Zoloft] 50 mg PO DAILY 12/21/18 [History] Ciprofloxacin HCl [Cipro] 250 mg PO BID #20 tablet 12/29/18 [Rx] Loperamide HCl [Imodium A-D] 2 mg PO TID PRN #20 tablet 12/29/18 [Rx] metroNIDAZOLE [Flagyl] 500 mg PO TID #30 tab 12/29/18 [Rx] Past Medical History HEENT History: Reports: Cataract Cardiovascular History: Reports: CAD, High Cholesterol, Hypertension, [place], Other (See Below) Other Cardiovascular History: cardiomegaly Gastrointestinal History: Reports: Cholelithiasis, Diverticulosis, Hiatal Hernia Other Gastrointestinal History: LEFT HERNIA SURGERY; HX RECTAL PROLAPSE Genitourinary History: Reports: None [employer]NER History: Reports: Musculoskeletal History: Reports: Arthritis, Back Pain, Chronic, Fracture, Osteoporosis Other Musculoskeletal History: FX PELVIS, LEFT ARM Neurological History: Reports: None Psychiatric History: Reports: Depression Other Psychiatric History: VAGUE MEMORY. NEEDS DIRECTION MUCH AT TIME OF ADMISSION Endocrine/Metabolic History: Reports: None Other Endocrine/Metabolic History: watching the thyroid due to nodules Hematologic History: Reports: Blood Transfusion(s) Other Hematologic History: GI BLEED WHILE ON BLOOD THINNER Immunologic History: Reports: None Oncologic (Cancer) History: Reports: None Dermatologic History: Reports: None - Infectious Disease History Infectious Disease History: Reports: Chicken Pox, Measles - Past Surgical History Head Surgeries/Procedures: Reports: None HEENT Surgical History: Reports: Cataract Surgery, Tonsillectomy Cardiovascular Surgical History: Reports: None GI Surgical History: Reports: Appendectomy, Cholecystectomy, Colon, Colonoscopy , Hernia, Inguinal, Jillian Fundoplication Other GI Surgeries/Procedures: PARTIAL COLECTOMY Female Surgical History: Reports: Hysterectomy Endocrine Surgical History: Reports: Other (See Below) Other Endocrine Surgeries/Procedures: Pt is to going to have her thyroid checked this week, as there were some abnormalities Musculoskeletal Surgical History: Reports: Knee Replacement Other Musculoskeletal Surgeries/Procedures:: PAST FX LEFT FEMUR ET LEFT WRIST , ALSO HAS SCAR FROM LOW BACK SURGERY, BUT COULD NOT REMEMBER ONE. FOOT SURGERY PER HX Social & Family History - Family History Family Medical History: Noncontributory - Caffeine Use Caffeine Use: Reports: Coffee ED ROS GENERAL - Review of Systems Review Of Systems: ROS reveals no pertinent complaints other than HPI. ED EXAM, GI/ABD - Physical Exam Exam: See Below Exam Limited By: No Limitations General Appearance: Alert, WD/WN, No Apparent Distress Ears: Normal External Exam Nose: Normal Inspection Throat/Mouth: No Airway Compromise Head: Atraumatic, Normocephalic Neck: Full Range of Motion Respiratory/Chest: No Respiratory Distress, Lungs Clear, Normal Breath Sounds Cardiovascular: Regular Rate, Rhythm, No Murmur GI/Abdominal Exam: Normal Bowel Sounds, Soft, Tender (LLQ) Neurological: Alert, Normal Cognition Psychiatric: Normal Affect, Normal Mood Skin Exam: Warm, Dry, Intact Course - Vital Signs Last Recorded V/S: Last Vital Signs Temp 36.8 C 12/29/18 14:45 Pulse 76 12/29/18 18:00 Resp 16 12/29/18 18:00 BP 114/53 L 12/29/18 18:00 Pulse Ox 97 12/29/18 18:00 - Orders/Labs/Meds Orders: Active Orders 24 hr Category Date Time Status Abdomen Pelvis w Cont [CT] Stat Exams 12/29/18 15:52 Ordered CDIFF TOXIN A+B GROUP [OP] Stat Lab 12/29/18 19:24 Ordered STOOL CULTURE Stat Lab 12/29/18 19:24 Ordered Diatrizoate Marisel/Diatrizoate Na [Gastrografin 37%] Med 12/29/18 17:00 Active 30 ml PO . DIRECTED Sodium Chloride 0.9% [Saline Flush] Med 12/29/18 15:51 Active 10 ml FLUSH ASDIRECTED PRN Isolation [COMM] Stat Oth 12/29/18 19:25 Ordered Saline Lock Insert [OM.PC] Routine Oth 12/29/18 15:51 Ordered Medication Orders Diatrizoate Meglum/Diatrizoate Sod (Gastrografin 37%) 30 ml PO . DIRECTED [facility] Last Admin: 12/29/18 18:32 Dose: 30 ml Sodium Chloride (Saline Flush) 10 ml FLUSH ASDIRECTED PRN PRN Reason: Keep Vein Open Last Admin: 12/29/18 16:15 Dose: 10 ml Labs: Laboratory Tests 12/29/18 12/29/18 12/29/18 Range/Units 15:02 15:02 15:02 WBC 7.9 (4.5-12.0) X10-3/uL RBC 3.54 (3.23-5.20) x10(6)uL Hgb 11.1 L (11.5-15.5) g/dL Hct 33.6 (30.0-51.3) % MCV 94.9 (80-96) fL MCH 31.4 (27.7-33.6) pg MCHC 33.1 (32.2-35.4) g/dL RDW 13.8 (11.5-15.5) % Plt Count 200 (125-369) X10(3)uL MPV 8.2 (7.4-10.4) fL Neut % (Auto) 79.1 (46-82) % Lymph % (Auto) 8.1 L (13-37) % Vance % (Auto) 11.8 (4-12) % Eos % (Auto) 1 (1.0-5.0) % Baso % (Auto) 1 (0-2) % Neut # (Auto) 6.4 (1.6-8.3) # Lymph # (Auto) 0.6 (0.6-5.0) # Vance # (Auto) 0.9 (0.0-1.3) # Eos # (Auto) 0.0 (0.0-0.8) # Baso # (Auto) 0.0 (0.0-0.2) # Sodium 135 (135-145) mmol/L Potassium 4.5 (3.5-5.3) mmol/L Chloride 101 (100-110) mmol/L Carbon Dioxide 28 (21-32) mmol/L BUN 29 H (7-18) mg/dL Creatinine 1.4 H (0.55-1.02) mg/dL Est Cr Clr Drug Dosing TNP Estimated GFR (MDRD) 36 L (>60) BUN/Creatinine Ratio 20.7 H (9-20) Glucose 113 (80-116) mg/dL Lactic Acid 1.7 (0.4-2.2) mmol/L Calcium 8.6 (8.6-10.2) mg/dL Meds: Medications Generic Name Dose Route Start Last Admin Trade Name Freq PRN Reason Stop Dose Admin Diatrizoate Meglum/Diatrizoate Sod 30 ml 12/29/18 17:00 12/29/18 18:32 Gastrografin 37% PO 30 ml . DIRECTED DONAVAN Administration Sodium Chloride 10 ml 12/29/18 15:51 12/29/18 16:15 Saline Flush FLUSH 10 ml ASDIRECTED PRN Administration Keep Vein Open Discontinued Medications Generic Name Dose Route Start Last Admin Trade Name Helen PRN Reason Stop Dose Admin Ciprofloxacin 250 mg 12/29/18 19:24 12/29/18 19:46 Ciprofloxacin Hcl PO 12/29/18 19:25 250 mg ONETIME ONE Administration Hydromorphone HCl 0.5 mg 12/29/18 15:52 12/29/18 16:15 Dilaudid IVPUSH 12/29/18 15:53 0.5 mg ONETIME ONE Administration Sodium Chloride 500 mls @ 500 mls/hr 12/29/18 15:51 12/29/18 19:39 Normal Saline IV 12/29/18 16:50 Not Given .BOLUS ONE Sodium Chloride 1,000 mls @ 500 mls/hr 12/29/18 16:10 12/29/18 16:15 Normal Saline IV 12/29/18 18:09 500 mls/hr ONETIME ONE Administration Iopamidol 58 ml 12/29/18 16:55 12/29/18 18:32 Isovue-370 (76%) IV 12/29/18 16:56 58 ml ONETIME ONE Administration Loperamide HCl 4 mg 12/29/18 19:21 Imodium PO 12/29/18 19:22 ONETIME ONE Metronidazole 500 mg 12/29/18 19:23 12/29/18 19:45 Flagyl PO 12/29/18 19:24 500 mg ONETIME ONE Administration Ondansetron HCl 4 mg 12/29/18 15:52 12/29/18 16:13 Zofran IVPUSH 12/29/18 15:53 4 mg ONETIME ONE Administration - Radiology Interpretation Free Text/Narrative:: CT Abd/Pelvis with IV and Oral contrast: No obstruction or perforation. Marked thickening of the sigmoid colon and rectum consistent. - Re-Assessments/Exams Free Text/Narrative Re-Assessment/Exam: 12/29/18 19:29 Symptoms have improved. Patient afebrile, normal WBC, CO2, and Lactate. Low probability of ischemic colitis. Departure - Departure Time of Disposition: 20:19 Disposition: Home, Self-Care 01 Condition: Good Clinical Impression: Colitis - Discharge Information *PRESCRIPTION DRUG MONITORING PROGRAM REVIEWED*: Yes *COPY OF PRESCRIPTION DRUG MONITORING REPORT IN PATIENT [place]IDORO: No Prescriptions: Ciprofloxacin HCl [Cipro] 250 mg PO BID #20 tablet Loperamide HCl [Imodium A-D] 2 mg PO TID PRN #20 tablet PRN Reason: Diarrhea metroNIDAZOLE [Flagyl] 500 mg PO TID #30 tab Instructions: Colitis Referrals: Chad Alvarez MD [Primary Care Provider] - 2 Days Forms: ED Department Discharge Additional Instructions: Fill prescriptions for Cipro, Flagyl and Imodium and take as directed. May take Hydrocodone 1 tablet every 6 hours as needed for pain. Follow up with your primary physician in 2 days. Return to the ER if symptoms worsen. - My Orders Last 24 Hours: My Active Orders 12/29/18 15:51 Sodium Chloride 0.9% [Saline Flush] 10 ml FLUSH ASDIRECTED PRN Saline Lock Insert [OM.PC] Routine 12/29/18 15:52 Abdomen Pelvis w Cont [CT] Stat 12/29/18 17:00 Diatrizoate Marisel/Diatrizoate Na [Gastrografin 37%] 30 ml PO . DIRECTED 12/29/18 19:24 CDIFF TOXIN A+B GROUP [OP] Stat STOOL CULTURE Stat 12/29/18 19:25 Isolation [COMM] Stat - Assessment/Plan Last 24 Hours: My Active Orders 12/29/18 15:51 Sodium Chloride 0.9% [Saline Flush] 10 ml FLUSH ASDIRECTED PRN Saline Lock Insert [OM.PC] Routine 12/29/18 15:52 Abdomen Pelvis w Cont [CT] Stat 12/29/18 17:00 Diatrizoate Marisel/Diatrizoate Na [Gastrografin 37%] 30 ml PO . DIRECTED 12/29/18 19:24 CDIFF TOXIN A+B GROUP [OP] Stat STOOL CULTURE Stat 12/29/18 19:25 Isolation [COMM] Stat
[2018-12-29] MEDS ORDERED: Sodium Chloride 0.9% 10 ML Syringe FLUSH PRN (15:51)
[2018-12-29] MEDS ORDERED: Sodium Chloride 0.9% 500 ML IV ONE (15:51)
[2018-12-29] MEDS ORDERED: HYDROmorphone 2 MG/ML SDV IVPUSH ONE (15:52)
[2018-12-29] MEDS ORDERED: Ondansetron 4 MG/2 ML SDV IVPUSH ONE (15:52)
--- NOTE | 2018-12-29 15:56 | CR ---
INDICATION: Left lower quadrant abdominal pain. ABDOMEN: Supine and upright views of the abdomen with three images were obtained 12/29/18 and revealed the urinary bladder to be opacified with IV contrast administered on CT scan yesterday. Air fluid levels are noted in the colon, which for the most part were present previously and may be on the basis of a process such as gastroenteritis or excessive fluid intake. The bowel loops are mildly distended with gas and fluid , which may be on the basis of paralytic ileus additionally. A functionally obstructive process may be present, rather than a mechanically obstructive process; however, findings should be correlated clinically. The distended urinary bladder could be on the basis of urinary retention. 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 No evidence of free air was noted under the hemidiaphragm leaves. IMPRESSION: Similar findings to previous day, question a paralytic ileus involving the large and small bowel and possible urinary retention - correlate clinically. MTDD
[2018-12-29] MEDS ORDERED: Sodium Chloride 0.9% 1,000 ML IV ONE (16:10)
[2018-12-29] MEDS ORDERED: Iopamidol 755 Mg/ML 75 ML Bottle IV ONE (16:55)
[2018-12-29] MEDS ORDERED: Diatrizoate Meglumine/Diatrizoate Sodium 37% 30 ML Bottle PO SCH (17:00)
[2018-12-29] MEDS ORDERED: metroNIDAZOLE 500 MG Tab PO ONE (19:23)
[2018-12-29] MEDS ORDERED: Ciprofloxacin 250 MG Tab PO ONE (19:24)
[2018-12-29] MEDS: Loperamide 2 MG Cap PO ONE ×2 (20:20→20:36)
[2018-12-29 23:08] VITALS: BP 108/72
--- NOTE | 2018-12-30 09:26 | CT ---
INDICATION: Left lower quadrant abdominal pain. CT ABDOMEN AND PELVIS WITH CONTRAST: Spiral 3.75 mm axial sections were obtained through the abdomen and pelvis with oral and IV contrast (58 mL Isovue 370 at 1.7 mL/second), with sagittal and coronal reconstructions, 12/29/18, and were compared with 12/28/18. Total exam DLP = 315.19 mGy-cm. Oral contrast is noted to extend throughout the large bowel and small bowel with filling of the entire colon. There is noted marked thickening of the wall of the distalmost descending colon and much more prominently the sigmoid colon and rectum. There is evidence of anastomosis in the sigmoid colon area. The marked thickening of the wall could be on the basis of an infectious process or possibly ulcerative colitis but should be correlated clinically. Direct visualization may be helpful, depending upon clinical correlation. No specific mass lesion was identified in that area. No gross evidence of peritonitis was seen. No significant free fluid was seen. There is some minimal pericolonic fat stranding in that area. The urinary bladder appears slightly distended but otherwise unremarkable. No obstructive uropathy was seen at the kidneys. Multiple low density lesions in the kidneys likely are benign cystic structures. Fairly extensive calcifications are noted in arteries. Dextroconvex scoliosis of the upper lumbar spine is noted. Degenerative disk disease is noted in the thoracolumbar spine and also at L4-5 with grade 1 anterolisthesis at that level. There is also a minimal anterolisthesis at L5- S1. Disk disease is also suggested at L3-4 due to narrowing of the disk space. No additional organomegaly, mass lesions, or free fluid collections were identified in the abdomen or pelvis. The gallbladder is absent, compatible with history of its removal. The appendix is absent, compatible with history of its removal. The uterus is absent, compatible with history of its removal. No definite hiatal hernia is seen at this time. The heart appeared normal in size. No pericardial effusion was seen. The lower lung damon and pleural spaces visualized showed no evidence of an active infiltrate or effusion. The spleen and liver, as well as the less than ideally visualized pancreas, appear normal. IMPRESSION: 1. Fairly marked thickening of the wall of the sigmoid colon and rectal area, etiology indeterminate. Pericolonic inflammation is suggested, although no gross peritonitis was seen. The process may be an inflammatory process. Ischemia would be a consideration also, especially with the patients heavily calcified arteries. 2. Degenerative changes, disk disease, scoliosis thoracolumbosacral spine. 3. ASD with significant degree of calcification in the arteries. 4. Post cholecystectomy, appendectomy, hysterectomy, and anastomosis rectosigmoid area. 5. Multicystic changes in the kidneys. Report was called to Dr. Cortez at approximately 1900 hours on 12/29/18. [facility]
--- NOTE | 2018-12-30 19:50 | PCM.SN ---
- Free Text/Narrative Note: Patient was seen in the emergency department on 12/28 and 12/29/[address] Cortez. She had colitis as demonstrated via CT scan and was having diarrhea. The stool came back today positive for C. difficile. I called and talked to the patient and later her daughters. The patient is still having abdominal pain but she has been able to take fluids and some food by mouth and she has only had 1 more loose stool. She was placed on ciprofloxacin, Flagyl and loperamide and apparently she has had 2 doses of these antibiotics today. She has had no fevers. She's been able to ambulate well without weakness or dizziness. I told the patient and her daughters that the patient stop the ciprofloxacin, Flagyl and loperamide--not take these medications any more. I recommended that the daughters get Kefir yogurt and have the patient take this yogurt twice daily for the next 2 weeks and at least 3 times a week thereafter. I have also faxed a prescription to [facility] for vancomycin oral 125 mg to be taken 4 times a day for 10 days (the daughters are to pick this prescription up tomorrow morning and have the patient start this medication tomorrow morning). The patient has been scheduled for a follow-up appointment with at the [facility] in [place] on 01/02/2019. I have told the patient and advised the daughters to make sure the patient keeps this appointment.
== END 2018-12-29 20:58 | disposition home or self-care (01) ==
LOC: FB.ED 14:43
DX: K52.9 Noninfective gastroenteritis and colitis, unspecified (principal); I10 Essential (primary) hypertension; E78.00 Pure hypercholesterolemia, unspecified; I25.10 Atherosclerotic heart disease of native coronary artery without angina pectoris; I25.2 Old myocardial infarction; Z79.82 Long term (current) use of aspirin; Z79.899 Other long term (current) drug therapy; Z88.8 Allergy status to other drugs, medicaments and biological substances
CPT/HCPCS: 36415; 74019; 74177; 80048; 83605; 85025; 87045; 87046; 87324; 87427; 96361; 96374; 96375; 99284-25; A9270-GY; J1170; J2405; J7030; Q9963; Q9967

== ENCOUNTER 2019-01-12 11:17 | Emergency (ER) | payer MEDICARE, BC ==
[2019-01-12 11:58] VITALS: BP 137/65
[2019-01-12] MEDS ORDERED: Sodium Chloride 0.9% 10 ML Syringe FLUSH PRN (11:58)
[2019-01-12] MEDS ORDERED: Sodium Chloride 0.9% 1,000 ML IV SCH (12:15)
--- NOTE | 2019-01-12 12:16 | EDM.PDOC ---
ED HPI GENERAL MEDICAL PROBLEM - General Chief Complaint: Gastrointestinal Problem Stated Complaint: SENT FROM CLINIC Time Seen by Provider: 01/12/19 11:40 Source of Information: Reports: Patient, Family - History of Present Illness INITIAL COMMENTS - FREE TEXT/NARRATIVE: sent over from clinic today after found to have BP of 76/42 and feeling lightheaded. Diagnosed with C diff around [facility], started on oral vancomycin, per chart refilled 01/05 for five more days. Patient reports she didn't notice any improvement in symptoms with medications. Patient and daughters state today she is still having multiple loose stools, 3- 4X/day, though sometimes down to two. Has to run to the bathroom when she does feel the urge to defecate. Trying to drink a lot of water and other fluids and states her urine is normal, but she still feels thirsty, lightheaded and cold all the time. Some constant left lower quadrant pain, not worsening, doesn't wake her up at night. Appetite is good. No fever. (hx augmented by chart review) Remote history of episode of c diff many years ago. On December 16 she had surgery for AVM at [facility], and subsequently was having diarrhea, then couldn't go at all, by the time of her presentation here on 12/29 had severe colititis. Other recent history includes NSTEMI in 2018 and transferred to [facility]; she reports she has been there many times for her heart. Per daughters EF 35%? unable to verify in chart. - Related Data Allergies Allergy/AdvReac Type Severity Reaction Status Date / Time rivaroxaban [From Xarelto] Allergy Other Verified 01/12/19 11:51 warfarin sodium Allergy Weakness Verified 01/12/19 11:51 [From Coumadin] Home Meds: Home Meds Carvedilol 12.5 mg PO BIDMEALS 06/01/17 [History] Lisinopril 5 mg PO DAILY 06/01/17 [History] Aspirin 81 mg PO DAILY 08/29/18 [History] Gluc HCl/Csa/Shalini Hy/Hyalur Ac [Glucosamine Chondroitin] 1 each PO DAILY [History] atorvaSTATin Calcium [Atorvastatin Calcium] 40 mg PO DAILY 08/29/18 [History] Calcium Carbonate/Vitamin D3 [Calcium Carb 500 MG] 500 mg PO DAILY PRN 12/21/18 [History] Carboxymethylcellulose Sodium [Thera Tears] 1 drop EYEBOTH DAILY 12/21/18 [ History] Diclofenac Sodium [Voltaren 0.1% Ophth Soln] 2 gm TOP DAILY 12/21/18 [History] Isosorbide Mononitrate [Isosorbide Mononitrate ER] 30 mg PO DAILY 12/21/18 [ History] Multivitamin [Multi-Vitamin Daily] 1 tab PO DAILY 12/21/18 [History] Potassium Chloride 10 meq PO BID 12/21/18 [History] Sertraline [Zoloft] 50 mg PO DAILY 12/21/18 [History] Vancomycin 125 mg PO Q6H 5 Days #20 cap 01/12/19 [Rx] Past Medical History HEENT History: Reports: Cataract Cardiovascular History: Reports: Afib (paroxysmal. On ASA 325, other anticoagulation contraindicated d/t hx GI bleed. On coreg), CAD, Heart Failure , High Cholesterol, Hypertension, VT, Other (See Below) Other Cardiovascular History: cardiomegaly Gastrointestinal History: Reports: Cholelithiasis, Diverticulosis, Hiatal Hernia Other Gastrointestinal History: LEFT HERNIA SURGERY; HX RECTAL PROLAPSE; AVM sx December 2018 Genitourinary History: Reports: None [employer] History: Reports: Musculoskeletal History: Reports: Arthritis, Back Pain, Chronic, Fracture, Osteoporosis Other Musculoskeletal History: FX PELVIS, LEFT ARM Neurological History: Reports: None Psychiatric History: Reports: Depression Other Psychiatric History: VAGUE MEMORY. NEEDS DIRECTION MUCH AT TIME OF ADMISSION Endocrine/Metabolic History: Reports: None Other Endocrine/Metabolic History: watching the thyroid due to nodules Hematologic History: Reports: Blood Transfusion(s) Other Hematologic History: GI BLEED WHILE ON BLOOD THINNER Immunologic History: Reports: None Oncologic (Cancer) History: Reports: None Dermatologic History: Reports: None - Infectious Disease History Infectious Disease History: Reports: Chicken Pox, Measles - Past Surgical History Head Surgeries/Procedures: Reports: None HEENT Surgical History: Reports: Cataract Surgery, Tonsillectomy Cardiovascular Surgical History: Reports: None GI Surgical History: Reports: Appendectomy, Cholecystectomy, Colon, Colonoscopy , Hernia, Inguinal, Jillian Fundoplication Other GI Surgeries/Procedures: PARTIAL COLECTOMY Female Surgical History: Reports: Hysterectomy Endocrine Surgical History: Reports: Other (See Below) Other Endocrine Surgeries/Procedures: Pt is to going to have her thyroid checked this week, as there were some abnormalities Musculoskeletal Surgical History: Reports: Knee Replacement Other Musculoskeletal Surgeries/Procedures:: PAST FX LEFT FEMUR ET LEFT WRIST , ALSO HAS SCAR FROM LOW BACK SURGERY, BUT COULD NOT REMEMBER ONE. FOOT SURGERY PER HX Social & Family History - Family History Family Medical History: Noncontributory - Tobacco Use Smoking Status *Q: Never Smoker - Caffeine Use Caffeine Use: Reports: Coffee - Alcohol Use Alcohol Use History: No - Living Situation & Occupation Living situation: Reports: ( of cancer several years ago) Social History Comment: two daughters in area, also two other children with needs and not involved in care. Brother in [place] ED ROS GENERAL - Review of Systems Review Of Systems: ROS reveals no pertinent complaints other than HPI. Constitutional: Reports: Fatigue. Denies: Fever, Decreased Appetite Respiratory: Denies: Shortness of Breath, Wheezing, Pleuritic Chest Pain, Cough Cardiovascular: Reports: Lightheadedness. Denies: Chest Pain, Edema, Palpitations GI/Abdominal: Denies: Nausea, Vomiting : Denies: Dysuria, Frequency, Urgency Musculoskeletal: Denies: Joint Pain, Joint Swelling Neurological: Denies: Headache, Trouble Speaking, Gait Disturbance Hematologic/Lymphatic: Reports: Easy Bleeding, Easy Bruising ED EXAM, GENERAL - Physical Exam Exam: See Below Free Text/Narrative:: General: alert, pleasant, no acute distress Neck: supple EENT: pupils equal and reactive, throat without erythema, mucus membranes moist , no nasal congestion Heart: regular, no murmur heard Lungs: clear throughout, no wheezing, breathing easily and speaking in full sentences Abdomen: Positive bowel sounds, LLQ tenderness with no rebound, guarding, or rigidity. Rest of abdomen soft and nontender Vascular: +2 peripheral pulses, no lower extremity edema Neuro: facial muscles symmetric, mentation at baseline per family, equal strength bilaterally in both upper and lower extremities Skin: bruising noted from day-to-day activities, no rash or wounds, limited exam Psych: affect appropriate Course - Vital Signs Last Recorded V/S: Last Vital Signs Temp 35.9 C 01/12/19 11:17 Pulse 64 01/12/19 11:17 Resp 16 01/12/19 11:17 BP 137/65 01/12/19 11:17 Pulse Ox 100 01/12/19 11:17 Orthostatic Blood Pressure [ 127/71 Standing] Orthostatic Blood Pressure [ 156/69 Sitting] Orthostatic Blood Pressure [ 127/59 Supine] - Orders/Labs/Meds Orders: Active Orders 24 hr Category Date Time Status Sodium Chloride 0.9% [Normal Saline] 1,000 ml Med 01/12/19 12:15 Active IV ASDIRECTED Sodium Chloride 0.9% [Saline Flush] Med 01/12/19 11:58 Active 10 ml FLUSH ASDIRECTED PRN Saline Lock Insert [OM.PC] Routine Oth 01/12/19 11:58 Ordered Medication Orders Sodium Chloride (Normal Saline) 1,000 mls @ 125 mls/hr IV ASDIRECTED DONAVAN Last Admin: 01/12/19 12:15 Dose: 500 mls/hr Sodium Chloride (Saline Flush) 10 ml FLUSH ASDIRECTED PRN PRN Reason: Keep Vein Open Last Admin: 01/12/19 12:16 Dose: 10 ml Labs: Laboratory Tests 01/12/19 01/12/19 01/12/19 Range/Units 12:18 12:18 12:18 WBC 6.0 (4.5-12.0) X10-3/uL RBC 3.46 (3.23-5.20) x10(6)uL Hgb 11.0 L (11.5-15.5) g/dL Hct 32.8 (30.0-51.3) % MCV 95.0 (80-96) fL MCH 32.0 (27.7-33.6) pg MCHC 33.7 (32.2-35.4) g/dL RDW 13.6 (11.5-15.5) % Plt Count 154 (125-369) X10(3)uL MPV 8.2 (7.4-10.4) fL Neut % (Auto) 75.2 (46-82) % Lymph % (Auto) 15.1 (13-37) % [place] % (Auto) 8.4 (4-12) % Eos % (Auto) 1 (1.0-5.0) % Baso % (Auto) 1 (0-2) % Neut # (Auto) 4.6 (1.6-8.3) # Lymph # (Auto) 0.9 (0.6-5.0) # [place] # (Auto) 0.5 (0.0-1.3) # Eos # (Auto) 0.0 (0.0-0.8) # Baso # (Auto) 0.0 (0.0-0.2) # Sodium 139 (135-145) mmol/L Potassium 5.0 (3.5-5.3) mmol/L Chloride 103 (100-110) mmol/L Carbon Dioxide 30 (21-32) mmol/L BUN 18 D (7-18) mg/dL Creatinine 1.0 (0.55-1.02) mg/dL Est Cr Clr Drug Dosing 36.95 mL/min Estimated GFR (MDRD) 53 L (>60) BUN/Creatinine Ratio 18.0 (9-20) Glucose 98 (80-116) mg/dL Lactic Acid 1.0 (0.4-2.2) mmol/L Calcium 9.1 (8.6-10.2) mg/dL Total Bilirubin 1.7 H (0.1-1.3) mg/dL AST 35 H D (5-25) IU/L ALT 46 H (12-36) U/L Alkaline Phosphatase 131 H (56-112) IU/L C-Reactive Protein (0.5-0.9) mg/dL Total Protein 6.1 (6.0-8.0) g/dL Albumin 3.2 (3.2-4.6) g/dL Globulin 2.9 g/dL Albumin/Globulin Ratio 1.1 /02/25 Range/Units 12:18 WBC (4.5-12.0) X10-3/uL RBC (3.23-5.20) x10(6)uL Hgb (11.5-15.5) g/dL Hct (30.0-51.3) % MCV (80-96) fL MCH (27.7-33.6) pg MCHC (32.2-35.4) g/dL RDW (11.5-15.5) % Plt Count (125-369) X10(3)uL MPV (7.4-10.4) fL Neut % (Auto) (46-82) % Lymph % (Auto) (13-37) % [place] % (Auto) (4-12) % Eos % (Auto) (1.0-5.0) % Baso % (Auto) (0-2) % Neut # (Auto) (1.6-8.3) # Lymph # (Auto) (0.6-5.0) # [place] # (Auto) (0.0-1.3) # Eos # (Auto) (0.0-0.8) # Baso # (Auto) (0.0-0.2) # Sodium (135-145) mmol/L Potassium (3.5-5.3) mmol/L Chloride (100-110) mmol/L Carbon Dioxide (21-32) mmol/L BUN (7-18) mg/dL Creatinine (0.55-1.02) mg/dL Est Cr Clr Drug Dosing mL/min Estimated GFR (MDRD) (>60) BUN/Creatinine Ratio (9-20) Glucose (80-116) mg/dL Lactic Acid (0.4-2.2) mmol/L Calcium (8.6-10.2) mg/dL Total Bilirubin (0.1-1.3) mg/dL AST (5-25) IU/L ALT (12-36) U/L Alkaline Phosphatase (56-112) IU/L C-Reactive Protein < 0.2 L (0.5-0.9) mg/dL Total Protein (6.0-8.0) g/dL Albumin (3.2-4.6) g/dL Globulin g/dL Albumin/Globulin Ratio Meds: Medications Generic Name Dose Route Start Last Admin Trade Name Freq PRN Reason Stop Dose Admin Sodium Chloride 1,000 mls @ 125 mls/hr 01/12/19 12:15 01/12/19 12:15 Normal Saline IV 500 mls/hr ASDIRECTED DONAVAN Administration Sodium Chloride 10 ml 01/12/19 11:58 01/12/19 12:16 Saline Flush FLUSH 10 ml ASDIRECTED PRN Administration Keep Vein Open - Re-Assessments/Exams Free Text/Narrative Re-Assessment/Exam: 01/12/19 1130 patient seen and evaluated, initial BP low and orthostatics positive, otherwise nontoxic, exam benign - slight LLQ tenderness, normal mentation, very pleasant. Reported EF 35% per daughters and history of heart failure, will start with 500cc bolus fluids and check labs. OK to orally intake fluid also. Free Text/Narrative Re-Assessment/Exam: 01/12/19 1300 recheck - still doing well, requests some food. Daughters not present, patient updated that labs are normal. bolus finishing; will repeat orthostatics once complete. Free Text/Narrative Re-Assessment/Exam: 01/12/19 1345 repeat orthostatics improved, called and discussed case with hospitalist on-call , who has seen her previously outpatient. Recommended re-testing for c. diff at this point and f/u in clinic on or Saturday. Until re-test, would recommend repeat treatment for c diff at this time also. Reviewed IDSA guidelines, (Oct 2017) recommends pulse-taper treatment with vancomycin vs course of Fidaxomicin for presumed failed primary c. diff treatment. Will repeat 5 days oral vancomycin, and patient to followup later this week. Family now returned, and discussed labs and recommendations, as well as fluid intake, probiotics and diet at length. Patient drinking 3 small glasses (by description, 6oz maybe 8oz) of water per day and maybe 1/2 bottle of gatorade, recommended increasing. Discussed various probiotics and need to be taking 2-3X /day on ongoing basis. Also discussed general dietary guidelines - avoiding salt in particular because of heart. I wonder if maybe they have increased dairy recently to have more probiotic and this is causing some upset but it sounds like she has already tolerated well. All questions answered. Quick summary: labs normal, IVF given here repeat c diff testing increase oral fluids at home, continue probiotic new 5 day course vancomycin given f/u or Saturday outpatient clinic Departure - Departure Time of Disposition: 14:20 Disposition: Home, Self-Care 01 Condition: Good Clinical Impression: Dehydration, mild Diarrhea Qualifiers: Diarrhea type: presumed infectious Qualified Code(s): R19.7 - Diarrhea, unspecified - Discharge Information *PRESCRIPTION DRUG MONITORING PROGRAM REVIEWED*: Not Applicable *COPY OF PRESCRIPTION DRUG MONITORING REPORT IN PATIENT ISIDORO: Not Applicable Prescriptions: Vancomycin 125 mg PO Q6H 5 Days #20 cap Instructions: Diarrhea, Adult, Dehydration, Adult, [id number], Clostridium Difficile Infection, Vancomycin capsules Referrals: Chad Alvarez MD [Primary Care Provider] - Forms: ED Department Discharge Additional Instructions: new repeat prescription given for vancomycin given for 5 days continue daily probiotic: - kefir, yogurt with live cultures, activia - [id number] probiotic capsules are also available, ask the pharmacist. Recommend one with lactobacillus Need to keep daily fluid intake to match output. Probably need to increase amount of water, gatorade, you are drinking. Tea is also fine (caffeine free). diet - careful with salt due to heart. Otherwise - as you have been told by regular physician if low BP but not lightheaded/no symptoms, f/u in clinic if low BP and lightheaded, chest pain, or feeling like will fall -- should be seen sooner c diff kit sent home to retest stool followup in clinic on or Saturday - My Orders Last 24 Hours: My Active Orders 01/12/19 11:58 Sodium Chloride 0.9% [Saline Flush] 10 ml FLUSH ASDIRECTED PRN Saline Lock Insert [OM.PC] Routine 01/12/19 12:15 Sodium Chloride 0.9% [Normal Saline] 1,000 ml IV ASDIRECTED - Assessment/Plan Last 24 Hours: My Active Orders 01/12/19 11:58 Sodium Chloride 0.9% [Saline Flush] 10 ml FLUSH ASDIRECTED PRN Saline Lock Insert [OM.PC] Routine 01/12/19 12:15 Sodium Chloride 0.9% [Normal Saline] 1,000 ml IV ASDIRECTED
== END 2019-01-12 14:30 | disposition home or self-care (01) ==
LOC: FB.ED 11:17
DX: E86.0 Dehydration (principal); I48.91 Unspecified atrial fibrillation; E78.00 Pure hypercholesterolemia, unspecified; I10 Essential (primary) hypertension; I25.2 Old myocardial infarction; R19.7 Diarrhea, unspecified; Z88.8 Allergy status to other drugs, medicaments and biological substances; Z79.899 Other long term (current) drug therapy; Z79.82 Long term (current) use of aspirin
CPT/HCPCS: 36415; 80053; 83605; 85025; 86140; 96360; 99284; J7030; 87324

== ENCOUNTER 2022-04-12 03:36 | Emergency (ER) | payer MEDICARE, BC ==
[2022-04-12 04:42] LABS: ESTIMATED GFR 73 mL/min (>60)
[2022-04-12] MEDS ORDERED: Aspirin 81 MG Tab.Chew PO ONE (05:02)
[2022-04-12] MEDS ORDERED: Heparin Sodium 5,000 Units/ML Vial IVPUSH ONE (05:02)
[2022-04-12] MEDS ORDERED: Labetalol 20 MG/4 ML Syringe IVPUSH ONE (05:08)
[2022-04-12] MEDS ORDERED: Heparin Sodium/0.45% NaCl 500 ML IV SCH ×3 (05:30→05:36)
[2022-04-12] MEDS ORDERED: Pantoprazole 40 MG Vial IVPUSH ONE (05:37)
[2022-04-12] MEDS ORDERED: Sodium Chloride 0.9% 10 ML Syringe FLUSH PRN (06:07)
[2022-04-12] MEDS ORDERED: Metoprolol Succinate 25 MG Tab.ER PO ONE (06:12)
[2022-04-12] MEDS ORDERED: Metoprolol Tartrate 25 MG Tab PO ONE (06:16)
[2022-04-12 06:33] VITALS: PULSE 84
[2022-04-12] MEDS ORDERED: hydrALAZINE 20 MG/ML SDV IVPUSH STA (07:32)
[2022-04-12] MEDS ORDERED: amLODIPine 10 MG Tab PO STA (17:20)
[2022-04-12 17:24] VITALS: BP 171/87
[2022-04-12] MEDS ORDERED: amLODIPine 10 MG Tab PO SCH (21:00)
== END 2022-04-12 17:48 ==
LOC: FB.ED 03:36
DX: I21.4 Non-ST elevation (NSTEMI) myocardial infarction (principal); I11.0 Hypertensive heart disease with heart failure; I50.9 Heart failure, unspecified; I25.10 Atherosclerotic heart disease of native coronary artery without angina pectoris; I25.2 Old myocardial infarction; Z88.8 Allergy status to other drugs, medicaments and biological substances; Z79.01 Long term (current) use of anticoagulants; Z79.899 Other long term (current) drug therapy; Z79.82 Long term (current) use of aspirin; Z90.49 Acquired absence of other specified parts of digestive tract; Z90.710 Acquired absence of both cervix and uterus
CPT/HCPCS: 36415; 71045; 80053; 83880; 84484; 85025; 85610; 85730; 93005; 96365; 96366; 96375; 99285; A9270; C9113; J0360; J1644; J3490

== ENCOUNTER 2022-05-14 00:30 | Observation (INO) | payer MEDICARE, BC ==
[2022-05-14] MEDS ORDERED: Morphine 2 MG/ML SYRINGE IVPUSH PRN (03:15)
[2022-05-14] MEDS ORDERED: Docusate Sodium 100 MG Cap PO PRN (03:15)
[2022-05-14] MEDS ORDERED: Sodium Chloride 0.9% 10 ML Syringe FLUSH PRN (03:15)
[2022-05-14] MEDS ORDERED: Ondansetron 4 MG Tab.DIS PO PRN (03:15)
[2022-05-14] MEDS ORDERED: Acetaminophen 325 MG Tab PO PRN ×2 (03:15→03:22)
[2022-05-14] MEDS ORDERED: Calcium Carbonate 500 MG Tablet PO PRN ×2 (03:22→09:00)
[2022-05-14] MEDS ORDERED: Lisinopril 10 MG Tab PO SCH ×2 (03:30→09:00)
[2022-05-14] MEDS ORDERED: Carvedilol 25 MG Tab PO SCH ×2 (03:30→09:00)
[2022-05-14 03:33] LABS: ESTIMATED GFR 73 mL/min (>60)
[2022-05-14] MEDS ORDERED: Enoxaparin 60 MG/0.6 ML Syringe SUBCUT SCH (04:00)
[2022-05-14] MEDS ORDERED: Potassium Chloride 10 MEQ Tab.ER PO SCH (08:00)
[2022-05-14] MEDS ORDERED: Donepezil 5 MG Tab PO SCH (09:00)
[2022-05-14] MEDS ORDERED: atorvaSTATin 40 MG Tab PO SCH (09:00)
[2022-05-14] MEDS ORDERED: Dicyclomine 10 MG Cap PO SCH (09:00)
[2022-05-14] MEDS ORDERED: Multivitamin Tab PO SCH (09:00)
[2022-05-14] MEDS ORDERED: Aspirin 81 MG Tab.Chew PO SCH (09:00)
[2022-05-14] MEDS ORDERED: Sertraline 50 MG Tab PO SCH (09:00)
[2022-05-14] MEDS ORDERED: Carvedilol 12.5 MG Tab PO SCH (11:30)
[2022-05-14] MEDS ORDERED: Carvedilol 12.5 MG Tab**OWN MED PO SCH (11:45)
[2022-05-14] MEDS ORDERED: Aspirin 81 MG Tab.Chew**OWN MED PO SCH (11:45)
[2022-05-14] MEDS ORDERED: Aspirin 325 MG Tab.EC PO SCH (11:45)
[2022-05-14 11:54] VITALS: BP 175/94; PULSE 70
[2022-05-14] MEDS ORDERED: Carboxymethylcellulose Sodium 0.5% Ophth Soln 15 ML Bottle EYEBOTH SCH (21:00)
== END 2022-05-14 12:48 ==
LOC: FB.ED 00:30 → INTOOBSV 03:13 → FB.MS 03:13
PROVIDERS: ADMIT Student in an Organized Health Care Education/Training Program; ATTEND Student in an Organized Health Care Education/Training Program
DX: R06.02 Shortness of breath (principal); I48.91 Unspecified atrial fibrillation; I25.10 Atherosclerotic heart disease of native coronary artery without angina pectoris; E78.00 Pure hypercholesterolemia, unspecified; I10 Essential (primary) hypertension; I25.2 Old myocardial infarction; M81.0 Age-related osteoporosis without current pathological fracture; I42.8 Other cardiomyopathies; G47.33 Obstructive sleep apnea (adult) (pediatric); F32.9 Major depressive disorder, single episode, unspecified; Z88.8 Allergy status to other drugs, medicaments and biological substances; Z79.899 Other long term (current) drug therapy; Z79.82 Long term (current) use of aspirin; Z98.890 Other specified postprocedural states
CPT/HCPCS: 36415; 80048; 81001; 84484; 85027; 93005; A9270-GY; J1650